=== PATIENT | female | born 1955 | race African-American/Black ===

== ENCOUNTER 2016-12-28 16:49 | Inpatient (IN) | payer OTHER ==
[~2016-12-28] VITALS: Ht 170.2 cm; Wt 113.0 kg
[2016-12-28] VITALS (10 sets, daily range): BP systolic 85–122; BP diastolic 52–85; PULSE 98–148; RESP 16–30; TEMP 97.6; O2SAT 97–100
[~2016-12-28 16:49] MED LIST: CELE200 PO; CENTTAB9 PO; VITA400C70 PO; VITA500L4 PO
[2016-12-28] MEDS ORDERED: SODIUM CHLOR 0.9% 1000 ML INJ 1,000 ML IV ONE (17:00)
[2016-12-28] MEDS ORDERED: SODIUM CHLORIDE 0.9% FLUSH 10 ML FLUSH IVF PRN (17:00)
--- NOTE | 2016-12-28 17:19 | PD ---
HPI Chief Complaint: Syncope/Near-Syncope Time Seen by Provider: 16:55 Travel History International Travel<30 days: No Contact w/Intl Traveler<30days: No Traveled to known affect area: No History of Present Illness HPI 61yo F with PMH of chronic back pain presents to the ED with c/o episode of syncope today. Pt was watering in her yard when she had an episode of witnessed syncope and woke up with sob and diaphoretic. As per EVAC, pt was tachycardic and diaphoretic. Pt denies any chest pain, n/v, abdominal pain, back pain, focal weakness or numbness or history of DVT or PE. Denies any blood in stool or black stool. PFSH Past Medical History Cancer: Yes (CERVICAL DYSPLASIA) Diabetes: No Glaucoma: No Hepatitis: No Hiatal Hernia: No Hypertension: No Thyroid Disease: No ?: Not Past Surgical History Gynecologic Surgery: Yes (HYSTERECTOMY) Hysterectomy: Yes (PARTIAL) Pacemaker: No Social History Alcohol Use: No Tobacco Use: No Allergies-Medications (Allergen,Severity, Reaction): Coded Allergies: No Known Allergies (Unverified , 12/28/16) Reported Meds & Prescriptions Reported Meds & Active Scripts Active Reported Multivitamin Adults (Multiple Vitamins W/ Minerals) 1 Tab 1 Tab PO DAILY Review of Systems Except as stated in HPI: all other systems reviewed are Neg Physical Exam Narrative GENERAL: 61yo F in moderate distress. SKIN: Focused skin assessment warm/dry. HEAD: Atraumatic. Normocephalic. EYES: Pupils equal and round. No scleral icterus. No injection or drainage. ENT: No nasal bleeding or discharge. Mucous membranes pink and moist. NECK: Trachea midline. No JVD. CARDIOVASCULAR: Regular rate and rhythm. No murmur appreciated. RESPIRATORY: No accessory muscle use. Clear to auscultation. Breath sounds equal bilaterally. GASTROINTESTINAL: Abdomen soft, non-tender, nondistended. No rebound tenderness or guarding. MUSCULOSKELETAL: No obvious deformities. No clubbing. No cyanosis. No edema. NEUROLOGICAL: Awake and alert. No obvious cranial nerve deficits. Motor grossly within normal limits. Normal speech. PSYCHIATRIC: Appropriate mood and affect; insight and judgment normal. Data Data Last Documented VS Vital Signs Date Time Temp Pulse Resp B/P Pulse Ox O2 Delivery O2 Flow Rate FiO2 12/28/16 18:36 103 16 106/64 100 Nasal Cannula 2 5/8/17 16:50 97.6 Orders Complete Blood Count With Diff (12/28/16 16:55) Basic Metabolic Panel (Bmp) (12/28/16 16:55) B-Type Natriuretic Peptide (12/28/16 16:55) Act Partial Throm Time (Ptt) (12/28/16 16:55) Prothrombin Time / Inr (Pt) (12/28/16 16:55) Magnesium (Mg) (12/28/16 16:55) Ckmb (Isoenzyme) Profile (12/28/16 16:55) Troponin I (12/28/16 16:55) Arterial Blood Gas (Abg) (12/28/16 16:55) Blood Culture (12/28/16 16:55) Iv Access Insert/Monitor (12/28/16 16:55) Electrocardiogram (12/28/16 16:55) Ecg Monitoring (12/28/16 16:55) Oximetry (12/28/16 16:55) Oxygen Administration (12/28/16 16:55) Chest, Single Ap (12/28/16 16:55) Ct Pulmonary Angiogram (12/28/16 16:55) Sodium Chloride 0.9% Flush (Ns Flush) (12/28/16 17:00) Sodium Chlor 0.9% 1000 Ml Inj (Ns 1000 M (12/28/16 17:00) I-Stat Creatinine (12/28/16 16:57) I-Stat Profile (12/28/16 16:57) CKMB (12/28/16 17:15) CKMB% (12/28/16 17:15) Iohexol 350 Inj (Omnipaque 350 Inj) (12/28/16 19:24) Heparin Infusion ADEN.Q1H (12/28/16 19:35) Heparin Inj (Heparin Inj) (12/29/16 01:45) Heparin Inj (Heparin Inj) (12/29/16 01:45) Heparin-D5w Inj (Heparin-D5w Inj) (12/28/16 19:45) Multivitamins-Minerals Therap (Theragran (12/29/16 09:00) Admit Order (Ed Use Only) (12/28/16 19:37) Labs Laboratory Tests Test 12/28/16 12/28/1617 17:08 17:15 17:40 Bedside Hemoglobin 12.9 G/DL Bedside Hematocrit 38.0 % Bedside Sodium 138 MMOL/L Bedside Potassium 4.5 MMOL/L Bedside Chloride 106 MMOL/L Bedside Blood Urea Nitrogen 19 MG/DL Bedside Creatinine 1.3 MG/DL Bedside Glucose 286 MG/DL White Blood Count 6.4 TH/MM3 Red Blood Count 4.42 MIL/MM3 Hemoglobin 11.5 GM/DL Hematocrit 37.1 % Mean Corpuscular Volume 83.9 FL Mean Corpuscular Hemoglobin 26.0 PG Mean Corpuscular Hemoglobin 31.0 % Concent Red Cell Distribution Width 14.5 % Platelet Count 183 TH/MM3 Mean Platelet Volume 8.1 FL Neutrophils (%) (Auto) 42.5 % Lymphocytes (%) (Auto) 46.0 % Monocytes (%) (Auto) 8.9 % Eosinophils (%) (Auto) 2.1 % Basophils (%) (Auto) 0.5 % Neutrophils # (Auto) 2.7 TH/MM3 Lymphocytes # (Auto) 3.0 TH/MM3 Monocytes # (Auto) 0.6 TH/MM3 Eosinophils # (Auto) 0.1 TH/MM3 Basophils # (Auto) 0.0 TH/MM3 CBC Comment DIFF FINAL Differential Comment Prothrombin Time 10.7 SEC Prothromb Time International 1.0 RATIO Ratio Activated Partial 22.9 SEC Thromboplast Time Sodium Level 138 MEQ/L Potassium Level 4.5 MEQ/L Chloride Level 104 MEQ/L Carbon Dioxide Level 17.0 MEQ/L Anion Gap 17 MEQ/L Blood Urea Nitrogen 14 MG/DL Creatinine 1.52 MG/DL Estimat Glomerular Filtration 42 ML/MIN Rate Random Glucose 285 MG/DL Calcium Level 9.3 MG/DL Magnesium Level 2.6 MG/DL Total Creatine Kinase 220 U/L Creatine Kinase MB 0.7 NG/ML Creatine Kinase MB % 0.3 % Troponin I 0.04 NG/ML B-Type Natriuretic Peptide 52 PG/ML Blood Gas Puncture Site LT RADIAL Blood Gas Patient Temperature 98.6 Blood Gas HCO3 19 mmol/L Blood Gas Base Excess -5.4 mmol/L Blood Gas Oxygen Saturation 95 % Arterial Blood pH 7.37 Arterial Blood Partial 34 mmHg Pressure CO2 Arterial Blood Partial 88 mmHG Pressure O2 Arterial Blood Oxygen Content 13.2 Vol % Arterial Blood 0.8 % Carboxyhemoglobin Arterial Blood Methemoglobin 0.6 % Blood Gas Hemoglobin 9.8 G/DL Oxygen Delivery Device NASAL CANNULA Blood Gas Liter Flow 3 L/M MDM Medical Decision Making Medical Screen Exam Complete: Yes Emergency Medical Condition: Yes Interpretation(s) EKG: Sinus tachycardia at 141bpm. Normal axis. RBBB. Differential Diagnosis Massive PE vs. Pneumonia vs. dehydration vs. heat exhaustion vs. ACS Narrative Course 61yo F with PMH of only chronic arthritis here s/p episode of syncope. Pt woke up with sob and was diaphoretic. Pt was tachycardic, hypoxic with O2 sat 87% on RA. Pt given nasal cannula 3 L and is saturating at 100%. Pt given NS IVF and feels better. BP has improved to 105/68 and HR came down to 101bpm. Labs reviewed, no leukocytosis. H/H 11.5/37.1. Troponin 0.04. BNP 52. I obtained an I-stat for stat CT angio to r/o PE. POC creatinine 1.3. Glucose elevated at 285. CXR negative. CTA showed extensive bilateral PE. Pt reevaluated at bedside and feels much better. Pt is now hemodynamically stable with BP at 106/ 64 and HR at 103bpm. I started pt on heparin drip. Discussed with ICU attending Dr. Huitron and accepted to ICU. He was in the ED and evaluated the patient. Critical Care Narrative Aggregate critical care time was 75 minutes. Time to perform other separately billable procedures was not included in the critical care time. My time did not include minutes spent treating any other patients simultaneously or on activities that did not directly contribute to the patient's treatment. The services I provided to this patient were to treat and/or prevent clinically significant deterioration that could result in: cardiovascular collapse or . I provided critical care services requiring my management, as noted below: Chart data review, documentation time, medication orders and management, vital sign assessments/reviewing monitor data, ordering and reviewing lab tests, ordering and interpreting/reviewing x-rays and diagnostic studies, care of the patient and discussion of the patient with the admitting physicians. HemaPrompt Point of Care Internal Pos. & Neg. Controls: Passed Fecal Specimen Occult Blood: Negative Diagnosis Primary Impression: Pulmonary embolism Qualified Code: I26.09 - Other acute pulmonary embolism with acute cor pulmonale Admitting Information Admitting Physician Requests: Admit Jennyfer Bender DO December 28, 2016 17:19
[2016-12-28] MEDS ORDERED: MULT1TAB84 PO (17:21)
[2016-12-28 17:28] LABS: I-STAT POTASSIUM 4.5 MMOL/L (3.5-4.9)
[2016-12-28 17:28] LABS: AUTOMATED NEUTROPHIL # 2.7 TH/MM3 (1.8-7.7); BASOPHIL % 0.5 % (0.0-2.0); EOSINOPHIL # 0.1 TH/MM3 (0-0.4); EOSINOPHIL % 2.1 % (0.0-4.0); HEMATOCRIT 37.1 % (35.0-46.0); HEMO FLAGS DIFF FINAL; MEAN CELL VOLUME 83.9 FL (80.0-100.0); MONO % 8.9 % (0.0-8.0); NEUT % 42.5 % (16.0-70.0); PLATELET COUNT 183 TH/MM3 (150-450); RED BLOOD COUNT 4.42 MIL/MM3 (4.00-5.30); RED CELL DISTRIBUTION WIDTH 14.5 % (11.6-17.2); WHITE BLOOD COUNT 6.4 TH/MM3 (4.0-11.0)
--- NOTE | 2016-12-28 17:30 | RADRPT ---
EXAM DATE/TIME: 12/28/2016 17:14 [facility] COMPARISON: No previous studies available for comparison. INDICATIONS : Short of breath, syncope. MEDICAL HISTORY : None. SURGICAL HISTORY : None. ENCOUNTER: Initial ACUITY: 1 day PAIN SCORE: 0/10 LOCATION: Bilateral chest FINDINGS: A single view of the chest demonstrates the lungs to be symmetrically aerated without evidence of mas s, infiltrate or effusion. The cardiomediastinal contours are unremarkable. Osseous structures are intact. CONCLUSION: No acute disease. Te Mccracken MD on December 28, 2016 at 17:28 Board Certified Radiologist. This report was verified electronically.
[2016-12-28 17:38] LABS: APTT (PATIENT) 22.9 SEC (24.3-30.1); PROTHROMBIN TIME - PATIENT 10.7 SEC (9.8-11.6)
[2016-12-28 17:51] LABS: BLOOD GAS BASE EXCESS -5.4 mmol/L (-2-2); BLOOD GAS CARBOXYHEMOGLOBIN 0.8 % (0-4); BLOOD GAS HCO3 19 mmol/L (22-26); BLOOD GAS METHEMOGLOBIN 0.6 % (0-2); BLOOD GAS O2 HGB SATURATION 95 % (90-100); BLOOD GAS OXYGEN CONTENT 13.2 Vol % (12.0-20.0); BLOOD GAS PCO2 34 mmHg (38-42); BLOOD GAS PO2 88 mmHG (61-120); BLOOD GAS TOTAL HGB 9.8 G/DL (12.0-16.0); CRITICAL VALUE NO; DRAW SITE LT RADIAL; LITER FLOW 3 L/M; NUMBER OF ARTERIAL PUNCTURES 2; OXYGEN DEVICE NASAL CANNULA; STAT YES; TEMP CORR TO 98.6; ULNAR PULSE PRESENT
[2016-12-28 17:55] LABS: MAGNESIUM 2.6 MG/DL (1.5-2.5); POTASSIUM 4.5 MEQ/L (3.5-5.1)
[2016-12-28 18:07] LABS: CKMB 0.7 NG/ML (0.5-3.6)
[2016-12-28] MEDS ORDERED: IOHEXOL 350 MG/ML 10 ML VIAL (for RAD DIAG) IV ONE (19:24)
--- NOTE | 2016-12-28 19:29 | RADRPT ---
EXAM DATE/TIME: 12/28/2016 18:42 [facility] COMPARISON: No previous studies available for comparison. INDICATIONS : While doing yard work patient became dyspenic and diaphritic,low blood pressure,history of PE and DVT . IV CONTRAST: 120 cc Omnipaque 350 (iohexol) IV RADIATION DOSE: 23.15 CTDIvol (mGy) MEDICAL HISTORY : Deep venous thrombosis. Cervical dysplasia Pulmonary embolis SURGICAL HISTORY : Hysterectomy. ENCOUNTER: Initial ACUITY: 1 day PAIN SCALE: 0/10 LOCATION: chest TECHNIQUE: Volumetric scanning of the chest was performed using a pulmonary embolism protocol MIP images were re constructed. Using automated exposure control and adjustment of the mA and/or kV according to patien t size, radiation dose was kept as low as reasonably achievable to obtain optimal diagnostic quality images. FINDINGS: PULMONARY ARTERIES: Extensive bilateral pulmonary embolism. A thin strand of clot crosses the bifurcation in sagittal fas hion. Greater volume of thrombus present in right lung segmental and subsegmental vessels than on the left. LUNGS: There is no consolidation or pneumothorax . No concerning pulmonary nodule is visualized. PLEURAE: There is no pleural thickening or pleural effusion. MEDIASTINUM: There is good visualization of the great vessels of the middle mediastinum. No evidence of mediastin al or hilar adenopathy/mass. MUSCULOSKELETAL: Within normal limits for patient age. MISCELLANEOUS: The visualized upper abdominal organs demonstrate no acute abnormality. CONCLUSION: Extensive bilateral pulmonary embolism. Santhosh Alejandro MD on December 28, 2016 at 19:25 Board Certified Radiologist. This report was verified electronically.
[2016-12-28] MEDS ORDERED: ONDANSETRON HCL 4 MG/2 ML VIAL IV PRN (19:45)
[2016-12-28] MEDS ORDERED: RESP: ALBUTEROL 2.5 MG/IPRATROPIUM 0.5 MG NEB (PRN) INH (19:45)
[2016-12-28] MEDS ORDERED: METOCLOPRAMIDE HCL 10 MG/2 ML VIAL IV PRN (19:45)
[2016-12-28] MEDS ORDERED: SODIUM CHLORIDE 0.9% FLUSH 10 ML FLUSH PRN (19:45)
[2016-12-28] MEDS ORDERED: MISCELLANEOUS NURSING INFORMATION XX SCH (19:45)
[2016-12-28] MEDS ORDERED: MORPHINE SULFATE 4 MG/ML INJ IV PRN (19:45)
[2016-12-28] MEDS ORDERED: ACETAMINOPHEN 325 MG TAB PO PRN (19:45)
[2016-12-28] MEDS ORDERED: ZOLPIDEM TARTRATE 5 MG TAB PO PRN (19:45)
[2016-12-28] MEDS ORDERED: CHLORHEXIDINE GLUCONATE 2 % 1 PACK (2 CLOTHS) TOP PRN (19:45)
[2016-12-28] MEDS: HEPARIN-D5W INJ 250 ML IV SCH (19:57)
[2016-12-28] MEDS: DOCUSATE SODIUM 100 MG CAP PO SCH (21:00)
[2016-12-28] MEDS: SODIUM CHLORIDE 0.9% FLUSH 10 ML FLUSH SCH (21:00)
[2016-12-28] MEDS: FAMOTIDINE 20 MG/2 ML VIAL IV PUSH SCH (22:08)
[2016-12-29] VITALS (15 sets, daily range): BP systolic 98–148; BP diastolic 72–87; PULSE 81–100; RESP 14–22; TEMP 98–98.6; O2SAT 96–100
--- NOTE | 2016-12-29 00:17 | HHI.HP ---
[facility] Service This note is for service provided on December 28, 2016 Critical Care Medicine Primary Care Physician Non-Staff Admission Diagnosis Pulmonary embolism Diagnosis: Travel History International Travel<30 Days: No Contact w/Intl Traveler <30 Da: No Traveled to Known Affected Are: No History of Present Illness 61 year old very pleasant female with only past medical history of chronic back pain presents complaints of episode of syncope today. She was watering in her yard when she had an episode of witnessed syncope and woke up with shortness of breath and fairly diaphoretic. As per EVAC, she was tachycardic and diaphoretic. Patient denies any chest pain, nausea vomiting, abdominal pain, back pain, focal weakness or numbness or history of DVT or PE in the past. Denies any blood in stool or black stool. However her daughter who is present at the bedside during my interview is currently on Xarelto for multiple DVTs and PE. Review of Systems Constitutional: COMPLAINS OF: Diaphoretic episodes, DENIES: Fatigue, Fever, Weight gain, Weight loss, Chills, Dizziness, Change in appetite, Night Sweats Endocrine: DENIES: Abnorml menstrual pattern, Heat/cold intolerance, Polydipsia , Polyuria, Polyphagia Eyes: DENIES: Blurred vision, Diplopia, Eye inflammation, Eye pain, Vision loss , Photosensitivity, Double Vision Ears, nose, mouth, throat: DENIES: Tinnitus, Hearing loss, Vertigo, Nasal discharge, Oral lesions, Throat pain, Hoarseness, Ear Pain, Running Nose, Epistaxis, Sinus Pain, Toothache, Odynophagia Respiratory: COMPLAINS OF: Shortness of breath, DENIES: Apneas, Cough, Snoring , Wheezing, Hemoptysis, Sputum production Cardiovascular: COMPLAINS OF: Syncope, DENIES: Chest pain, Palpitations, Dyspnea on Exertion, PND, Lower Extremity Edema, Orthopnea, Claudication Gastrointestinal: DENIES: Abdominal pain, Black stools, Bloody stools, Constipation, Diarrhea, Nausea, Vomiting, Difficulty Swallowing, Anorexia Genitourinary: DENIES: Abnormal vaginal bleeding, Dysmenorrhea, Dyspareunia, Sexual dysfunction, Urinary frequency, Urinary incontinence, Urgency, Hematuria , Dysuria, Nocturia, Vaginal discharge Musculoskeletal: DENIES: Joint pain, Muscle aches, Stiffness, Joint Swelling, Back pain, Neck pain Integumentary: DENIES: Abnormal pigmentation, Pruritus, Rash, Nail changes, Breast masses, Breast skin changes, Nipple discharge Hematologic/lymphatic: DENIES: Bruising, Lymphadenopathy Immunologic/allergic: DENIES: Eczema, Urticaria Neurologic: DENIES: Abnormal gait, Headache, Localized weakness, Paresthesias, Seizures, Speech Problems, Tremor, Poor Balance Psychiatric: DENIES: Anxiety, Confusion, Mood changes, Depression, Hallucinations, Agitation, Suicidal Ideation, Homicidal Ideation, Delusions Past Family Social History Allergies: Coded Allergies: No Known Allergies (Unverified , 12/28/16) Past Medical History Chronic back pain Past Surgical History Partial hysterectomy Reported Medications Reported Meds & Active Scripts Active Reported Multivitamin Adults (Multiple Vitamins W/ Minerals) 1 Tab 1 Tab PO DAILY Active Ordered Medications Current Medications Medications (Trade) Dose Ordered Sig/Demetrius Route PRN Reason Start Time Stop Time Status Last Admin Dose Admin Sodium Chloride (NS Flush) 2 ml UNSCH PRN IVF FLUSH AFTER USING IV ACCESS 12/28/16 17:00 Heparin Sodium (Porcine) (Heparin Inj) 5,000 units UNSCH PRN IV APTT LESS THAN 25 12/29/16 01:45 Heparin Sodium (Porcine) 2500 units 2,500 units UNSCH PRN IV APTT 25 TO 39 12/29/16 01:45 Heparin Sodium/ Dextrose (Heparin-D5W Inj) 250 ml @ 0 mls/hr TITRATE IV 12/28/16 19:45 12/28/16 19:57 Multivitamins/ Minerals Therapeutic (Theragran M Tab) 1 tab DAILY PO 12/29/16 09:00 Sodium Chloride (NS Flush) 2 ml UNSCH PRN .XX FLUSH AFTER USING IV ACCESS 12/28/16 19:45 Sodium Chloride (NS Flush) 2 ml BID .XX 12/28/16 21:00 Acetaminophen (Tylenol) 650 mg Q6H PRN PO PAIN 1-10 AND/OR FEVER >101F 12/28/16 19:45 Morphine Sulfate (Morphine Inj) 2 mg Q2H PRN IV PAIN SCALE 6 TO 10 12/28/16 19:45 Famotidine (Pepcid Inj) 20 mg Q12HR IV PUSH 12/28/16 21:00 12/28/16 22:08 Ondansetron HCl (Zofran Inj) 4 mg Q6H PRN IV NAUSEA OR VOMITING 12/28/16 19:45 Metoclopramide HCl (Reglan Inj) 10 mg Q6H PRN IV NAUSEA OR VOMITING 12/28/16 19:45 Docusate Sodium (Colace) 100 mg BID PO 12/28/16 21:00 Zolpidem Tartrate (Ambien) 5 mg HS PRN PO INSOMNIA 12/28/16 19:45 Miscellaneous Information 1 Q361D XX 12/28/16 19:45 Chlorhexidine Gluconate (Chlorhexidine 2% Cloth) 3 pack Taper DAILY@04 TOP 12/29/16 04:00 12/25/17 03:59 Chlorhexidine Gluconate (Chlorhexidine 2% Cloth) 3 pack UNSCH PRN TOP HYGIENIC CARE 12/28/16 19:45 Family History Daughter has a history of DVTs and PE Social History Negative 3 Physical Exam Vital Signs Vital Signs Date Time Temp Pulse Resp B/P Pulse Ox O2 Delivery O2 Flow Rate FiO2 12/29/16 00:00 92 16 119/73 98 Nasal Cannula 2 12/28/16 23:00 98 16 111/81 100 Nasal Cannula 2 12/28/16 22:00 101 16 100/71 99 Nasal Cannula 2 12/28/16 21:00 98 16 104/69 98 Nasal Cannula 2 12/28/16 20:00 98 18 99/72 99 Nasal Cannula 2 12/28/16 19:00 102 16 105/66 100 Nasal Cannula 2 12/28/16 18:36 103 16 106/64 100 Nasal Cannula 2 12/28/16 17:51 102 16 105/68 100 Nasal Cannula 2 12/28/16 17:22 103 16 96/67 97 Nasal Cannula 2 12/28/16 17:10 105 16 85/52 100 Nasal Cannula 3 12/28/16 16:58 97 Nasal Cannula 2 12/28/16 16:50 97.6 148 30 122/85 97 Physical Exam GENERAL: Obese female in no acute distress SKIN: Warm and dry. HEAD: Normocephalic. EYES: No scleral icterus. No injection or drainage. NECK: Supple, trachea midline. No JVD or lymphadenopathy. CARDIOVASCULAR: Regular rate and rhythm without murmurs, gallops, or rubs. RESPIRATORY: Breath sounds equal bilaterally. No accessory muscle use. GASTROINTESTINAL: Abdomen soft, non-tender, nondistended. MUSCULOSKELETAL: No cyanosis, or edema. BACK: Nontender without obvious deformity. No CVA tenderness. EXTREMITIES: No clubbing or cyanosis Laboratory Laboratory Tests Test 12/28/16 12/28/16 12/28/16 17:08 17:15 17:40 Bedside Hemoglobin 12.9 Bedside Hematocrit 38.0 Bedside Sodium 138 Bedside Potassium 4.5 Bedside Chloride 106 Bedside Blood Urea Nitrogen 19 Bedside Creatinine 1.3 Bedside Glucose 286 White Blood Count 6.4 Red Blood Count 4.42 Hemoglobin 11.5 Hematocrit 37.1 Mean Corpuscular Volume 83.9 Mean Corpuscular Hemoglobin 26.0 Mean Corpuscular Hemoglobin 31.0 Concent Red Cell Distribution Width 14.5 Platelet Count 183 Mean Platelet Volume 8.1 Neutrophils (%) (Auto) 42.5 Lymphocytes (%) (Auto) 46.0 Monocytes (%) (Auto) 8.9 Eosinophils (%) (Auto) 2.1 Basophils (%) (Auto) 0.5 Neutrophils # (Auto) 2.7 Lymphocytes # (Auto) 3.0 Monocytes # (Auto) 0.6 Eosinophils # (Auto) 0.1 Basophils # (Auto) 0.0 CBC Comment DIFF FINAL Differential Comment Prothrombin Time 10.7 Prothromb Time International 1.0 Ratio Activated Partial 22.9 Thromboplast Time Sodium Level 138 Potassium Level 4.5 Chloride Level 104 Carbon Dioxide Level 17.0 Anion Gap 17 Blood Urea Nitrogen 14 Creatinine 1.52 Estimat Glomerular Filtration 42 Rate Random Glucose 285 Calcium Level 9.3 Magnesium Level 2.6 Total Creatine Kinase 220 Creatine Kinase MB 0.7 Creatine Kinase MB % 0.3 Troponin I 0.04 B-Type Natriuretic Peptide 52 Blood Gas Puncture Site LT RADIAL Blood Gas Patient Temperature 98.6 Blood Gas HCO3 19 Blood Gas Base Excess -5.4 Blood Gas Oxygen Saturation 95 Arterial Blood pH 7.37 Arterial Blood Partial 34 Pressure CO2 Arterial Blood Partial 88 Pressure O2 Arterial Blood Oxygen Content 13.2 Arterial Blood 0.8 Carboxyhemoglobin Arterial Blood Methemoglobin 0.6 Blood Gas Hemoglobin 9.8 Oxygen Delivery Device NASAL CANNULA Blood Gas Liter Flow 3 Date/Time Procedure Status Source Growth 12/28/16 17:15 Aerobic Blood Culture Received Blood Peripheral Pending 12/28/16 17:15 Anaerobic Blood Culture Received Blood Peripheral Pending Result Diagram: 12/28/16 1715 12/28/16 1715 Imaging Last 24 hours Impressions Chest X-Ray 12/28/16 1655 Signed Impressions: Service Date/Time: Wednesday, December 28, 2016 17:14 - CONCLUSION: No acute disease. Te Mccracken MD CT Angiography 12/28/16 1655 Signed Impressions: Service Date/Time: Wednesday, December 28, 2016 18:42 - CONCLUSION: Extensive bilateral pulmonary embolism. Santhosh Alejandro MD Assessment and Plan Assessment and Plan Respiratory failure - Due to Submassive PE - Treatment of underlying condition - O2 nasal cannula Pulmonary embolism - Heparin drip - Stat 2-D echo to assess for right ventricular function and TPA treatment - Serial troponins - O2 nasal cannula - Hypercoagulable workup - Hematology consult Critical Care: The total critical care time was 35 minutes. Time to perform other separately billable procedures was not included in the critical care time. Mohinder Huitron MD December 29, 2016 00:17
[2016-12-29] MEDS ORDERED: HEPARIN SODIUM - IV 10,000 UNITS/10 ML VIAL IV PRN ×2 (01:45)
[2016-12-29] MEDS: CHLORHEXIDINE GLUCONATE 2 % 1 PACK (2 CLOTHS) TOP SCH (04:00)
[2016-12-29 04:16] LABS: AUTOMATED NEUTROPHIL # 3.8 TH/MM3 (1.8-7.7); BASOPHIL % 0.5 % (0.0-2.0); EOSINOPHIL # 0.1 TH/MM3 (0-0.4); EOSINOPHIL % 1.1 % (0.0-4.0); HEMATOCRIT 32.4 % (35.0-46.0); HEMO FLAGS DIFF FINAL; LYMPH % 33.2 % (9.0-44.0); LYMPHOCYTE # 2.3 TH/MM3 (1.0-4.8); MEAN CORPUSCULAR HEMOGLOBIN 26.3 PG (27.0-34.0); MEAN CORPUSCULAR HGB CONC 31.7 % (32.0-36.0); MONO % 10.1 % (0.0-8.0); NEUT % 55.1 % (16.0-70.0); PLATELET COUNT 165 TH/MM3 (150-450); RED BLOOD COUNT 3.91 MIL/MM3 (4.00-5.30); RED CELL DISTRIBUTION WIDTH 14.4 % (11.6-17.2); WHITE BLOOD COUNT 6.9 TH/MM3 (4.0-11.0)
[2016-12-29 04:37] LABS: APTT (PATIENT) 74.9 SEC (24.3-30.1)
[2016-12-29 04:47] LABS: ALKALINE PHOSPHATASE 103 U/L (45-117); ALT (GPT) 182 U/L (10-53); ANION GAP 9 MEQ/L (5-15); AST (GOT) 138 U/L (15-37); BICARBONATE 25.1 MEQ/L (21.0-32.0); BLOOD UREA NITROGEN 10 MG/DL (7-18); CHLORIDE 107 MEQ/L (98-107); GLOMERULAR FILTRATION RATE 62 ML/MIN (>89); MAGNESIUM 2.4 MG/DL (1.5-2.5); SODIUM (NA) 141 MEQ/L (136-145); TOTAL BILIRUBIN ADULT 0.2 MG/DL (0.2-1.0)
[2016-12-29] MEDS: HEPARIN-D5W INJ 250 ML IV SCH (06:39)
--- NOTE | 2016-12-29 08:18 | HHI.CCPN ---
Subjective Remarks/Hospital Course 61 year old very pleasant female with only past medical history of chronic back pain presents complaints of episode of syncope today. She was watering in her yard when she had an episode of witnessed syncope and woke up with shortness of breath and fairly diaphoretic. As per EVAC, she was tachycardic and diaphoretic. Patient denies any chest pain, nausea vomiting, abdominal pain, back pain, focal weakness or numbness or history of DVT or PE in the past. Denies any blood in stool or black stool. However her daughter who is present at the bedside during my interview is currently on Xarelto for multiple DVTs and PE. SUBJ 12/29: Echo on my review show RV, dilation with strain and large clot in RA. As the patient had syncope, will get CT of the head to rule out acute bleed/ trauma. If negative patient has consented for TPA Objective Vital Signs Date Time Temp Pulse Resp B/P Pulse Ox O2 Delivery O2 Flow Rate FiO2 12/29/16 07:00 98 Room Air 12/29/16 06:00 92 12/29/16 04:00 98.4 15 98/72 12/29/16 00:00 2 Result Diagram: 12/29/16 0329 12/29/16 0326 Other Results Laboratory Tests Test 12/28/16 17:40 Blood Gas Puncture Site LT RADIAL Blood Gas Patient Temperature 98.6 Blood Gas HCO3 19 mmol/L (22-26) Blood Gas Base Excess -5.4 mmol/L (-2-2) Blood Gas Oxygen Saturation 95 % (90-100) Arterial Blood pH 7.37 (7.380-7.420) Arterial Blood Partial 34 mmHg (38-42) Pressure CO2 Arterial Blood Partial 88 mmHG Pressure O2 (61-120) Arterial Blood Oxygen Content 13.2 Vol % (12.0-20.0) Arterial Blood 0.8 % (0-4) Carboxyhemoglobin Arterial Blood Methemoglobin 0.6 % (0-2) Blood Gas Hemoglobin 9.8 G/DL (12.0-16.0) Oxygen Delivery Device NASAL CANNULA Blood Gas Liter Flow 3 L/M Imaging Last 24 hours Impressions Chest X-Ray 12/28/16 0341 Signed Impressions: Service Date/Time: Wednesday, December 28, 2016 17:14 - CONCLUSION: No acute disease. Te Mccracken MD CT Angiography 12/28/16 1655 Signed Impressions: Service Date/Time: Wednesday, December 28, 2016 18:42 - CONCLUSION: Extensive bilateral pulmonary embolism. Santhosh Alejandro MD Objective Remarks GENERAL: Obese female in no acute distress SKIN: Warm and dry. HEAD: Normocephalic. EYES: No scleral icterus. No injection or drainage. NECK: Supple, trachea midline. No JVD or lymphadenopathy. CARDIOVASCULAR: Regular rate and rhythm without murmurs, gallops, or rubs. RESPIRATORY: Breath sounds equal bilaterally. No accessory muscle use. GASTROINTESTINAL: Abdomen soft, non-tender, nondistended. MUSCULOSKELETAL: No cyanosis, or edema. BACK: Nontender without obvious deformity. No CVA tenderness. EXTREMITIES: No clubbing or cyanosis A/P Assessment and Plan NEURO: -CT of the head rule out bleed stat RESP: Pulmonary embolism Respiratory failure - Due to Submassive PE - O2 nasal cannula - Heparin drip - Stat 2-D echo to assess for right ventricular function and TPA treatment- shows RV dilation and strain, and large RA thrombus - If CT head negative, start TPA 10 mg IV bolus and 40 mg gtt over 2 hours, continue Heparin 1000 units per hour during TPA infusion and 4 hour post, followed by heparin PE protocol - Serial troponins, - O2 nasal cannula - Hypercoagulable workup - Hematology consult - cardiology consult for troponin elevation from RV strain CV: Elevated troponin secondary to RV strain -Normal saline IV fluids, await 2d echo formal report, cardiology consult, -getting TPA and IV heparin for PE GI: -NPO during TPA infusion -IV Protonix : -Monitor renal function closely. Day catheter. ID: -No indications for antibiotics at this time HEME: -TPA infusion, see above ENDO: -Electrolyte replacement per protocol PROPH: -Bilateral lower extremity SCDs. IV Protonix, IV heparin LINES: -Utilize peripheral IVs, central line if needed CC time 36 min. Time to perform other separately billable procedures was not included in the critical care time. Yuniel Trevizo MD December 29, 2016 08:18
[2016-12-29] MEDS ORDERED: MISCELLANEOUS NURSING INFORMATION OTHER PRN (08:45)
[2016-12-29] MEDS ORDERED: ALTEPLASE INJ 50 MG in WATER STERILE FOR INJ 100 ML IV ONE (08:45)
[2016-12-29] MEDS ORDERED: ALTEPLASE INJ 50 MG in WATER STERILE FOR INJ 50 ML IV ONE (09:00)
--- NOTE | 2016-12-29 09:09 | EC ---
Study Study Date:12/29/2016 STUDY CONCLUSIONS SUMMARY - Left ventricle: The cavity size was normal. Wall thickness was normal. Systolic function was normal. The estimated ejection fraction was in the range of 50% to 55%. Wall motion was normal; there were no regional wall motion abnormalities. - Right ventricle: The cavity size was mildly to moderately dilated. Wall thickness was normal. - Right atrium: The atrium was mildly dilated. - Tricuspid valve: Mild regurgitation. - Pulmonary arteries: Systolic pressure was moderately increased. PA peak pressure: 38mm Hg (S). If LV function is below 40, please consider prescribing an ACEI or ARB or document rationale for non-use. PROCEDURE DATA STUDY STATUS: Elective. Procedure: Transthoracic echocardiography. Image quality was good. Scanning was performed from the parasternal, apical, and subcostal acoustic windows. Study completion: The patient tolerated the procedure well. Transthoracic echocardiography. M-mode, complete 2D, complete spectral Doppler, and color Doppler. Patient status: Inpatient. CARDIAC ANATOMY LEFT VENTRICLE: The cavity size was normal. Wall thickness was normal. Systolic function was normal. The estimated ejection fraction was in the range of 50% to 55%. Wall motion was normal; there were no regional wall motion abnormalities. AORTIC VALVE: Trileaflet; mildly thickened leaflets. Doppler: Transvalvular velocity was within the normal range. There was no stenosis. No regurgitation. AORTA: Aortic root: The aortic root was normal in size. MITRAL VALVE: Structurally normal valve. Doppler: Transvalvular velocity was within the normal range. There was no evidence for stenosis. No regurgitation. LEFT ATRIUM: The atrium was normal in size. RIGHT VENTRICLE: The cavity size was mildly to moderately dilated. Wall thickness was normal. PULMONIC VALVE: Doppler: Transvalvular velocity was within the normal range. There was no evidence for stenosis. No regurgitation. TRICUSPID VALVE: Structurally normal valve. Doppler: Transvalvular velocity was within the normal range. Mild regurgitation. PULMONARY ARTERY: The main pulmonary artery was normal-sized. Systolic pressure was moderately increased. RIGHT ATRIUM: Large thrombus noted in RA (Called to Dr Beverly) The atrium was mildly dilated. PERICARDIUM: There was no pericardial effusion. SYSTEMIC VEINS: Inferior vena cava: The vessel was normal in size. BASIC MEASUREMENTS ADULT Normal Left ventricle LV internal dimension, ED, chordal level, *41 mm 43-52 PLAX LV internal dimension, ES, chordal level, 31.4 mm 23-38 PLAX Fractional shortening, chordal level, PLAX *23 % >29 LV posterior wall thickness, ED 7.48 mm IVS/LVPW ratio, ED *1.51 <1.3 Ventricular septum Septal thickness, ED 11.3 mm Aortic valve Leaflet separation 19 mm 15-26 Left atrium Anterior-posterior dimension 36 mm Right ventricle RV internal dimension, ED, PLAX 28.5 mm 19-38 BASIC MEASUREMENTS ADULT Normal Aortic valve Leaflet separation 19 mm 15-26 Aorta Root diameter, ED 27 mm 20-37 DOPPLER MEASUREMENTS ADULT Normal Main pulmonary artery Pressure, S *38 mm Hg =30 Aortic valve Peak velocity, S 129 cm/s Mitral valve Peak E-wave velocity 47.4 cm/s Peak A-wave velocity 67.6 cm/s Peak E/A ratio 0.7 Tricuspid valve Regurgitant peak velocity 255 cm/s Peak RV-RA gradient, S 26 mm Hg Maximal regurgitant velocity 255 cm/s Systemic veins Estimated CVP 10 mm Hg Right ventricle RV pressure, S *38 mm Hg <30 LEGEND: Mean values are shown as u=mean value. Asterisk (*) mcknight values outside specified normal range. Amended Mariela Zamudio [id number]
[2016-12-29] MEDS: DOCUSATE SODIUM 100 MG CAP PO SCH ×2 (10:04→20:30)
[2016-12-29] MEDS: MULTIVITAMINS/MINERALS THERAPEUTIC TAB PO SCH (10:04)
[2016-12-29] MEDS: FAMOTIDINE 20 MG/2 ML VIAL IV PUSH SCH ×2 (10:04→20:30)
[2016-12-29] MEDS: SODIUM CHLORIDE 0.9% FLUSH 10 ML FLUSH SCH ×2 (10:05→20:30)
--- NOTE | 2016-12-29 10:05 | RADRPT ---
EXAM DATE/TIME: 12/29/2016 09:38 [facility] COMPARISON: CT PULMONARY ANGIOGRAM, December 28, 2016, 18:42. INDICATIONS : Syncope, cephalgia. Being treated for multiple pulmonary emboli. RADIATION DOSE: 56.37 CTDIvol (mGy) MEDICAL HISTORY : None SURGICAL HISTORY : None. ENCOUNTER: Initial ACUITY: 1 day PAIN SCALE: 4/10 LOCATION: Bilateral cranial TECHNIQUE: Multiple contiguous axial images were obtained of the head. Using automated exposure control and adj ustment of the mA and/or kV according to patient size, radiation dose was kept as low as reasonably a chievable to obtain optimal diagnostic quality images. FINDINGS: CEREBRUM: The ventricles are normal for age. No evidence of midline shift, mass lesion, hemorrhage or acute in farction. No extra-axial fluid collections are seen. POSTERIOR FOSSA: The cerebellum and brainstem are intact. The 4th ventricle is midline. The cerebellopontine angle i s unremarkable. EXTRACRANIAL: Mild mucosal thickening sphenoid sinus. SKULL: The calvaria is intact. No evidence of skull fracture. CONCLUSION: Mild sphenoid sinus disease. No acute intracranial findings. Saman Combs MD on December 29, 2016 at 9:58 Board Certified Radiologist. This report was verified electronically.
[2016-12-29 10:35] LABS: APTT (PATIENT) 83.3 SEC (24.3-30.1)
--- NOTE | 2016-12-29 11:24 | MB ---
cc: ASHLEY VARGAS DATE OF CONSULTATION 12/29/2016 INDICATION Elevated troponin HISTORY OF PRESENT ILLNESS This is a 61-year-old female with a history of chronic back pain, but no prior known heart disease. She presented yesterday with an episode of syncope. She was out in her yard watering when she had a witnessed syncopal arrest. She woke up with diaphoresis and shortness of breath. She was quite tachycardia. She came into the emergency department and was found to be slightly hypoxic. She had a CT angio done STAT which showed extensive bilateral pulmonary embolism. She did remain hemodynamically stable and was initiated on a heparin drip. She has elevation in her troponin from 0.04 to as high as 9.79. She had an echocardiogram performed yesterday evening which showed a right ventricular and right atrial dilation with significant thrombotic burden throughout the entire right atrium and appeared to be highly mobile. She has no particular personal history of hypercoagulability, although her daughter has a hypocoagulability disorder on Xarelto. We were consulted now for further recommendations regarding the elevated troponin. She denies any ashlyn chest pain or recent exertional angina. PAST MEDICAL HISTORY Chronic back pain and hysterectomy ALLERGIES None HOME MEDICATIONS Multivitamin REVIEW OF SYSTEMS A 12-point review of systems was performed and is negative unless otherwise as noted in the history of present illness. SOCIAL HISTORY Denies any alcohol, tobacco or drug use. FAMILY HISTORY Does report that her daughter has a history of deep vein thrombosis and pulmonary embolism on anticoagulation therapy. Her hypercoagulable disorder is not known. PHYSICAL EXAMINATION VITAL SIGNS: Temperature 98, pulse 97, blood pressure 122/73 mmHg. GENERAL: Alert and oriented x3 in no acute distress. HEENT: Exam shows pupils reactive to light and accommodation. Extraocular movements are intact. NECK: No elevation in venous distension. No thyromegaly or lymphadenopathy. No carotid bruits. LUNGS: Clear to auscultation bilaterally. CARDIOVASCULAR: Regular rate and rhythm without murmurs, rubs or gallops. ABDOMEN: Soft, nontender, and nondistended. Good bowel sounds. No hepatosplenomegaly. EXTREMITIES: Show no clubbing, cyanosis or edema. Good peripheral pulses. NEUROLOGIC: Cranial nerves intact. Motor and sensory grossly intact. LABORATORY DATA Sodium 141, potassium 4.0, BUN is 10, creatinine is 1.08, INR is 1. WBCs 6.9, hemoglobin 7.3, platelet count 165. Electrocardiogram sinus tachycardia, right bundle-branch block, left posterior fascicular block, some nonspecific ST depression associated with the tachycardia. Heart rate is 140 beats a minute. ASSESSMENT 1. Bilateral pulmonary embolism. 2. Right atrial thrombus PLAN Elevated troponin PLAN The case discussed in detail with Dr. Trevizo. There is clearly an indication for consideration of thrombolysis. The concern would be that she could have further pulmonary embolism with thrombolysis of the right atrial clot, given her right atrial and right ventricular enlargement and bilateral pulmonary embolism, I think it is still worth considering. We are going to run the tPA in addition to heparin. The origin of the right atrial thrombus is still unknown. She herself does not have a hypercoagulability disorder diagnosed, although it does run in her family with her daughter having prior DVT's and pulmonary embolism. Also concerned would be an intravascular tumor that extends possibly up to the renal vein into the IVC. Most familiar would be the renal cell carcinoma, although retroperitoneal gliosarcoma or adrenocortical carcinoma is also a consideration. She had CT of the chest, but would consider CT of the abdomen once she is clinically able to do so. From a troponin elevation standpoint, I think this is likely related to a right ventricular strain. She has no significant cardiovascular risk factors and no recent anginal symptoms. Once she makes a full recovery, depending on how the troponin trends, we will likely consider inpatient versus outpatient stress test. MD SANTO Matson/EUNICE /10:25 AM /11:09 AM
--- NOTE | 2016-12-29 11:37 | PD.PROCEDR ---
Central Line Procedure REASON FOR PROCEDURE Central venous access PROCEDURE PERFORMED Central line placement: LIJ central line CONSENT Informed consent for procedure was obtained and time out performed. The risks and benefits of the procedure were discussed to include but limited to bleeding , clot formation, infection, and even . ANESTHESIA Local injection of 1% Lidocaine DESCRIPTION OF THE PROCEDURE The patient was placed in supine, mild Trendelenburg position. The area was exposed and cleansed with ChloraPrep, times two. Large sterile drape was used to cover the patient, with the site exposed, under sterile conditions including cap, face mask, sterile gown, and sterile gloves. On single attempt, the introducer needle was inserted with negative pressure in syringe and venous flash was obtained. The guide wire was then advanced without any restriction and the needle was removed. The dilator was used without any complications. Using Seldinger technique the 20 cm triple lumen catheter was advanced over the guide wire to a depth of 17 centimeters. The guide wire was removed. All ports were aspirated with dark venous blood return and flushed easily with sterile saline. All ports were capped. Antibiotic disc was placed around central line at puncture site. The central line was secured to the skin with two interrupted 2.0 silk sutures. The area was bandaged with sterile see- through central line bandage. RADIOLOGICAL DATA Ultrasound guidance was used to locate LIJ. Doppler/color flow was used to confirm venous flow. COMPLICATIONS: No apparent complications ESTIMATED BLOOD LOSS: Less than 1 cc. Yuniel Trevizo MD December 29, 2016 11:37
--- NOTE | 2016-12-29 12:05 | RADRPT ---
EXAM DATE/TIME: 12/29/2016 11:31 [facility] COMPARISON: CHEST SINGLE AP, December 28, 2016, 17:14. INDICATIONS : Post central line placement. MEDICAL HISTORY : Arthritis. A-fib. Bilateral Pulmonary Emboli.Cervical dysplasia. SURGICAL HISTORY : Hysterectomy. Total knee replacement, right. ENCOUNTER: Subsequent ACUITY: 2 days PAIN SCORE: 0/10 LOCATION: Left chest FINDINGS: A single view of the chest demonstrates the lungs to be symmetrically aerated without evidence of mas s, infiltrate or effusion. The cardiomediastinal contours are unremarkable. Osseous structures are intact. CONCLUSION: No acute disease. Left jugular central line with tip in the SVC and no pneumothorax. Delgado Gregory MD on December 29, 2016 at 12:02 Board Certified Radiologist. This report was verified electronically.
[2016-12-29 16:04] LABS: APTT (PATIENT) 52.4 SEC (24.3-30.1)
--- NOTE | 2016-12-29 17:18 | EKG ---
Date Performed: 12/28/2016 Time Performed: 16:56:33 PTAGE: 61 years EKG: ATRIAL FLUTTER/TACHYCARDIA WITH RAPID VENTRICULAR RESPONSE RIGHT BUNDLE BRANCH BLOCK LEFT P OSTERIOR FASCICULAR BLOCK ST DEPRESSION, CONSIDER SUBENDOCARDIAL INJURY ABNORMAL ECG INTERPRETATION B ASED ON A DEFAULT AGE OF 40 YEARS Compared to PREVIOUS TRACING , there is a new right bundle branch blog with atrial flutter with 2:1 h eart block vs. sinus tachycardia. Clinical correlation is recommended. PREVIOUS TRACIN12/16/2009 0 9.40 DOCTOR: Sim Carlos Interpretating Date/Time 12/29/2016 17:16:55
[2016-12-29 21:57] LABS: APTT (PATIENT) 42.7 SEC (24.3-30.1)
--- NOTE | 2016-12-29 23:10 | MB ---
cc: KERRI HUITRON MD, ABDUL J. M.D. DATE OF CONSULTATION: 12/29/2016 REQUESTING PHYSICIAN: Dr. Huitron REASON FOR CONSULTATION: Evaluation of extensive pulmonary embolism. HISTORY OF PRESENT ILLNESS: This is a 61 year-old -Congolese female. She is without any significant past medical history. She had a syncopal episode at home and then she was brought to the emergency room. The patient was found to be tachycardiac and hypoxic in the emergency room. CT angiogram showed extensive bilateral pulmonary embolism. She was started on heparin. I have been asked to see the patient for further evaluation. The patient denies any previous history of thromboembolic disease. She stated that her daughter has DVT with pulmonary embolism and currently she is on Xarelto. No other family members have pulmonary embolic disease. She had an echocardiogram which showed right heart strain with dilated right atrium and right ventricle. Also she is found to have right atrial thrombosis. Dr. Trevizo, dye stand loader, had ordered the CT of the brain. If that comes back negative then he will start her on TPA protocol. The patient states that her breathing has improved since she has been in the hospital. She has no further syncopal episode. She denies any pleuritic chest pain. She denies any nausea, vomiting, diarrhea. She denies any weight loss. The rest of the review of systems is negative. PAST MEDICAL HISTORY Chronic back pain. PAST SURGICAL HISTORY Hysterectomy. ALLERGIES None. MEDICATIONS: Prior to coming to the hospital. Multivitamin. FAMILY HISTORY: Daughter has DVT with pulmonary embolism. Currently she is on Xarelto. SOCIAL HISTORY: The patient does not smoke cigarettes, does not drink alcohol. PHYSICAL EXAMINATION: The patient is a well-developed, well-nourished -Congolese female in no apparent distress. VITAL SIGNS: Temperature 98, heart rate 97, blood pressure 122/73. HEENT: PERRLA, EOMI. Anicteric. No oral lesions noted. Neck is supple. There is no cervical, supraclavicular or axillary lymphadenopathy noted. Lungs are clear. No wheezing, rhonchi or rales. Heart is regular rate and rhythm. Abdomen is soft, nontender. No hepatosplenomegaly. Extremities: No pedal edema. Neurology: Awake, alert, oriented times three. Skin: No significant lesions are noted. ASSESSMENT Extensive bilateral pulmonary embolism with right heart strain and right atrium thrombosis. PLAN I have reviewed her available records and I had an extensive discussion with the patient regarding the pulmonary embolism. This was an unprovoked episode. She had a syncopal episode at home. She has a significant clot burden. The patient is scheduled to have a CT scan of the head. If the CT scan came back negative for intracranial bleeding, then the patient will start on TPA therapy per dye stand loader. I have discussed the case with dye stand loader, Dr. Trevizo, who will start TPA protocol with the heparin, once the intracranial bleed is ruled out. Hypercoagulable panel has been ordered.. There is no evidence of malignancy noted as the etiology of the pulmonary embolism. Further recommendations based on her hospital stay. Thank you for asking my opinion. Richard Rodriguez MD /FATEMEH /10:30 PM /10:55 PM [facility]
[2016-12-30] VITALS (14 sets, daily range): BP systolic 131–159; BP diastolic 73–94; PULSE 84–99; RESP 16–26; TEMP 98.2–98.8; O2SAT 96–100
[2016-12-30] MEDS: CHLORHEXIDINE GLUCONATE 2 % 1 PACK (2 CLOTHS) TOP SCH (02:29)
[2016-12-30] MEDS: SODIUM CHLORIDE 0.9% FLUSH 10 ML FLUSH SCH ×2 (09:00→21:47)
[2016-12-30] MEDS: MULTIVITAMINS/MINERALS THERAPEUTIC TAB PO SCH (09:08)
[2016-12-30] MEDS: DOCUSATE SODIUM 100 MG CAP PO SCH ×2 (09:08→21:46)
[2016-12-30] MEDS: FAMOTIDINE 20 MG/2 ML VIAL IV PUSH SCH ×2 (09:09→21:46)
--- NOTE | 2016-12-30 11:15 | HHI.CCPN ---
Subjective Remarks/Hospital Course 61 year old very pleasant female with only past medical history of chronic back pain presents complaints of episode of syncope today. She was watering in her yard when she had an episode of witnessed syncope and woke up with shortness of breath and fairly diaphoretic. As per EVAC, she was tachycardic and diaphoretic. Patient denies any chest pain, nausea vomiting, abdominal pain, back pain, focal weakness or numbness or history of DVT or PE in the past. Denies any blood in stool or black stool. However her daughter who is present at the bedside during my interview is currently on Xarelto for multiple DVTs and PE. SUBJ 12/29: Echo on my review show RV, dilation with strain and large clot in RA. As the patient had syncope, will get CT of the head to rule out acute bleed/ trauma. If negative patient has consented for TPA. 12/30: Resting in bed, not in any acute distress. Denies SOB. Had some left sided chest pain last night transiently. Objective Vital Signs Date Time Temp Pulse Resp B/P Pulse Ox O2 Delivery O2 Flow Rate FiO2 12/30/16 10:00 95 12/30/16 08:00 98.7 16 151/77 96 12/30/16 07:56 21 12/30/16 07:00 Room Air 12/29/16 00:00 2 Intake and Output 12/29/16 12/29/16 12/30/16 08:00 16:00 00:00 Intake Total 414 ml 456 ml 785 ml Balance 414 ml 456 ml 785 ml Result Diagram: 12/29/16 0329 12/29/16 0326 Imaging Last 24 hours Impressions Chest X-Ray 12/28/161654 Signed Impressions: Service Date/Time: Wednesday, December 28, 2016 17:14 - CONCLUSION: No acute disease. Te Mccracken MD CT Angiography 12/28/161654 Signed Impressions: Service Date/Time: Wednesday, December 28, 2016 18:42 - CONCLUSION: Extensive bilateral pulmonary embolism. Santhosh Alejandro MD Objective Remarks GENERAL: Obese female in no acute distress SKIN: Warm and dry. HEAD: Normocephalic. EYES: No scleral icterus. No injection or drainage. NECK: Supple, trachea midline. No JVD or lymphadenopathy. CARDIOVASCULAR: Regular rate and rhythm without murmurs, gallops, or rubs. RESPIRATORY: Breath sounds equal bilaterally. No accessory muscle use. GASTROINTESTINAL: Abdomen soft, non-tender, nondistended. MUSCULOSKELETAL: No cyanosis, or edema. BACK: Nontender without obvious deformity. No CVA tenderness. EXTREMITIES: No clubbing or cyanosis A/P Assessment and Plan NEURO: -CT of the head rule out bleed stat RESP: Pulmonary embolism Respiratory failure - Due to Submassive PE - O2 nasal cannula - Heparin drip - Stat 2-D echo to assess for right ventricular function and TPA treatment- shows RV dilation and strain, and large RA thrombus - CT head negative, given TPA 10 mg IV bolus and 40 mg gtt over 2 hours on 12/29, continued Heparin 1000 units per hour during TPA infusion and 4 hour post, followed by heparin PE protocol - Elevated troponins noted - O2 nasal cannula - Hypercoagulable workup - Hematology consult noted - cardiology consult for troponin elevation from RV strain noted. CV: Elevated troponin secondary to RV strain -Normal saline IV fluids, await 2d echo formal report, cardiology consult, -getting TPA and IV heparin for PE GI: -NPO during TPA infusion -IV Protonix : -Monitor renal function closely. Day catheter. ID: -No indications for antibiotics at this time HEME: -TPA infusion, see above ENDO: -Electrolyte replacement per protocol PROPH: -Bilateral lower extremity SCDs. IV Protonix, IV heparin LINES: -Utilize peripheral IVs, central line if needed Consult and transfer to hospitalist service for further medical management. Critical care will be signing off, please reconsult if needed Shelton Alvarado MD December 30, 2016 11:15
[2016-12-30 11:25] LABS: APTT (PATIENT) 37.9 SEC (24.3-30.1)
[2016-12-30] MEDS: HEPARIN-D5W INJ 250 ML IV SCH (11:48)
--- NOTE | 2016-12-30 12:46 | PD.ONC.PN ---
Subjective Subjective Remarks Afebrile overnight. Pt resting in bed in no distress. She tells me that she is breathing easier and she is having less chest pain. She had some bleeding from her R nostril when she blew her nose but this stopped on its own. Objective Data Date Time Temp Pulse Resp B/P Pulse Ox O2 Delivery O2 Flow Rate FiO2 12/30/16 10:00 95 12/30/16 08:00 98.7 84 16 151/77 96 12/30/16 08:00 84 12/30/16 07:56 97 21 12/30/16 07:00 99 Room Air 12/30/16 06:00 89 12/30/16 04:00 98 12/30/16 04:00 98.3 98 18 135/73 99 12/30/16 03:00 88 12/30/16 02:00 87 12/30/16 00:00 95 12/30/16 00:00 98.6 95 21 135/76 97 12/29/16 22:00 100 12/29/16 20:09 96 12/29/16 20:00 98.3 87 22 148/87 98 12/29/16 20:00 85 12/29/16 19:00 98 Room Air 12/29/16 18:00 92 12/29/16 16:00 98.4 94 22 139/81 99 12/29/16 16:00 84 12/29/16 14:00 84 12/30/16 12/30/16 12/30/16 06:59 14:59 22:59 Intake Total 316 ml Balance 316 ml Result Diagram: 12/29/16 0329 12/29/16 0326 Laboratory Results Laboratory Tests Test 12/29/16 12/29/16 12/30/16 12/30/16 15:09 21:28 03:45 10:50 Activated Partial 52.4 SEC 42.7 SEC 38.0 SEC 37.9 SEC Thromboplast Time Culture Results Microbiology Date/Time Procedure Status Source Growth 12/28/16 17:00 Aerobic Blood Culture - Preliminary Resulted Blood Peripheral NO GROWTH IN 2 DAYS 12/28/16 17:00 Anaerobic Blood Culture - Preliminary Resulted Blood Peripheral NO GROWTH IN 2 DAYS 12/28/16 17:15 Aerobic Blood Culture - Preliminary Resulted Blood Peripheral NO GROWTH IN 2 DAYS 12/28/16 17:15 Anaerobic Blood Culture - Preliminary Resulted Blood Peripheral NO GROWTH IN 2 DAYS Administered Medications Medications (Trade) Dose Ordered Sig/Demetrius Route PRN Reason Start Time Stop Time Status Last Admin Dose Admin Heparin Sodium/ Dextrose (Heparin-D5W Inj) 250 ml @ 0 mls/hr TITRATE IV 12/28/16 19:45 12/30/16 11:48 Multivitamins/ Minerals Therapeutic (Theragran M Tab) 1 tab DAILY PO 12/29/16 09:00 12/30/16 09:08 Sodium Chloride (NS Flush) 2 ml BID .XX 12/28/16 21:00 12/30/16 09:00 Acetaminophen (Tylenol) 650 mg Q6H PRN PO PAIN 1-10 AND/OR FEVER >101F 12/28/16 19:45 12/29/16 12:32 Famotidine (Pepcid Inj) 20 mg Q12HR IV PUSH 12/28/16 21:00 12/30/16 09:09 Docusate Sodium (Colace) 100 mg BID PO 12/28/16 21:00 12/30/16 09:08 Chlorhexidine Gluconate (Chlorhexidine 2% Cloth) 3 pack Taper DAILY@04 TOP 12/29/16 04:00 12/25/17 03:59 12/29/16 04:00 Objective Remarks GENERAL: Older female, pleasant, sitting up in bed in no distress. SKIN: Warm and dry. No oozing from lines. HEAD: Normocephalic. EYES: No injection or drainage. NECK: Supple, trachea midline. CARDIOVASCULAR: Regular rate and rhythm without murmurs. RESPIRATORY: Breath sounds equal bilaterally. No accessory muscle use. GASTROINTESTINAL: Abdomen soft, non-tender, nondistended. EXTREMITIES: Mild generalized edema to BLE. NEUROLOGICAL: No obvious focal deficit. Awake, alert, and oriented x3. Assessment/Plan Problem List: (1) Pulmonary embolism Status: Acute Plan: 12/30/16: Continue heparin gt. Monitor for bleeding. Await hypercoagulable workup. Assessment 61 y/o female admitted for syncope, SOB and chest pain found to have a PE. Attending Statement SOB and CP have improved. S/P TPA, now on heparin will transition to eliquis or pradaxa The exam, history, and the medical decision-making described in the above note were completed with the assistance of the mid-level provider. I reviewed and agree with the findings presented. I attest that I had a [id number] encounter with the patient on the same day, and personally performed and documented my assessment and findings in the medical record. Problem Qualifiers (1) Pulmonary embolism: Qualified Code: I26.09 - Other acute pulmonary embolism with acute cor pulmonale Celestina Mckeon December 30, 2016 12:46 Russell Rodriguez MD December 30, 2016 22:21
[2016-12-30 18:27] LABS: APTT (PATIENT) 37.2 SEC (24.3-30.1)
--- NOTE | 2016-12-30 19:41 | EKG ---
Date Performed: 12/30/2016 Time Performed: 02:41:20 PTAGE: 61 years EKG: Sinus rhythm Right bundle branch block Lateral T wave changes are nonspecific Compared to the PREVIOUS TRACING tachycardia no longer present DOCTOR: Jumana Dickey Interpretating Date/Time 12/30/2016 19:39:54
[2016-12-31] VITALS (12 sets, daily range): BP systolic 112–140; BP diastolic 71–92; PULSE 81–101; RESP 14–29; TEMP 98.2–98.7; O2SAT 96–99
[2016-12-31 02:37] LABS: APTT (PATIENT) 39.8 SEC (24.3-30.1)
[2016-12-31] MEDS: CHLORHEXIDINE GLUCONATE 2 % 1 PACK (2 CLOTHS) TOP SCH (04:00)
[2016-12-31] MEDS: HEPARIN-D5W INJ 250 ML IV SCH (08:45)
[2016-12-31] MEDS: DOCUSATE SODIUM 100 MG CAP PO SCH ×2 (08:47→21:34)
[2016-12-31] MEDS: FAMOTIDINE 20 MG/2 ML VIAL IV PUSH SCH ×2 (08:47→21:35)
[2016-12-31] MEDS: MULTIVITAMINS/MINERALS THERAPEUTIC TAB PO SCH (08:47)
[2016-12-31] MEDS: SODIUM CHLORIDE 0.9% FLUSH 10 ML FLUSH SCH ×2 (08:47→21:35)
[2016-12-31 09:45] LABS: APTT (PATIENT) 40.9 SEC (24.3-30.1)
[2016-12-31 09:50] LABS: THROMBIN TIME FOR LA ND sec (13-19)
--- NOTE | 2016-12-31 14:54 | HHI.PR ---
Subjective Remarks Pt is a 61 y/o F admitted d/t to b/l PE. Echocardiogram showed large RA thrombus. Pt received tPA & IV Heparin No arrhythmia noted. Pt has been seen by Hematology. Hypercoag w/u has been initiated and pt will f/u with Dr. Jennifer camara. Hematology wrote to stop heparin and transition the pt to PO Eliqis. Pt is comfortable on RA Objective Vitals Vital Signs Date Time Temp Pulse Resp B/P Pulse Ox O2 Delivery O2 Flow Rate FiO2 12/31/16 12:00 85 12/31/16 12:00 98.4 86 29 127/79 99 12/31/16 10:00 97 12/31/16 08:00 98.5 101 27 123/92 97 12/31/16 08:00 101 12/31/16 07:00 Room Air 12/31/16 06:00 84 12/31/16 04:00 88 12/31/16 04:00 98.3 88 14 140/86 97 12/31/16 02:00 90 12/31/16 00:00 98.3 96 16 129/91 96 12/31/16 00:00 96 12/30/16 22:00 94 12/30/16 20:00 98.8 99 21 140/78 99 12/30/16 20:00 99 12/30/16 19:00 99 Room Air 12/30/16 18:00 96 12/30/16 16:00 90 12/30/16 16:00 98.2 92 22 131/77 99 12/30/16 12/30/16 12/31/16 15:00 23:00 07:00 Intake Total 344 ml 329 ml 103 ml Output Total 900 ml 950 ml 900 ml Balance -556 ml -621 ml -797 ml Intake Oral 240 ml 240 ml IV Total 104 ml 89 ml 103 ml Output Urine Total 900 ml 950 ml 900 ml # Bowel Movements 0 Result Diagram: 12/29/16 0329 12/29/16 0326 Imaging Last Impressions Chest X-Ray 12/29/16 1118 Signed Impressions: Service Date/Time: Thursday, December 29, 2016 11:31 - CONCLUSION: No acute disease. Left jugular central line with tip in the SVC and no pneumothorax. Delgado Gregory MD Head CT 12/29/16 0879 Signed Impressions: Service Date/Time: Thursday, December 29, 2016 09:38 - CONCLUSION: Mild sphenoid sinus disease. No acute intracranial findings. Saman Combs MD CT Angiography 12/28/16 1655 Signed Impressions: Service Date/Time: Wednesday, December 28, 2016 18:42 - CONCLUSION: Extensive bilateral pulmonary embolism. Santhosh Alejandro MD Objective Remarks GENERAL: This is a well-nourished, well-developed patient, in no apparent distress. CARDIOVASCULAR: Regular rate and rhythm without murmurs, gallops, or rubs. RESPIRATORY: Clear to auscultation. Breath sounds equal bilaterally. No wheezes , rales, or rhonchi. GASTROINTESTINAL: Abdomen soft, non-tender, nondistended. Normal active bowel sounds MUSCULOSKELETAL: Extremities without clubbing, cyanosis, or edema. NEURO: Alert & Oriented x4 to person, place, time, situation. Moves all ext x4 A/P Problem List: (1) Pulmonary embolism Status: Acute Plan: - unprovoked - CTA (12/28/16) --> extensive b/l PE - Echocardiogram showed large RA thrombus. - Pt received tPA & IV Heparin - No arrhythmia noted. - comgmt with Hematology. - Hypercoag w/u has been initiated and pt will f/u with Dr. Jennifer camara. - Hematology wrote to stop heparin and transition the pt to PO Eliqis. - Pt is comfortable on RA - will obtain CT abd/pelvis, r/o RCC, retroperitoneal gliosarcoma, adrenocortical carcinoma - repeat echocardiogram to reevaluate atrial thrombus - case d/w Dr. Felix (12/31/16) - depending on results of repeat Echocardiogram, will decide if lexiscan inpt or outpt - anticipate d/c to home 01/01, if pt remains stable Problem Qualifiers (1) Pulmonary embolism: Qualified Code: I26.09 - Other acute pulmonary embolism with acute cor pulmonale Aris Valentine DO December 31, 2016 14:54
[2016-12-31] MEDS ORDERED: DIATRIZOATE MEGLUM/DIATRIZOATE SOD 9 ML CUP PO ONE (16:15)
--- NOTE | 2016-12-31 17:04 | PD.ONC.PN ---
Subjective Subjective Remarks Pt was seen today late morning and this note reflects that encounter. Afebrile overnight Chest pain improved Denies SOB Objective Data Date Time Temp Pulse Resp B/P Pulse Ox O2 Delivery O2 Flow Rate FiO2 12/31/16 16:00 98.7 81 24 134/77 99 12/31/16 14:00 90 12/31/16 12:00 85 12/31/16 12:00 98.4 86 29 127/79 99 12/31/16 10:00 97 12/31/16 08:00 98.5 101 27 123/92 97 12/31/16 08:00 101 12/31/16 07:00 Room Air 12/31/16 06:00 84 12/31/16 04:00 88 12/31/16 04:00 98.3 88 14 140/86 97 12/31/16 02:00 90 12/31/16 00:00 98.3 96 16 129/91 96 12/31/16 00:00 96 12/30/16 22:00 94 12/30/16 20:00 98.8 99 21 140/78 99 12/30/16 20:00 99 12/30/16 19:00 99 Room Air 12/30/16 18:00 96 12/31/16 12/31/16 12/31/16 07:00 15:00 23:00 Intake Total 103 ml 615 ml Output Total 900 ml 950 ml Balance -797 ml -335 ml Result Diagram: 12/29/16 0329 12/29/16 0326 Laboratory Results Laboratory Tests Test 12/30/16 12/31/16 12/31/16 12/31/16 17:00 02:00 08:50 09:20 Activated Partial 37.2 SEC 39.8 SEC 40.9 SEC Thromboplast Time Nasal Screen MRSA (PCR) MRSA NOT DETECTED Culture Results Microbiology Date/Time Procedure Status Source Growth 12/28/16 17:00 Aerobic Blood Culture - Preliminary Resulted Blood Peripheral NO GROWTH IN 3 DAYS 12/28/16 17:00 Anaerobic Blood Culture - Preliminary Resulted Blood Peripheral NO GROWTH IN 3 DAYS 12/28/16 17:15 Aerobic Blood Culture - Preliminary Resulted Blood Peripheral NO GROWTH IN 3 DAYS 12/28/16 17:15 Anaerobic Blood Culture - Preliminary Resulted Blood Peripheral NO GROWTH IN 3 DAYS Administered Medications Medications (Trade) Dose Ordered Sig/Demetrius Route PRN Reason Start Time Stop Time Status Last Admin Dose Admin Multivitamins/ Minerals Therapeutic (Theragran M Tab) 1 tab DAILY PO 12/29/16 09:00 12/31/16 08:47 Sodium Chloride (NS Flush) 2 ml BID .XX 12/28/16 21:00 12/31/16 08:47 Acetaminophen (Tylenol) 650 mg Q6H PRN PO PAIN 1-10 AND/OR FEVER >101F 12/28/16 19:45 12/29/16 12:32 Famotidine (Pepcid Inj) 20 mg Q12HR IV PUSH 12/28/16 21:00 12/31/16 08:47 Docusate Sodium (Colace) 100 mg BID PO 12/28/16 21:00 12/31/16 08:47 Chlorhexidine Gluconate (Chlorhexidine 2% Cloth) 3 pack Taper DAILY@04 TOP 12/29/16 04:00 12/25/17 03:59 12/29/16 04:00 Objective Remarks GENERAL: Older female, pleasant, sitting up in bed in no distress. SKIN: Warm and dry. No oozing from lines. HEAD: Normocephalic. EYES: No injection or drainage. NECK: Supple, trachea midline. CARDIOVASCULAR: Regular rate and rhythm without murmurs. RESPIRATORY: Breath sounds equal bilaterally. No accessory muscle use. GASTROINTESTINAL: Abdomen soft, non-tender, nondistended. EXTREMITIES: Mild generalized edema to BLE. NEUROLOGICAL: No obvious focal deficit. Awake, alert, and oriented x3. Assessment/Plan Problem List: (1) Pulmonary embolism Status: Acute Plan: 12/31/16: Transition from heparin to Eliquis tonight. Pt should take 10mg po BID for 7 days followed by 5mg po BID. Discussed with Dr Alvarado. 12/30/16: Continue heparin gt. Monitor for bleeding. Await hypercoagulable workup. Assessment 61 y/o female admitted for syncope, SOB and chest pain found to have a PE. Attending Statement fells better Start Eliquis today and stop heparin The exam, history, and the medical decision-making described in the above note were completed with the assistance of the mid-level provider. I reviewed and agree with the findings presented. I attest that I had a [id number] encounter with the patient on the same day, and personally performed and documented my assessment and findings in the medical record. Problem Qualifiers (1) Pulmonary embolism: Qualified Code: I26.09 - Other acute pulmonary embolism with acute cor pulmonale Celestina Mckeon December 31, 2016 17:04 Russell Rodriguez MD December 31, 2016 22:35
[2016-12-31] MEDS: APIXABAN 5 MG TABLET PO SCH (17:12)
--- NOTE | 2016-12-31 22:58 | RADRPT ---
EXAM DATE/TIME: 12/31/2016 21:59 [facility] COMPARISON: No previous studies available for comparison. INDICATIONS : Rule out metastisis ORAL CONTRAST: Prescribed oral contrast ingested. RADIATION DOSE: 15.38 CTDIvol (mGy) MEDICAL HISTORY : Retroperitoneal gliosarcoma or adrenocortical carcinoma SURGICAL HISTORY : Hysterectomy. ENCOUNTER: Initial ACUITY: 1 day PAIN SCALE: 1/10 LOCATION: Abdomen TECHNIQUE: Volumetric scanning of the abdomen and pelvis was performed. Using automated exposure control and ad justment of the mA and/or kV according to patient size, radiation dose was kept as low as reasonably achievable to obtain optimal diagnostic quality images. FINDINGS: LOWER LUNGS: The visualized lower lungs are clear. LIVER: Cyst in the left lobe of the liver. No suspicious mass. No biliary ductal dilatation. SPLEEN: Normal size without lesion. PANCREAS: Within normal limits. KIDNEYS: Normal in size and shape. There is no mass, stone, or hydronephrosis. ADRENAL GLANDS: Within normal limits. VASCULAR: There is no aortic aneurysm. BOWEL/MESENTERY: The stomach, small bowel, and colon demonstrate no acute abnormality. There is no free intraperitone al air or fluid. ABDOMINAL WALL: Within normal limits. RETROPERITONEUM: There is no lymphadenopathy. BLADDER: No wall thickening or mass. REPRODUCTIVE: Uterus is surgically absent. No evidence of pelvic mass or free fluid INGUINAL: There is no lymphadenopathy or hernia. MUSCULOSKELETAL: Within normal limits for patient age. CONCLUSION: Liver cyst. Otherwise unremarkable noncontrast CT appearance of the abdomen and pelvis. Santhosh Alejandro MD on December 31, 2016 at 22:52 Board Certified Radiologist. This report was verified electronically.
[2017-01-01] VITALS: BP 123/70; PULSE 106; RESP 18; TEMP 98.3; O2SAT 98
[2017-01-01 04:00] VITALS: BP 109/57; PULSE 85; RESP 16; TEMP 98.3; O2SAT 98
[2017-01-01] MEDS: CHLORHEXIDINE GLUCONATE 2 % 1 PACK (2 CLOTHS) TOP SCH (04:00)
[2017-01-01] MEDS: APIXABAN 5 MG TABLET PO SCH ×2 (04:49→16:21)
[2017-01-01 07:16] LABS: HEMATOCRIT 31.8 % (35.0-46.0); HEMO FLAGS DIFF FINAL; MEAN CELL VOLUME 83.5 FL (80.0-100.0); MEAN CORPUSCULAR HEMOGLOBIN 27.6 PG (27.0-34.0); MEAN CORPUSCULAR HGB CONC 33.1 % (32.0-36.0); PLATELET COUNT 173 TH/MM3 (150-450); RED BLOOD COUNT 3.81 MIL/MM3 (4.00-5.30); WHITE BLOOD COUNT 5.8 TH/MM3 (4.0-11.0)
[2017-01-01 07:17] LABS: AUTOMATED NEUTROPHIL # 3.3 TH/MM3 (1.8-7.7); BASOPHIL % 0.6 % (0.0-2.0); EOSINOPHIL # 0.2 TH/MM3 (0-0.4); EOSINOPHIL % 3.3 % (0.0-4.0); LYMPH % 25.5 % (9.0-44.0); LYMPHOCYTE # 1.5 TH/MM3 (1.0-4.8); NEUT % 57.6 % (16.0-70.0)
[2017-01-01 07:37] LABS: ALT (GPT) 94 U/L (10-53); ANION GAP 10 MEQ/L (5-15); AST (GOT) 49 U/L (15-37); BICARBONATE 23.5 MEQ/L (21.0-32.0); BLOOD UREA NITROGEN 9 MG/DL (7-18); CHLORIDE 106 MEQ/L (98-107); GLOMERULAR FILTRATION RATE 59 ML/MIN (>89); MAGNESIUM 2.4 MG/DL (1.5-2.5); POTASSIUM 4.4 MEQ/L (3.5-5.1); SODIUM (NA) 139 MEQ/L (136-145)
[2017-01-01 07:39] LABS: ALKALINE PHOSPHATASE 93 U/L (45-117); TOTAL BILIRUBIN ADULT 0.3 MG/DL (0.2-1.0)
[2017-01-01 08:00] VITALS: BP 99/51; PULSE 86; RESP 16; TEMP 98.1; O2SAT 97
[2017-01-01] MEDS: DOCUSATE SODIUM 100 MG CAP PO SCH ×2 (08:37→21:08)
[2017-01-01] MEDS: FAMOTIDINE 20 MG/2 ML VIAL IV PUSH SCH ×2 (08:37→21:08)
[2017-01-01] MEDS: MULTIVITAMINS/MINERALS THERAPEUTIC TAB PO SCH (08:37)
[2017-01-01] MEDS: SODIUM CHLORIDE 0.9% FLUSH 10 ML FLUSH SCH ×2 (08:37→21:08)
--- NOTE | 2017-01-01 11:31 | PD.ONC.PN ---
Subjective Subjective Remarks Afebrile overnight. Patient states earlier today when she got up to go to the bathroom she felt her heart racing, was lightheaded and short of breath. She feels better now. Denies obvious bleeding. Objective Data Date Time Temp Pulse Resp B/P Pulse Ox O2 Delivery O2 Flow Rate FiO2 01/01/17 09:25 Room Air 21 01/01/17 08:00 98.1 86 16 99/51 97 01/01/17 04:00 98.3 85 16 109/57 98 01/01/17 00:00 98.3 106 18 123/70 98 12/31/16 21:02 97 12/31/16 20:15 Room Air 12/31/16 20:00 98.2 101 18 112/71 97 12/31/16 18:00 83 12/31/16 16:00 98.7 81 24 134/77 99 12/31/16 14:00 90 12/31/16 12:00 85 12/31/16 12:00 98.4 86 29 127/79 99 Result Diagram: 01/01/17 0611 01/01/17 0611 Laboratory Results Laboratory Tests Test 01/01/17 06:11 White Blood Count 5.8 TH/MM3 Red Blood Count 3.81 MIL/MM3 Hemoglobin 10.5 GM/DL Hematocrit 31.8 % Mean Corpuscular Volume 83.5 FL Mean Corpuscular Hemoglobin 27.6 PG Mean Corpuscular Hemoglobin 33.1 % Concent Red Cell Distribution Width 14.0 % Platelet Count 173 TH/MM3 Mean Platelet Volume 8.1 FL Neutrophils (%) (Auto) 57.6 % Lymphocytes (%) (Auto) 25.5 % Monocytes (%) (Auto) 13.0 % Eosinophils (%) (Auto) 3.3 % Basophils (%) (Auto) 0.6 % Neutrophils # (Auto) 3.3 TH/MM3 Lymphocytes # (Auto) 1.5 TH/MM3 Monocytes # (Auto) 0.8 TH/MM3 Eosinophils # (Auto) 0.2 TH/MM3 Basophils # (Auto) 0.0 TH/MM3 CBC Comment DIFF FINAL Differential Comment Hematology Comments Sodium Level 139 MEQ/L Potassium Level 4.4 MEQ/L Chloride Level 106 MEQ/L Carbon Dioxide Level 23.5 MEQ/L Anion Gap 10 MEQ/L Blood Urea Nitrogen 9 MG/DL Creatinine 1.13 MG/DL Estimat Glomerular Filtration 59 ML/MIN Rate Random Glucose 103 MG/DL Calcium Level 9.3 MG/DL Magnesium Level 2.4 MG/DL Total Bilirubin 0.3 MG/DL Aspartate Amino Transf 49 U/L (AST/SGOT) Alanine Aminotransferase 94 U/L (ALT/SGPT) Alkaline Phosphatase 93 U/L Total Protein 7.4 GM/DL Albumin 3.0 GM/DL Administered Medications Medications (Trade) Dose Ordered Sig/Demetrius Route PRN Reason Start Time Stop Time Status Last Admin Dose Admin Multivitamins/ Minerals Therapeutic (Theragran M Tab) 1 tab DAILY PO 12/29/16 09:00 01/01/17 08:37 Sodium Chloride (NS Flush) 2 ml BID .XX 12/28/16 21:00 01/01/17 08:37 Acetaminophen (Tylenol) 650 mg Q6H PRN PO PAIN 1-10 AND/OR FEVER >101F 12/28/16 19:45 12/29/16 12:32 Famotidine (Pepcid Inj) 20 mg Q12HR IV PUSH 12/28/16 21:00 01/01/17 08:37 Docusate Sodium (Colace) 100 mg BID PO 12/28/16 21:00 01/01/17 08:37 Chlorhexidine Gluconate (Chlorhexidine 2% Cloth) 3 pack Taper DAILY@04 TOP 12/29/16 04:00 12/25/17 03:59 12/29/16 04:00 Apixaban (Eliquis) 10 mg Q12H PO 12/31/16 17:00 01/07/17 05:01 01/01/17 04:49 Objective Remarks GENERAL: Middle aged female, sitting up in bed in [facility]. SKIN: Warm and dry. HEAD: Normocephalic. EYES: No injection or drainage. NECK: Supple, trachea midline. CARDIOVASCULAR: Regular rate and rhythm RESPIRATORY: Breath sounds equal bilaterally. No accessory muscle use. GASTROINTESTINAL: Abdomen soft, non-tender, nondistended. EXTREMITIES: No cyanosis NEUROLOGICAL: No obvious focal deficit. Awake, alert, and oriented x3. Assessment/Plan Problem List: (1) Pulmonary embolism Status: Acute Plan: 01/01: continue Eliquis 10mg PO BID for total days then begin 5mg PO BID-- this was d/w the patient. fs faxed to npr for follow up. 12/31/16: Transition from heparin to Eliquis tonight. Pt should take 10mg po BID for 7 days followed by 5mg po BID. Discussed with Dr Alvarado. 12/30/16: Continue heparin gt. Monitor for bleeding. Await hypercoagulable workup. Assessment 61 y/o female admitted for syncope, SOB and chest pain found to have a PE. 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 CT A./P = Neg continue eliquis will follow. The exam, history, and the medical decision-making described in the above note were completed with the assistance of the mid-level provider. I reviewed and agree with the findings presented. I attest that I had a [id number] encounter with the patient on the same day, and personally performed and documented my assessment and findings in the medical record. Problem Qualifiers (1) Pulmonary embolism: Qualified Code: I26.09 - Other acute pulmonary embolism with acute cor pulmonale Zahra Lyman January 01, 2017 11:31 Russell Rodriguez MD January 01, 2017 23:33
[2017-01-01 12:00] VITALS: BP 103/61; PULSE 92; RESP 16; TEMP 97.7; O2SAT 96
--- NOTE | 2017-01-01 15:07 | HHI.PR ---
Subjective Remarks Pt had some dizziness this morning when ambulating. Her BP was noted to be low this morning. Pt tolerating Eliquis Objective Vitals Vital Signs Date Time Temp Pulse Resp B/P Pulse Ox O2 Delivery O2 Flow Rate FiO2 01/01/17 12:00 97.7 92 16 103/61 96 01/01/17 09:25 Room Air 21 01/01/17 08:00 98.1 86 16 99/51 97 01/01/17 04:00 98.3 85 16 109/57 98 01/01/17 00:00 98.3 106 18 123/70 98 12/31/16 21:02 97 12/31/16 20:15 Room Air 12/31/16 20:00 98.2 101 18 112/71 97 12/31/16 18:00 83 12/31/16 16:00 98.7 81 24 134/77 99 12/31/16 12/31/16 01/01/17 15:00 23:00 07:00 Intake Total 615 ml 240 ml Output Total 950 ml Balance -335 ml 240 ml Intake Oral 580 ml 240 ml IV Total 35 ml Output Urine Total 950 ml Stool Total 0 ml # Voids 1 # Bowel Movements 0 Result Diagram: 01/01/17 0611 01/01/17 0611 Other Results Laboratory Tests Test 12/30/16 12/31/16 12/31/16 12/31/16 17:00 02:00 08:50 09:20 Activated Partial 37.2 SEC 39.8 SEC 40.9 SEC Thromboplast Time Nasal Screen MRSA (PCR) MRSA NOT DETECTED Test 01/01/17 06:11 White Blood Count 5.8 TH/MM3 Red Blood Count 3.81 MIL/MM3 Hemoglobin 10.5 GM/DL Hematocrit 31.8 % Mean Corpuscular Volume 83.5 FL Mean Corpuscular Hemoglobin 27.6 PG Mean Corpuscular Hemoglobin 33.1 % Concent Red Cell Distribution Width 14.0 % Platelet Count 173 TH/MM3 Mean Platelet Volume 8.1 FL Neutrophils (%) (Auto) 57.6 % Lymphocytes (%) (Auto) 25.5 % Monocytes (%) (Auto) 13.0 % Eosinophils (%) (Auto) 3.3 % Basophils (%) (Auto) 0.6 % Neutrophils # (Auto) 3.3 TH/MM3 Lymphocytes # (Auto) 1.5 TH/MM3 Monocytes # (Auto) 0.8 TH/MM3 Eosinophils # (Auto) 0.2 TH/MM3 Basophils # (Auto) 0.0 TH/MM3 CBC Comment DIFF FINAL Differential Comment Hematology Comments Sodium Level 139 MEQ/L Potassium Level 4.4 MEQ/L Chloride Level 106 MEQ/L Carbon Dioxide Level 23.5 MEQ/L Anion Gap 10 MEQ/L Blood Urea Nitrogen 9 MG/DL Creatinine 1.13 MG/DL Estimat Glomerular Filtration 59 ML/MIN Rate Random Glucose 103 MG/DL Calcium Level 9.3 MG/DL Magnesium Level 2.4 MG/DL Total Bilirubin 0.3 MG/DL Aspartate Amino Transf 49 U/L (AST/SGOT) Alanine Aminotransferase 94 U/L (ALT/SGPT) Alkaline Phosphatase 93 U/L Total Protein 7.4 GM/DL Albumin 3.0 GM/DL Imaging Last Impressions Abdomen/Pelvis CT 12/31/16 0000 Signed Impressions: Service Date/Time: December 21:59 - CONCLUSION: Liver cyst. Otherwise unremarkable noncontrast CT appearance of the abdomen and pelvis. Santhosh Alejandro MD Chest X-Ray 12/29/16 1118 Signed Impressions: Service Date/Time: Thursday, December 29, 2016 11:31 - CONCLUSION: No acute disease. Left jugular central line with tip in the SVC and no pneumothorax. Delgado Gregory MD Head CT 12/29/16 0855 Signed Impressions: Service Date/Time: Thursday, December 29, 2016 09:38 - CONCLUSION: Mild sphenoid sinus disease. No acute intracranial findings. Saman Combs MD CT Angiography 12/28/16 1655 Signed Impressions: Service Date/Time: Wednesday, December 28, 2016 18:42 - CONCLUSION: Extensive bilateral pulmonary embolism. Santhosh Alejandro MD Objective Remarks General: NAD, AAOx3 Chest: CTA Cardiac: Regular Abd: +BS, soft ND/NT Ext: No edema A/P Problem List: (1) Pulmonary embolism Status: Acute Plan: - unprovoked - CTA (12/28/16) --> extensive b/l PE - Echocardiogram showed large RA thrombus. - Pt received tPA & IV Heparin - No arrhythmia noted. - comgmt with Hematology. - Hypercoag w/u has been initiated and pt will f/u with Dr. Rodriguez outpt. - Pt has been transitioned to PO Eliqis 10mg po BID until 01/07, then decrease to 5mg po BID - Pt is comfortable on RA - CT abd/pelvis (12/31) --> Liver cyst. Otherwise unremarkable noncontrast CT appearance of the abdomen and pelvis. - Repeat echocardiogram to reevaluate atrial thrombus pending. - case d/w Dr. Felix (12/31/16) - depending on results of repeat Echocardiogram, will decide if Lexiscan inpt or outpt - Anticipate d/c to home once cleared by Cardiology Assessment and Plan Patient examined. Assessment and plan formulated with Agatha Taylor PA-C. I agree with the above. Problem Qualifiers (1) Pulmonary embolism: Qualified Code: I26.09 - Other acute pulmonary embolism with acute cor pulmonale Agatha Taylor January 01, 2017 15:07 Aris Valentine DO January 02, 2017 09:35
[2017-01-01 16:00] VITALS: BP 112/55; PULSE 89; RESP 16; TEMP 98.4; O2SAT 98
[2017-01-01 20:00] VITALS: BP 109/55; PULSE 84; RESP 18; TEMP 98.5; O2SAT 99
[2017-01-02 00:29] VITALS: BP 104/64; PULSE 89; RESP 18; TEMP 98.3; O2SAT 97
[2017-01-02 04:00] VITALS: BP 109/61; PULSE 79; RESP 18; TEMP 98.3; O2SAT 99
[2017-01-02] MEDS: CHLORHEXIDINE GLUCONATE 2 % 1 PACK (2 CLOTHS) TOP SCH (04:00)
[2017-01-02] MEDS: APIXABAN 5 MG TABLET PO SCH ×2 (05:25→16:47)
[2017-01-02 08:00] VITALS: BP 125/76; PULSE 80; RESP 16; TEMP 97.8; O2SAT 98
[2017-01-02] MEDS: FAMOTIDINE 20 MG/2 ML VIAL IV PUSH SCH ×2 (08:14→20:33)
[2017-01-02] MEDS: DOCUSATE SODIUM 100 MG CAP PO SCH ×2 (08:14→20:33)
[2017-01-02] MEDS: MULTIVITAMINS/MINERALS THERAPEUTIC TAB PO SCH (08:14)
[2017-01-02] MEDS: SODIUM CHLORIDE 0.9% FLUSH 10 ML FLUSH SCH ×2 (08:14→20:33)
--- NOTE | 2017-01-02 09:31 | PD.ONC.PN ---
Subjective Subjective Remarks Afebrile overnight. Patient says she feels much better today. She does not feel short of breath or light headed. She just got up to go to the bathroom and did not feel faint, did not have tachycardia and did not feel winded. No bleeding. Tolerating Eliquis. Objective Data Date Time Temp Pulse Resp B/P Pulse Ox O2 Delivery O2 Flow Rate FiO2 01/02/17 08:00 97.8 80 16 125/76 98 01/02/17 04:00 98.3 79 18 109/61 99 01/02/17 00:29 98.3 89 18 104/64 97 01/01/17 21:00 Room Air 01/01/17 20:00 98.5 84 18 109/55 99 01/01/17 20:00 84 01/01/17 16:00 98.4 89 16 112/55 98 01/01/17 12:00 97.7 92 16 103/61 96 01/01/17 09:25 Room Air 21 01/02/17 01/02/17 01/02/17 06:59 14:59 22:59 Intake Total 400 ml Balance 400 ml Result Diagram: 01/01/1761001/01/17 0611 Administered Medications Medications (Trade) Dose Ordered Sig/Demetrius Route PRN Reason Start Time Stop Time Status Last Admin Dose Admin Multivitamins/ Minerals Therapeutic (Theragran M Tab) 1 tab DAILY PO 12/29/16 09:00 01/02/17 08:14 Sodium Chloride (NS Flush) 2 ml BID .XX 12/28/16 21:00 01/02/17 08:14 Acetaminophen (Tylenol) 650 mg Q6H PRN PO PAIN 1-10 AND/OR FEVER >101F 12/28/16 19:45 12/29/16 12:32 Famotidine (Pepcid Inj) 20 mg Q12HR IV PUSH 12/28/16 21:00 01/02/17 08:14 Docusate Sodium (Colace) 100 mg BID PO 12/28/16 21:00 01/02/17 08:14 Chlorhexidine Gluconate (Chlorhexidine 2% Cloth) 3 pack Taper DAILY@04 TOP 12/29/16 04:00 12/25/17 03:59 12/29/16 04:00 Apixaban (Eliquis) 10 mg Q12H PO 12/31/16 17:00 01/07/17 05:01 01/02/17 05:25 Objective Remarks GENERAL: Middle aged female sitting up in bed in [place]. SKIN: Warm and dry. HEAD: Normocephalic. EYES: No injection or drainage. NECK: Supple, trachea midline. CARDIOVASCULAR: Regular rate and rhythm RESPIRATORY: Breath sounds equal bilaterally. No accessory muscle use. GASTROINTESTINAL: Abdomen soft, non-tender, nondistended. EXTREMITIES: No cyanosis NEUROLOGICAL: awake and alert. normal speech. moving all extremities. Assessment/Plan Assessment 61 y/o female admitted for syncope, SOB and chest pain found to have a PE. Plan 1. continue Eliquis 2. clear for discharge 3. Follow up in clinic--fs faxed to npr Attending Statement The exam, history, and the medical decision-making described in the above note were completed with the assistance of the mid-level provider. I reviewed and agree with the findings presented. I attest that I had a [id number] encounter with the patient on the same day, and personally performed and documented my assessment and findings in the medical record. doing well without bleed or sob. Hopefully home soon on eliquis 10 bid for total 1 week then 5 po bid . Zahra Lyman January 02, 2017 09:31 Forrest Porter MD January 02, 2017 15:49
[2017-01-02 10:31] LABS: AUTOMATED NEUTROPHIL # 3.8 TH/MM3 (1.8-7.7); BASOPHIL % 0.8 % (0.0-2.0); EOSINOPHIL # 0.2 TH/MM3 (0-0.4); HEMATOCRIT 35.2 % (35.0-46.0); HEMO FLAGS DIFF FINAL; LYMPH % 24.6 % (9.0-44.0); LYMPHOCYTE # 1.5 TH/MM3 (1.0-4.8); MEAN CELL VOLUME 82.8 FL (80.0-100.0); MEAN CORPUSCULAR HEMOGLOBIN 26.9 PG (27.0-34.0); MEAN CORPUSCULAR HGB CONC 32.5 % (32.0-36.0); MONO % 9.7 % (0.0-8.0); NEUT % 61.9 % (16.0-70.0); PLATELET COUNT 205 TH/MM3 (150-450); RED BLOOD COUNT 4.25 MIL/MM3 (4.00-5.30); RED CELL DISTRIBUTION WIDTH 14.3 % (11.6-17.2); WHITE BLOOD COUNT 6.2 TH/MM3 (4.0-11.0)
[2017-01-02 10:56] LABS: BICARBONATE 26.9 MEQ/L (21.0-32.0); POTASSIUM 4.1 MEQ/L (3.5-5.1)
[2017-01-02 12:00] VITALS: BP 109/55; PULSE 97; RESP 16; TEMP 97.7; O2SAT 100
[2017-01-02 16:00] VITALS: BP 115/57; PULSE 90; RESP 16; TEMP 98.4; O2SAT 98
--- NOTE | 2017-01-02 16:52 | HHI.PR ---
Subjective Remarks No new complaints. Objective Vitals Vital Signs Date Time Temp Pulse Resp B/P Pulse Ox O2 Delivery O2 Flow Rate FiO2 01/02/17 12:00 97.7 97 16 109/55 100 01/02/17 10:59 Room Air 21 01/02/17 08:00 97.8 80 16 125/76 98 01/02/17 04:00 98.3 79 18 109/61 99 01/02/17 00:29 98.3 89 18 104/64 97 01/01/17 21:00 Room Air 01/01/17 20:00 98.5 84 18 109/55 99 01/01/17 20:00 84 01/01/17 01/01/17 01/02/17 15:00 23:00 07:00 Intake Total 720 ml 600 ml 400 ml Output Total 800 ml Balance 720 ml -200 ml 400 ml Intake Oral 720 ml 600 ml 400 ml Output Urine Total 800 ml # Voids 2 3 # Bowel Movements 1 1 0 Result Diagram: 01/02/17 1005 01/02/17 1005 Imaging Last Impressions Abdomen/Pelvis CT 12/31/16 0000 Signed Impressions: Service Date/Time: December 21:59 - CONCLUSION: Liver cyst. Otherwise unremarkable noncontrast CT appearance of the abdomen and pelvis. Santhosh Alejandro MD Chest X-Ray 12/29/16 1118 Signed Impressions: Service Date/Time: Thursday, December 29, 2016 11:31 - CONCLUSION: No acute disease. Left jugular central line with tip in the SVC and no pneumothorax. Delgado Gregory MD Head CT 12/29/16 0855 Signed Impressions: Service Date/Time: Thursday, December 29, 2016 09:38 - CONCLUSION: Mild sphenoid sinus disease. No acute intracranial findings. Saman Combs MD CT Angiography 12/28/16 1655 Signed Impressions: Service Date/Time: Wednesday, December 28, 2016 18:42 - CONCLUSION: Extensive bilateral pulmonary embolism. Santhosh Alejandro MD Objective Remarks General: NAD, AAOx3 Chest: CTA Cardiac: Regular Abd: +BS, soft ND/NT Ext: No edema A/P Problem List: (1) Pulmonary embolism Status: Acute Plan: - unprovoked - CTA (12/28/16) --> extensive b/l PE - Echocardiogram showed large RA thrombus. - Pt received tPA & IV Heparin - No arrhythmia noted. - comgmt with Hematology. - Hypercoag w/u has been initiated and pt will f/u with Dr. Rodriguez outpt. - Pt has been transitioned to PO Eliqis 10mg po BID until 01/07, then decrease to 5mg po BID - Pt is comfortable on RA - CT abd/pelvis (12/31) --> Liver cyst. Otherwise unremarkable noncontrast CT appearance of the abdomen and pelvis. - Repeat echocardiogram to reevaluate atrial thrombus pending. - case d/w Dr. Felix (12/31/16) - depending on results of repeat Echocardiogram, will decide if Lexiscan inpt or outpt - Anticipate d/c to home once cleared by Cardiology 01/02/17 - awaiting results of repeat echocardiogram - possible lexiscan prior to discharge - anticipate d/c to home in 2-3 days. - per pt, she was told that [facility] would NOT cover Eliquis will need to review this with [facility] 01/04 - repeat echocardiogram (12/31/16) - reviewed with Dr. 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 Contreras - consider THADDEUS - D/w Dr. Felix 01/04 Assessment and Plan Patient examined. Assessment and plan formulated with Agatha Taylor PA-C. I agree with the above. Problem Qualifiers (1) Pulmonary embolism: Qualified Code: I26.09 - Other acute pulmonary embolism with acute cor pulmonale Aris Valentine DO January 02, 2017 16:52
[2017-01-02 20:00] VITALS: BP 116/65; PULSE 92; PULSE 96; RESP 18; TEMP 98.4; O2SAT 100
[2017-01-03] VITALS (7 sets, daily range): BP systolic 97–120; BP diastolic 57–71; PULSE 77–96; RESP 18–20; TEMP 97.9–99.1; O2SAT 95–98
[2017-01-03] MEDS: CHLORHEXIDINE GLUCONATE 2 % 1 PACK (2 CLOTHS) TOP SCH (04:00)
[2017-01-03] MEDS: APIXABAN 5 MG TABLET PO SCH ×2 (05:07→16:53)
[2017-01-03] MEDS: MULTIVITAMINS/MINERALS THERAPEUTIC TAB PO SCH (09:00)
[2017-01-03] MEDS: SODIUM CHLORIDE 0.9% FLUSH 10 ML FLUSH SCH ×2 (09:00→20:40)
[2017-01-03] MEDS: FAMOTIDINE 20 MG/2 ML VIAL IV PUSH SCH ×2 (09:23→20:36)
[2017-01-03] MEDS: DOCUSATE SODIUM 100 MG CAP PO SCH ×2 (09:23→20:36)
--- NOTE | 2017-01-03 15:22 | HHI.PR ---
Subjective Remarks pt c/o tachycardia when she gets up to the bathroom. Did not see this on the saved telemetry. Objective Vitals Vital Signs Date Time Temp Pulse Resp B/P Pulse Ox O2 Delivery O2 Flow Rate FiO2 01/03/17 12:00 98.3 82 20 116/64 98 01/03/17 09:30 Room Air 01/03/17 08:51 92 01/03/17 08:00 98.5 94 20 97/57 98 01/03/17 05:47 97.9 86 18 97/64 98 01/03/17 04:00 Room Air 01/03/17 00:00 Room Air 01/03/17 00:00 99.1 93 18 106/57 95 01/02/17 21:00 Room Air 01/02/17 20:00 98.4 96 18 116/65 100 01/02/17 20:00 92 01/02/17 16:00 98.4 90 16 115/57 98 01/02/17 01/02/17 01/03/17 15:00 23:00 07:00 Intake Total 600 ml Output Total 250 ml Balance 600 ml -250 ml Intake Oral 600 ml Output Urine Total 250 ml # Voids 3 # Bowel Movements 1 0 0 Result Diagram: 01/02/17 1005 01/02/17 1005 Imaging Last Impressions Abdomen/Pelvis CT 12/31/16 0000 Signed Impressions: Service Date/Time: December 21:59 - CONCLUSION: Liver cyst. Otherwise unremarkable noncontrast CT appearance of the abdomen and pelvis. Santhosh Alejandro MD Chest X-Ray 12/29/16 1118 Signed Impressions: Service Date/Time: Thursday, December 29, 2016 11:31 - CONCLUSION: No acute disease. Left jugular central line with tip in the SVC and no pneumothorax. Delgado Gregory MD Head CT 12/29/16 0855 Signed Impressions: Service Date/Time: Thursday, December 29, 2016 09:38 - CONCLUSION: Mild sphenoid sinus disease. No acute intracranial findings. Saman Combs MD CT Angiography 12/28/16 1655 Signed Impressions: Service Date/Time: Wednesday, December 28, 2016 18:42 - CONCLUSION: Extensive bilateral pulmonary embolism. Santhosh Alejandro MD Objective Remarks General: NAD, AAOx3 Chest: CTA Cardiac: Regular Abd: +BS, soft ND/NT Ext: No edema A/P Problem List: (1) Pulmonary embolism Status: Acute Plan: - unprovoked - CTA (12/28/16) --> extensive b/l PE - Echocardiogram showed large RA thrombus. - Pt received tPA & IV Heparin - No arrhythmia noted. - comgmt with Hematology. - Hypercoag w/u has been initiated and pt will f/u with Dr. Rodriguez outpt. - Pt has been transitioned to PO Eliqis 10mg po BID until 01/07, then decrease to 5mg po BID - Pt is comfortable on RA - CT abd/pelvis (12/31) --> Liver cyst. Otherwise unremarkable noncontrast CT appearance of the abdomen and pelvis. - Repeat echocardiogram to reevaluate atrial thrombus pending. - case d/w Dr. Felix (12/31/16) - depending on results of repeat Echocardiogram, will decide if Lexiscan inpt or outpt - repeat echocardiogram (12/31/16) - reviewed with Dr. 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 Contreras - consider THADDEUS - D/w Dr. Felix 01/04 - possible lexiscan prior to discharge - per pt, she was told that [facility] would NOT cover Eliquis will need to review this with [facility] 01/04 - anticipate d/c to home in 1-2 days Problem Qualifiers (1) Pulmonary embolism: Qualified Code: I26.09 - Other acute pulmonary embolism with acute cor pulmonale Aris Valentine DO January 03, 2017 15:22
[2017-01-04] VITALS (7 sets, daily range): BP systolic 106–127; BP diastolic 56–69; PULSE 86–97; RESP 20; TEMP 97.9–98.4; O2SAT 96–100
[2017-01-04] MEDS: CHLORHEXIDINE GLUCONATE 2 % 1 PACK (2 CLOTHS) TOP SCH (04:00)
[2017-01-04] MEDS: APIXABAN 5 MG TABLET PO SCH ×2 (05:39→17:05)
--- NOTE | 2017-01-04 08:30 | PD.CARD.PN ---
Subjective Subjective Remarks no complaints this am sitting in chair Objective Medications Active Medications Apixaban (Eliquis) 5 mg BID PO; Start 01/07/17 at 21:00 Vital Signs / I&O Vital Signs Date Time Temp Pulse Resp B/P Pulse Ox O2 Delivery O2 Flow Rate FiO2 01/04/17 04:00 Room Air 01/04/17 04:00 97.9 90 20 112/57 100 01/04/17 00:00 98.4 97 20 113/58 96 01/04/17 00:00 Room Air 01/03/17 20:00 Room Air 01/03/17 20:00 77 01/03/17 20:00 97.9 91 20 118/71 98 01/03/17 16:00 98.2 96 20 120/58 97 01/03/17 12:00 98.3 82 20 116/64 98 01/03/17 09:30 Room Air 01/03/17 08:51 92 I/O 01/03/17 01/03/17 01/03/17 01/04/17 01/04/17 01/04/17 07:00 15:00 23:00 07:00 15:00 23:00 Intake Total 720 ml 400 ml Balance 720 ml 400 ml Intake Oral 720 ml 400 ml # Voids 3 3 2 2 # Bowel Movements 0 0 0 Physical Exam GENERAL: SKIN: Warm and dry. HEAD: Normocephalic. EYES: No scleral icterus. No injection or drainage. NECK: Supple, trachea midline. No JVD or lymphadenopathy. CARDIOVASCULAR: Regular rate and rhythm without murmurs, gallops, or rubs. RESPIRATORY: Breath sounds equal bilaterally. No accessory muscle use. GASTROINTESTINAL: Abdomen soft, non-tender, nondistended. MUSCULOSKELETAL: No cyanosis, or edema. BACK: Nontender without obvious deformity. No CVA tenderness. Imaging Last Impressions Abdomen/Pelvis CT 12/31/16 0000 Signed Impressions: Service Date/Time: December 21:59 - CONCLUSION: Liver cyst. Otherwise unremarkable noncontrast CT appearance of the abdomen and pelvis. Santhosh Alejandro MD Chest X-Ray 12/29/16 1118 Signed Impressions: Service Date/Time: Thursday, December 29, 2016 11:31 - CONCLUSION: No acute disease. Left jugular central line with tip in the SVC and no pneumothorax. Delgado F. Tocci, MD Head CT 12/29/16 0858 Signed Impressions: Service Date/Time: Thursday, December 29, 2016 09:38 - CONCLUSION: Mild sphenoid sinus disease. No acute intracranial findings. Saman Combs MD CT Angiography 12/28/16 6747 Signed Impressions: Service Date/Time: Wednesday, December 28, 2016 18:42 - CONCLUSION: Extensive bilateral pulmonary embolism. Santhosh Alejandro MD Assessment and Plan Assessment and Plan pulmonary embolism - symptomatically improved. right atrial mass - initial echocardiogram appeared more consistent with thrombus. CT abd shows no involvement of IVC. thrombolysis given and repeat limited echocardiogram showed no significant change in appearance. Therefore, pedunculated intracardiac mass must also be considered, ie myxoma. Will proceed with THADDEUS tomorrow am. NPO p midnight. NSTEMI - hold off on SPECT. if + intracardiac mass, may need surgical consultation & LHC. if not mass, then anticoagulation and SPECT. Surjit Felix MD January 04, 2017 08:30
[2017-01-04] MEDS: DOCUSATE SODIUM 100 MG CAP PO SCH ×2 (09:27→21:34)
[2017-01-04] MEDS: MULTIVITAMINS/MINERALS THERAPEUTIC TAB PO SCH (09:27)
[2017-01-04] MEDS: FAMOTIDINE 20 MG/2 ML VIAL IV PUSH SCH ×2 (09:27→21:34)
[2017-01-04] MEDS: SODIUM CHLORIDE 0.9% FLUSH 10 ML FLUSH SCH ×2 (09:31→21:34)
--- NOTE | 2017-01-04 10:54 | PD.ONC.PN ---
Subjective Subjective Remarks Afebrile overnight. Patient resting comfortably without complaint. She is to go for THADDEUS tomorrow for possible myxoma. Denies bleeding, light-headedness or chest pain. Objective Data Date Time Temp Pulse Resp B/P Pulse Ox O2 Delivery O2 Flow Rate FiO2 01/04/17 08:00 98.2 89 20 112/65 100 01/04/17 04:00 Room Air 01/04/17 04:00 97.9 90 20 112/57 100 01/04/17 00:00 98.4 97 20 113/58 96 01/04/17 00:00 Room Air 01/03/17 20:00 Room Air 01/03/17 20:00 77 01/03/17 20:00 97.9 91 20 118/71 98 01/03/17 16:00 98.2 96 20 120/58 97 01/03/17 12:00 98.3 82 20 116/64 98 Result Diagram: 01/02/17 1005 01/02/17 1005 Administered Medications Medications (Trade) Dose Ordered Sig/Demetrius Route PRN Reason Start Time Stop Time Status Last Admin Dose Admin Multivitamins/ Minerals Therapeutic (Theragran M Tab) 1 tab DAILY PO 12/29/16 09:00 01/04/17 09:27 Sodium Chloride (NS Flush) 2 ml BID .XX 12/28/16 21:00 01/04/17 09:31 Acetaminophen (Tylenol) 650 mg Q6H PRN PO PAIN 1-10 AND/OR FEVER >101F 12/28/16 19:45 12/29/16 12:32 Famotidine (Pepcid Inj) 20 mg Q12HR IV PUSH 12/28/16 21:00 01/04/17 09:27 Docusate Sodium (Colace) 100 mg BID PO 12/28/16 21:00 01/04/17 09:27 Chlorhexidine Gluconate (Chlorhexidine 2% Cloth) Taper DAILY@04 TOP 12/29/16 04:00 12/25/17 03:59 12/29/16 04:00 Apixaban (Eliquis) 10 mg Q12H PO 12/31/16 17:00 01/07/17 05:01 01/04/17 05:39 Objective Remarks GENERAL: Pleasant elderly female, sitting up in chair next to bed in nad. SKIN: Warm and dry. HEAD: Normocephalic. EYES: No injection or drainage. NECK: Supple, trachea midline. CARDIOVASCULAR: Regular rate and rhythm RESPIRATORY: Breath sounds equal bilaterally. No accessory muscle use. GASTROINTESTINAL: Abdomen soft, non-tender, nondistended. EXTREMITIES: No cyanosis NEUROLOGICAL: No obvious focal deficit. Awake, alert, and oriented x3. Assessment/Plan Problem List: (1) Pulmonary embolism Status: Acute Plan: 01/02: continue Eliquis. THADDEUS tomorrow 12/31/16: Transition from heparin to Eliquis tonight. Pt should take 10mg po BID for 7 days followed by 5mg po BID. Discussed with Dr Alvarado. 12/30/16: Continue heparin gt. Monitor for bleeding. Await hypercoagulable workup. (2) Cardiac mass Status: Acute Plan: --?right atrial mass, myxoma vs thrombus, s/p tpa w/out resolution of mass --THADDEUS scheduled for 01/05. --if + cardiac mass, will likely need CTS consult --cardiology following. Assessment 61 y/o female admitted for syncope, SOB and chest pain found to have a PE. Attending Statement Denies any CP or SOB. Schedule for THADDEUS tomorrow mass vs thrombus. continue eliquis. The exam, history, and the medical decision-making described in the above note were completed with the assistance of the mid-level provider. I reviewed and agree with the findings presented. I attest that I had a [id number] encounter with the patient on the same day, and personally performed and documented my assessment and findings in the medical record. Problem Qualifiers (1) Pulmonary embolism: Qualified Code: I26.09 - Other acute pulmonary embolism with acute cor pulmonale Zahra Lyman January 04, 2017 10:54 Russell Rodriguez MD January 04, 2017 23:16
--- NOTE | 2017-01-04 12:53 | HHI.PR ---
Subjective Remarks doing ok. no new problems Objective Vitals heart reg lung cta abd s/nt ext no edema Vital Signs Date Time Temp Pulse Resp B/P Pulse Ox O2 Delivery O2 Flow Rate FiO2 01/04/17 12:00 98.3 86 20 108/56 98 01/04/17 09:35 Room Air 01/04/17 08:00 98.2 89 20 112/65 100 01/04/17 04:00 Room Air 01/04/17 04:00 97.9 90 20 112/57 100 01/04/17 00:00 98.4 97 20 113/58 96 01/04/17 00:00 Room Air 01/03/17 20:00 Room Air 01/03/17 20:00 77 01/03/17 20:00 97.9 91 20 118/71 98 01/03/17 16:00 98.2 96 20 120/58 97 01/03/17 01/03/17 01/04/17 15:00 23:00 07:00 Intake Total 720 ml 400 ml Balance 720 ml 400 ml Intake Oral 720 ml 400 ml # Voids 3 2 2 # Bowel Movements 0 0 Result Diagram: 01/02/17 1005 01/02/17 1005 Imaging Last Impressions Abdomen/Pelvis CT 12/31/16 0000 Signed Impressions: Service Date/Time: December 21:59 - CONCLUSION: Liver cyst. Otherwise unremarkable noncontrast CT appearance of the abdomen and pelvis. Santhosh Alejandro MD Chest X-Ray 12/29/16 1118 Signed Impressions: Service Date/Time: Thursday, December 29, 2016 11:31 - CONCLUSION: No acute disease. Left jugular central line with tip in the SVC and no pneumothorax. Delgado Gregory MD Head CT 12/29/16 0855 Signed Impressions: Service Date/Time: Thursday, December 29, 2016 09:38 - CONCLUSION: Mild sphenoid sinus disease. No acute intracranial findings. Smaan Combs MD CT Angiography 12/28/16 1655 Signed Impressions: Service Date/Time: Wednesday, December 28, 2016 18:42 - CONCLUSION: Extensive bilateral pulmonary embolism. Santhosh Alejandro MD A/P Problem List: (1) Pulmonary embolism Status: Acute Plan: - unprovoked - CTA (12/28/16) --> extensive b/l PE - Echocardiogram showed large RA thrombus. - Pt received tPA & IV Heparin - No arrhythmia noted. - comgmt with Hematology. - Hypercoag w/u has been initiated and pt will f/u with Dr. Jennifer camara. - Pt has been transitioned to PO Eliqis 10mg po BID until 01/07, then decrease to 5mg po BID - Pt is comfortable on RA - CT abd/pelvis (12/31) --> Liver cyst. Otherwise unremarkable noncontrast CT appearance of the abdomen and pelvis. - Repeat echocardiogram to reevaluate atrial thrombus - now concern for right atrial myxoma discussed with dr Felix...THADDEUS tomorrow. if negative for myxoma then lexiscan. if positive [facility]hc/cts likely Problem Qualifiers (1) Pulmonary embolism: Qualified Code: I26.09 - Other acute pulmonary embolism with acute cor pulmonale Forrest Peterson MD January 04, 2017 12:53
[2017-01-05] VITALS (9 sets, daily range): BP systolic 101–138; BP diastolic 50–90; PULSE 75–97; RESP 16–20; TEMP 97.8–98.3; O2SAT 93–99
[2017-01-05] MEDS: CHLORHEXIDINE GLUCONATE 2 % 1 PACK (2 CLOTHS) TOP SCH (04:00)
[2017-01-05] MEDS: APIXABAN 5 MG TABLET PO SCH ×2 (06:26→16:39)
--- NOTE | 2017-01-05 07:34 | PD.CARD.PN ---
Subjective Subjective Remarks feeling well. Denies chest pain, SOB or palpitations (Mayra [place]) Objective Medications Current Medications Medications (Trade) Dose Ordered Sig/Demetrius Route Start Time Stop Time Status Last Admin (NS Flush) 2 ml UNSCH PRN IVF 12/28/16 17:00 (Theragran M Tab) 1 tab DAILY PO 12/29/16 09:00 01/04/17 09:27 (NS Flush) 2 ml UNSCH PRN .XX 12/28/16 19:45 (NS Flush) 2 ml BID .XX 12/28/16 21:00 01/04/17 21:34 (Tylenol) 650 mg Q6H PRN PO 12/28/16 19:45 12/29/16 12:32 (Morphine Inj) 2 mg Q2H PRN IV 12/28/16 19:45 (Pepcid Inj) 20 mg Q12HR IV PUSH 12/28/16 21:00 01/04/17 21:34 (Zofran Inj) 4 mg Q6H PRN IV 12/28/16 19:45 (Reglan Inj) 10 mg Q6H PRN IV 12/28/16 19:45 (Colace) 100 mg BID PO 12/28/16 21:00 01/04/17 21:34 (Ambien) 5 mg HS PRN PO 12/28/16 19:45 Miscellaneous Information 1 Q361D XX 12/28/16 19:45 (Chlorhexidine 2% Cloth) Taper DAILY@04 TOP 12/29/16 04:00 12/25/17 03:59 12/29/16 04:00 (Chlorhexidine 2% Cloth) 3 pack UNSCH PRN TOP 12/28/16 19:45 (Eliquis) 10 mg Q12H PO 12/31/16 17:00 01/07/17 05:01 01/05/17 06:26 (Eliquis) 5 mg BID PO 01/07/17 21:00 Vital Signs / I&O Vital Signs Date Time Temp Pulse Resp B/P Pulse Ox O2 Delivery O2 Flow Rate FiO2 01/05/17 04:00 98.1 86 20 112/62 99 01/05/17 00:00 98.3 89 18 101/50 95 01/04/17 20:00 98.2 86 20 106/59 98 01/04/17 16:00 98.1 88 20 127/69 99 01/04/17 12:00 98.3 86 20 108/56 98 01/04/17 09:35 Room Air 01/04/17 08:00 98.2 89 20 112/65 100 I/O 01/04/17 01/04/17 01/04/17 01/05/17 01/05/17 01/05/17 07:00 15:00 23:00 07:00 15:00 23:00 Intake Total 720 ml 240 ml 0 ml Balance 720 ml 240 ml 0 ml Intake Oral 720 ml 240 ml 0 ml # Voids 2 4 2 # Bowel Movements 0 1 0 Physical Exam EYES: Pupils equal and round. No scleral icterus. ENT: No nasal bleeding or discharge. Mucous membranes pink and moist. NECK: Trachea midline. No JVD. CARDIOVASCULAR: Regular rate and rhythm. No murmur RESPIRATORY: No accessory muscle use. Clear to auscultation. Breath sounds equal bilaterally. GASTROINTESTINAL: Abdomen soft, non-tender, nondistended. MUSCULOSKELETAL: Extremities without clubbing, cyanosis, or edema. No obvious deformities. NEUROLOGICAL: Awake and alert. No obvious cranial nerve deficits. Motor grossly within normal limits. Normal speech. PSYCHIATRIC: Appropriate mood and affect; insight and judgment normal. Laboratory Laboratory Tests Test 12/29/16 01/01/17 01/02/17 03:26 06:11 10:05 Thrombin Time sec Lupus Anticoagulant Lupus Anticoagulant PTT Screen 92 seconds Dil Steven Viper Venom Time 40 seconds Screen Dil Steven Viper Venom Time Mix Hexagonal Phase Confirmation NEGATIVE Protein C Activity 139 % Protein S Activity 110 % Anti-Thrombin III Activity 103 Hematology Comments Magnesium Level 2.4 MG/DL Total Bilirubin 0.3 MG/DL Aspartate Amino Transf 49 U/L (AST/SGOT) Alanine Aminotransferase 94 U/L (ALT/SGPT) Alkaline Phosphatase 93 U/L Total Protein 7.4 GM/DL Albumin 3.0 GM/DL White Blood Count 6.2 TH/MM3 Red Blood Count 4.25 MIL/MM3 Hemoglobin 11.4 GM/DL Hematocrit 35.2 % Mean Corpuscular Volume 82.8 FL Mean Corpuscular Hemoglobin 26.9 PG Mean Corpuscular Hemoglobin 32.5 % Concent Red Cell Distribution Width 14.3 % Platelet Count 205 TH/MM3 Mean Platelet Volume 8.0 FL Neutrophils (%) (Auto) 61.9 % Lymphocytes (%) (Auto) 24.6 % Monocytes (%) (Auto) 9.7 % Eosinophils (%) (Auto) 3.0 % Basophils (%) (Auto) 0.8 % Neutrophils # (Auto) 3.8 TH/MM3 Lymphocytes # (Auto) 1.5 TH/MM3 Monocytes # (Auto) 0.6 TH/MM3 Eosinophils # (Auto) 0.2 TH/MM3 Basophils # (Auto) 0.0 TH/MM3 CBC Comment DIFF FINAL Differential Comment Sodium Level 140 MEQ/L Potassium Level 4.1 MEQ/L Chloride Level 106 MEQ/L Carbon Dioxide Level 26.9 MEQ/L Anion Gap 7 MEQ/L Blood Urea Nitrogen 13 MG/DL Creatinine 1.13 MG/DL Estimat Glomerular Filtration 59 ML/MIN Rate Random Glucose 107 MG/DL Calcium Level 9.5 MG/DL Imaging Last Impressions Abdomen/Pelvis CT 12/31/16 0000 Signed Impressions: Service Date/Time: December 21:59 - CONCLUSION: Liver cyst. Otherwise unremarkable noncontrast CT appearance of the abdomen and pelvis. Santhosh Alejandro MD Chest X-Ray 12/29/16 1118 Signed Impressions: Service Date/Time: Thursday, December 29, 2016 11:31 - CONCLUSION: No acute disease. Left jugular central line with tip in the SVC and no pneumothorax. Delgado Gregory MD Head CT 12/29/16 0855 Signed Impressions: Service Date/Time: Thursday, December 29, 2016 09:38 - CONCLUSION: Mild sphenoid sinus disease. No acute intracranial findings. Saman Combs MD CT Angiography 12/28/16 1655 Signed Impressions: Service Date/Time: Wednesday, December 28, 2016 18:42 - CONCLUSION: Extensive bilateral pulmonary embolism. Santhosh Alejandro MD (Mayra [place]) Assessment and Plan Problem List: (1) Pulmonary embolism (2) Cardiac mass Assessment and Plan pulmonary embolism- symptomatically doing well, s/p tPA without resolution; continues on Eliquis R atrial mass- rule out myxoma; THADDEUS planned for this a.m. NSTEMI- if +intracardiac mass may need surgical consult and LHC if no mass then cont anticoagulation and SPECT (Mayra [place] ) Assessment and Plan + pedunculated mass in right atrium will need CT surgery. will need [facility]. (Surjit Felix MD) Problem Qualifiers (1) Pulmonary embolism: Qualified Code: I26.09 - Other acute pulmonary embolism with acute cor pulmonale Mayra [place] January 05, 2017 07:34 Surjit Felix MD January 05, 2017 11:32
[2017-01-05] MEDS: DOCUSATE SODIUM 100 MG CAP PO SCH ×2 (08:54→21:50)
[2017-01-05] MEDS: FAMOTIDINE 20 MG/2 ML VIAL IV PUSH SCH ×2 (08:54→21:50)
[2017-01-05] MEDS: MULTIVITAMINS/MINERALS THERAPEUTIC TAB PO SCH (08:54)
[2017-01-05] MEDS: SODIUM CHLORIDE 0.9% FLUSH 10 ML FLUSH SCH ×2 (09:05→21:51)
[2017-01-05] MEDS ORDERED: PROPOFOL 200 MG/20 ML AMP IV ONE (10:38)
[2017-01-05] MEDS ORDERED: SODIUM CHLORID 0.9% 500 ML IV PRN (11:15)
[2017-01-05] MEDS ORDERED: INSULIN HUMAN REGULAR 1,000 UNITS/10 ML VIAL SQ PRN (11:15)
[2017-01-05] MEDS ORDERED: LACTATED RINGER'S 1000 ML IV PRN (11:15)
[2017-01-05] MEDS ORDERED: CHLORHEXIDINE GLUCONATE 2 % 1 PACK (2 CLOTHS) TOPICAL PRN (11:15)
[2017-01-05] MEDS ORDERED: POVIDONE IODINE 5% (ANTISEPSIS KIT) 4 APPLICATIONS EACH NARE PRN (11:15)
[2017-01-05] MEDS ORDERED: METOPROLOL TARTRATE 25 MG TAB PO PRN (11:15)
--- NOTE | 2017-01-05 11:49 | HHI.PR ---
Subjective Remarks no new complaints Objective Vitals heart reg lung cta abd s/nt ext no edema Vital Signs Date Time Temp Pulse Resp B/P Pulse Ox O2 Delivery O2 Flow Rate FiO2 01/05/17 04:00 Room Air 01/05/17 04:00 98.1 86 20 112/62 99 01/05/17 00:00 98.3 89 18 101/50 95 01/05/17 00:00 Room Air 01/04/17 20:29 97 01/04/17 20:00 98.2 86 20 106/59 98 01/04/17 20:00 Room Air 01/04/17 16:00 98.1 88 20 127/69 99 01/04/17 12:00 98.3 86 20 108/56 98 01/04/17 01/04/17 01/05/17 15:00 23:00 07:00 Intake Total 720 ml 240 ml 0 ml Balance 720 ml 240 ml 0 ml Intake Oral 720 ml 240 ml 0 ml # Voids 4 2 # Bowel Movements 1 0 Result Diagram: 01/02/17 1005 01/02/17 1005 Imaging Last Impressions Abdomen/Pelvis CT 12/31/16 0000 Signed Impressions: Service Date/Time: December 21:59 - CONCLUSION: Liver cyst. Otherwise unremarkable noncontrast CT appearance of the abdomen and pelvis. Santhosh Alejandro MD Chest X-Ray 12/29/16 1118 Signed Impressions: Service Date/Time: Thursday, December 29, 2016 11:31 - CONCLUSION: No acute disease. Left jugular central line with tip in the SVC and no pneumothorax. Delgado Gregory MD Head CT 12/29/16 0855 Signed Impressions: Service Date/Time: Thursday, December 29, 2016 09:38 - CONCLUSION: Mild sphenoid sinus disease. No acute intracranial findings. Saman Combs MD CT Angiography 12/28/16 1655 Signed Impressions: Service Date/Time: Wednesday, December 28, 2016 18:42 - CONCLUSION: Extensive bilateral pulmonary embolism. Santhosh Alejandro MD A/P Problem List: (1) Pulmonary embolism Status: Acute Plan: - CTA (12/28/16) --> extensive b/l PE - initial Echocardiogram showed large RA thrombus. - Pt received tPA & IV Heparin - No arrhythmia noted. - Hypercoag w/u has been initiated and pt will f/u with Dr. Jennifer berrypt. - Pt has been transitioned to PO Eliqis 10mg po BID until 01/07, then decrease to 5mg po BID - Pt is comfortable on RA - CT abd/pelvis (12/31) --> Liver cyst. Otherwise unremarkable noncontrast CT appearance of the abdomen and pelvis. 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 (2) Cardiac mass Status: Acute Plan: see above Problem Qualifiers (1) Pulmonary embolism: Qualified Code: I26.09 - Other acute pulmonary embolism with acute cor pulmonale Forrest Peterson MD January 05, 2017 11:49
--- NOTE | 2017-01-05 16:55 | PD.ONC.PN ---
Subjective Subjective Remarks Afebrile overnight. She is sitting up in chair talking on the phone. No complaints. No bleeding. Objective Data Date Time Temp Pulse Resp B/P Pulse Ox O2 Delivery O2 Flow Rate FiO2 01/05/17 16:00 98.0 91 20 125/75 98 01/05/17 12:00 98.3 83 20 138/90 93 01/05/17 09:10 Room Air 01/05/17 09:10 77 01/05/17 08:00 97.8 75 18 116/66 99 01/05/17 04:00 Room Air 01/05/17 04:00 98.1 86 20 112/62 99 01/05/17 00:00 98.3 89 18 101/50 95 01/05/17 00:00 Room Air 01/04/17 20:29 97 01/04/17 20:00 98.2 86 20 106/59 98 01/04/17 20:00 Room Air 01/05/17 01/05/17 01/05/17 07:00 15:00 23:00 Intake Total 0 ml Balance 0 ml Result Diagram: 01/02/17 1005 01/02/17 1005 Administered Medications Medications (Trade) Dose Ordered Sig/Demetrius Route PRN Reason Start Time Stop Time Status Last Admin Dose Admin Multivitamins/ Minerals Therapeutic (Theragran M Tab) 1 tab DAILY PO 12/29/16 09:00 01/05/17 08:54 Sodium Chloride (NS Flush) 2 ml BID .XX 12/28/16 21:00 01/05/17 09:05 Acetaminophen (Tylenol) 650 mg Q6H PRN PO PAIN 1-10 AND/OR FEVER >101F 12/28/16 19:45 12/29/16 12:32 Famotidine (Pepcid Inj) 20 mg Q12HR IV PUSH 12/28/16 21:00 01/05/17 08:54 Docusate Sodium (Colace) 100 mg BID PO 12/28/16 21:00 01/05/17 08:54 Chlorhexidine Gluconate (Chlorhexidine 2% Cloth) Taper DAILY@04 TOP 12/29/16 04:00 12/25/17 03:59 12/29/16 04:00 Apixaban (Eliquis) 10 mg Q12H PO 12/31/16 17:00 01/07/17 05:01 01/05/17 16:39 Objective Remarks GENERAL: Pleasant elderly female, sitting up in chair. SKIN: Warm and dry. HEAD: Normocephalic. EYES: No injection or drainage. NECK: Supple, trachea midline. CARDIOVASCULAR: Regular rate and rhythm RESPIRATORY: Breath sounds equal bilaterally. No accessory muscle use. GASTROINTESTINAL: Abdomen soft, non-tender, nondistended. EXTREMITIES: No cyanosis NEUROLOGICAL: No obvious focal deficit. Awake, alert, and oriented x3. Assessment/Plan Problem List: (1) Pulmonary embolism Status: Acute Plan: 01/05: THADDEUS today showed mass in R atrium. CT consulted. Tolerating Eliquis well. 01/02: continue Eliquis. THADDEUS tomorrow 12/31/16: Transition from heparin to Eliquis tonight. Pt should take 10mg po BID for 7 days followed by 5mg po BID. Discussed with Dr Alvarado. 12/30/16: Continue heparin gt. Monitor for bleeding. Await hypercoagulable workup. (2) Cardiac mass Status: Acute Plan: --?right atrial mass, myxoma vs thrombus, s/p tpa w/out resolution of mass -- CTS consulted --cardiology following. Assessment 61 y/o female admitted for syncope, SOB and chest pain found to have a PE. Attending Statement offer no new c/o THADDEUS = Right atrial mass. Await CT surg input. Continue eliquis. willl follow. The exam, history, and the medical decision-making described in the above note were completed with the assistance of the mid-level provider. I reviewed and agree with the findings presented. I attest that I had a [id number] encounter with the patient on the same day, and personally performed and documented my assessment and findings in the medical record. Problem Qualifiers (1) Pulmonary embolism: Qualified Code: I26.09 - Other acute pulmonary embolism with acute cor pulmonale Celestina Mckeon January 05, 2017 16:54 Russell Rodriguez MD January 05, 2017 23:09
[2017-01-06] MEDS: CHLORHEXIDINE GLUCONATE 2 % 1 PACK (2 CLOTHS) TOP SCH (03:47)
[2017-01-06 04:55] VITALS: BP 96/52; PULSE 87; RESP 16; TEMP 98.3; O2SAT 99
[2017-01-06] MEDS: APIXABAN 5 MG TABLET PO SCH (05:38)
--- NOTE | 2017-01-06 07:30 | PD.CARD.PN ---
Subjective Subjective Remarks feeling well. Denies chest pain, SOB or palpitations (Mayra Vail) Objective Medications Current Medications Medications (Trade) Dose Ordered Sig/Demetrius Route Start Time Stop Time Status Last Admin (NS Flush) 2 ml UNSCH PRN IVF 12/28/16 17:00 (Theragran M Tab) 1 tab DAILY PO 12/29/16 09:00 01/05/17 08:54 (NS Flush) 2 ml UNSCH PRN .XX 12/28/16 19:45 (NS Flush) 2 ml BID .XX 12/28/16 21:00 01/05/17 21:51 (Tylenol) 650 mg Q6H PRN PO 12/28/16 19:45 12/29/16 12:32 (Morphine Inj) 2 mg Q2H PRN IV 12/28/16 19:45 (Pepcid Inj) 20 mg Q12HR IV PUSH 12/28/16 21:00 01/05/17 21:50 (Zofran Inj) 4 mg Q6H PRN IV 12/28/16 19:45 (Reglan Inj) 10 mg Q6H PRN IV 12/28/16 19:45 (Colace) 100 mg BID PO 12/28/16 21:00 01/05/17 21:50 (Ambien) 5 mg HS PRN PO 12/28/16 19:45 Miscellaneous Information 1 [id number] XX 12/28/16 19:45 (Chlorhexidine 2% Cloth) Taper DAILY@04 TOP 12/29/16 04:00 12/25/17 03:59 12/29/16 04:00 (Chlorhexidine 2% Cloth) 3 pack UNSCH PRN TOP 12/28/16 19:45 (Eliquis) 10 mg Q12H PO 12/31/16 17:00 01/07/17 05:01 01/06/17 05:38 Apixaban 5 mg 5 mg BID PO 01/07/17 21:00 Lactated Ringer's 1,000 ml @ 30 mls/hr Q24H PRN IV 01/05/17 11:15 01/08/17 11:14 (NS 500 ml Inj) 500 ml @ 30 mls/hr [id number] PRN IV 01/05/17 11:15 01/08/17 11:14 Vital Signs / I&O Vital Signs Date Time Temp Pulse Resp B/P Pulse Ox O2 Delivery O2 Flow Rate FiO2 01/06/17 04:55 98.3 87 16 96/52 99 01/05/17 23:22 98.2 90 16 105/63 99 01/05/17 20:34 97.9 97 16 109/56 96 01/05/17 20:00 95 01/05/17 20:00 Room Air 01/05/17 16:00 98.0 91 20 125/75 98 01/05/17 12:00 98.3 83 20 138/90 93 01/05/17 09:10 Room Air 01/05/17 09:10 77 01/05/17 08:00 97.8 75 18 116/66 99 I/O 01/05/17 01/05/17 01/05/17 01/06/17 01/06/17 01/06/17 07:00 15:00 23:00 07:00 15:00 23:00 Intake Total 0 ml 360 ml 720 ml 0 ml Balance 0 ml 360 ml 720 ml 0 ml Intake Oral 0 ml 360 ml 720 ml 0 ml # Voids 2 2 3 3 # Bowel Movements 0 0 1 0 Physical Exam EYES: Pupils equal and round. No scleral icterus. ENT: No nasal bleeding or discharge. Mucous membranes pink and moist. NECK: Trachea midline. No JVD. CARDIOVASCULAR: Regular rate and rhythm. No murmur RESPIRATORY: No accessory muscle use. Clear to auscultation. Breath sounds equal bilaterally. GASTROINTESTINAL: Abdomen soft, non-tender, nondistended. MUSCULOSKELETAL: Extremities without clubbing, cyanosis, or edema. No obvious deformities. NEUROLOGICAL: Awake and alert. No obvious cranial nerve deficits. Motor grossly within normal limits. Normal speech. PSYCHIATRIC: Appropriate mood and affect; insight and judgment normal. (Mayra Vail) Assessment and Plan Problem List: (1) Pulmonary embolism (2) Cardiac mass Assessment and Plan pulmonary embolism- symptomatically doing well, s/p tPA without resolution; continues on Eliquis R atrial mass, pedunculated - seen on THADDEUS. CV consulted. NSTEMI- tele reviewed, no arrythmia. will need [facility] SBP running low (Mayra Vail) Assessment and Plan DC eliquis [facility] tomorrow am NPO p MN (Surjit Felix MD) Problem Qualifiers (1) Pulmonary embolism: Qualified Code: I26.09 - Other acute pulmonary embolism with acute cor pulmonale Mayra Vail January 06, 2017 07:30 Surjit Felix MD January 06, 2017 12:53
[2017-01-06 08:00] VITALS: BP 106/73; PULSE 96; RESP 18; TEMP 98.2; O2SAT 98
[2017-01-06] MEDS: DOCUSATE SODIUM 100 MG CAP PO SCH ×2 (09:07→21:30)
[2017-01-06] MEDS: MULTIVITAMINS/MINERALS THERAPEUTIC TAB PO SCH (09:07)
[2017-01-06] MEDS: FAMOTIDINE 20 MG/2 ML VIAL IV PUSH SCH ×2 (09:08→21:30)
[2017-01-06] MEDS: SODIUM CHLORIDE 0.9% FLUSH 10 ML FLUSH SCH (09:08)
--- NOTE | 2017-01-06 10:33 | PD.PN.STU ---
Subjective Remarks Patient is a 61 year old female who presented to ED 12/28 with extensive bilateral PE. Found to have right atrial mass. Scheduled for THADDEUS today. Doing well today. Some swelling in bilateral lower limbs which she says is improving. Reports becoming tachycardic with minimal exertion and increase in work of breathing. Denies SOB, CP, N/V, lightheadedness, or syncope. Objective Vitals GENERAL: pleasant woman who appears stated age, is alert/awake/oriented x3, does not appear to be in distress. SKIN: Focused skin assessment warm/dry. HEAD: Atraumatic. Normocephalic. EYES: Pupils equal and round. No scleral icterus. No injection or drainage. ENT: No nasal bleeding or discharge. Mucous membranes pink and moist. NECK: Trachea midline. No JVD. CARDIOVASCULAR: Regular rate and rhythm. No murmur appreciated. RESPIRATORY: No accessory muscle use. Clear to auscultation. Breath sounds equal bilaterally. GASTROINTESTINAL: Abdomen soft, non-tender, nondistended. No rebound tenderness or guarding. MUSCULOSKELETAL: Minimal bilateral lower extremity edema. NEUROLOGICAL: Awake and alert. No obvious cranial nerve deficits. Motor grossly within normal limits. Normal speech. PSYCHIATRIC: Appropriate mood and affect; insight and judgment normal. Vital Signs Date Time Temp Pulse Resp B/P Pulse Ox O2 Delivery O2 Flow Rate FiO2 01/06/17 08:00 98.2 96 18 106/73 98 01/06/17 04:55 98.3 87 16 96/52 99 01/05/17 23:22 98.2 90 16 105/63 99 01/05/17 20:34 97.9 97 16 109/56 96 01/05/17 20:00 95 01/05/17 20:00 Room Air 01/05/17 16:00 98.0 91 20 125/75 98 01/05/17 12:00 98.3 83 20 138/90 93 I/O 01/05/17 01/05/17 01/05/17 01/06/17 01/06/17 01/06/17 07:00 15:00 23:00 07:00 15:00 23:00 Intake Total 0 ml 360 ml 720 ml 0 ml Balance 0 ml 360 ml 720 ml 0 ml Intake Oral 0 ml 360 ml 720 ml 0 ml # Voids 2 2 3 3 # Bowel Movements 0 0 1 0 Result Diagram: 01/02/17 1005 01/02/17 1005 A/P Assessment and Plan (1) Pulmonary embolism Plan: Tolerating Eliquis. Denies SOB. Minimal bilateral leg edema which pt. reports is improving. (2) Cardiac mass Plan: Mass in right atrium. Potentially myxoma/source of PE. Scheduled for THADDEUS today. Cardiology following. Vadim Kingston M3 January 06, 2017 10:33
[2017-01-06] MEDS ORDERED: CHLORHEXIDINE GLUCONATE 4% SOLN 120 ML BTL TOPICAL SCH (11:45)
[2017-01-06] MEDS ORDERED: METOPROLOL TARTRATE 25 MG TAB PO SCH (11:45)
[2017-01-06] MEDS ORDERED: ceFAZolin 2 GM PREMIX 50 ML IV SCH (11:45)
[2017-01-06] MEDS ORDERED: CEFAZOLIN INJ 500 MG in SODIUM CHLORIDE 0.9% IRR BTL 500 ML IRRIGATION SCH (11:45)
[2017-01-06] MEDS ORDERED: INSULIN REGULAR (IV INFUSION) 100 UNITS in SODIUM CHLORIDE 0.9% INJ 100 ML IV SCH (11:45)
[2017-01-06] MEDS ORDERED: SODIUM CHLORIDE 0.9% FLUSH 10 ML FLUSH IV FLUSH PRN (11:45)
[2017-01-06 12:00] VITALS: BP 117/61; PULSE 86; RESP 18; TEMP 98.2; O2SAT 98
[2017-01-06] MEDS ORDERED: PILL SPLITTER OTHER PRN (12:00)
--- NOTE | 2017-01-06 12:28 | MB ---
cc: TRELL GUAMAN DATE OF CONSULTATION 01/06/2017 DATE OF 1955. HISTORY OF PRESENT ILLNESS A very pleasant 59-year-old female, only history of chronic back pain, no history of heart disease, who presented to the emergency department on 12/28/2016 with an episode of syncope. She was out in her yard watering, had a witnessed syncopal arrest. She woke up diaphoretic, short of breath. She was found to be tachycardiac. She was brought in by [facility], was found to also be slightly hypoxic. STAT CTA was done which showed extensive bilateral pulmonary embolism. Hemodynamically she was stable. She was initiated on heparin drip. Her troponin went from 0.04 to 9.79. Her echocardiogram showed some right ventricular and right atrial dilation with significant thrombotic burden throughout the entire right atrium, appeared to be highly mobile. She had no history of prior DVT or PE. No history of hypercoagulability. However, her daughter has hypercoagulability disorder and is on Xarelto. Her EKG also showed sinus tachycardia with right bundle-branch block, left posterior fascicular block and nonspecific ST depression associated with tachycardia which has since resolved. PAST MEDICAL HISTORY Chronic back pain. Hysterectomy. ALLERGIES She has no known allergies. MEDICATIONS She takes a multivitamin. REVIEW OF SYSTEMS Performed and negative unless otherwise noted in the initial HPI. 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 No tobacco or alcohol. FAMILY HISTORY Her daughter has a hypercoagulability state, is on Xarelto. PHYSICAL EXAMINATION VITAL SIGNS: Blood pressure 106/70, heart rate 96, temperature 98.2. GENERAL: The patient is awake, alert, in no acute distress. HEENT: Head is normocephalic, atraumatic. Pupils equal and reactive. Oral mucosa pink, moist. NECK: Supple. No JVD. HEART SOUNDS: S1, S2. Regular rate and rhythm. No rubs, murmurs, gallops. LUNGS: Clear to auscultation. No wheezes, rales or rhonchi. ABDOMEN: Soft, nontender. No masses or organomegaly. EXTREMITIES: +1-2 edema which is chronic for the patient. LABORATORY FINDINGS Hemoglobin 11, hematocrit of 35, white cell count of 6.2, platelet count of 205. Sodium 140, potassium 4.1, BUN of 13, creatinine 1.13. Troponin elevated to 9.79. IMPRESSION This is a very pleasant 61-year-old female with extensive bilateral pulmonary emboli who was given t-PA without resolution, started on Eliquis. Her last dose was early this morning. 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 Felix. Request for excision of the myxoma. PLAN Plan will be to hold the Eliquis at this time. Plan is for surgery on Wednesday morning for median sternotomy, right atrial mass excision, possible coronary artery bypass grafting depending upon her results of her cardiac cath in the a.m. The procedures, alternatives and risks have been discussed with the patient. She is agreeable to proceed. Full workup is still pending. Dictated by: SIRISHA Felton MD BRIDGETTE Palmer/FLACA /11:35 AM /12:24 PM
[2017-01-06 16:00] VITALS: BP 107/68; PULSE 89; RESP 18; TEMP 98.2; O2SAT 97
--- NOTE | 2017-01-06 17:15 | HHI.PR ---
Subjective Remarks doing well. Objective Vitals heent neg heart reg lung cta abd /snt ext no edema Vital Signs Date Time Temp Pulse Resp B/P Pulse Ox O2 Delivery O2 Flow Rate FiO2 01/06/17 12:00 98.2 86 18 117/61 98 01/06/17 08:45 Room Air 01/06/17 08:00 98.2 96 18 106/73 98 01/06/17 04:55 98.3 87 16 96/52 99 01/05/17 23:22 98.2 90 16 105/63 99 01/05/17 20:34 97.9 97 16 109/56 96 01/05/17 20:00 95 01/05/17 20:00 Room Air 01/05/17 01/05/17 01/06/17 15:00 23:00 07:00 Intake Total 360 ml 720 ml 0 ml Balance 360 ml 720 ml 0 ml Intake Oral 360 ml 720 ml 0 ml # Voids 2 3 3 # Bowel Movements 0 1 0 Result Diagram: 01/02/17 1005 01/02/17 1005 Imaging Last Impressions Abdomen/Pelvis CT 12/31/16 0000 Signed Impressions: Service Date/Time: December 21:59 - CONCLUSION: Liver cyst. Otherwise unremarkable noncontrast CT appearance of the abdomen and pelvis. Santhosh Alejandro MD Chest X-Ray 12/29/16 1118 Signed Impressions: Service Date/Time: Thursday, December 29, 2016 11:31 - CONCLUSION: No acute disease. Left jugular central line with tip in the SVC and no pneumothorax. Delgado Gregory MD Head CT 12/29/16 0855 Signed Impressions: Service Date/Time: Thursday, December 29, 2016 09:38 - CONCLUSION: Mild sphenoid sinus disease. No acute intracranial findings. Saman Combs MD CT Angiography 12/28/16 1655 Signed Impressions: Service Date/Time: Wednesday, December 28, 2016 18:42 - CONCLUSION: Extensive bilateral pulmonary embolism. Santhosh Alejandro MD A/P Problem List: (1) Pulmonary embolism Status: Acute Plan: - CTA (12/28/16) --> extensive b/l PE - initial Echocardiogram showed large RA thrombus. - Pt received tPA & IV Heparin - No arrhythmia noted. - Hypercoag w/u has been initiated and pt will f/u with Dr. Jennifer berrypt. - Pt has been transitioned to PO Eliqis 10mg po BID until 01/07, then decrease to 5mg po BID - Pt is comfortable on RA - CT abd/pelvis (12/31) --> Liver cyst. Otherwise unremarkable noncontrast CT appearance of the abdomen and pelvis. 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 (2) Cardiac mass Status: Acute Plan: see above Problem Qualifiers (1) Pulmonary embolism: Qualified Code: I26.09 - Other acute pulmonary embolism with acute cor pulmonale Forrest Peterson MD January 06, 2017 17:14
--- NOTE | 2017-01-06 19:46 | PD.ONC.PN ---
Subjective Subjective Remarks Pt was seen earlier today and this note reflects that encounter. Pt sitting up in chair at bedside in no distress. She denies chest pain. Occasional SOB with exertion. Objective Data Date Time Temp Pulse Resp B/P Pulse Ox O2 Delivery O2 Flow Rate FiO2 01/06/17 16:00 98.2 89 18 107/68 97 01/06/17 12:00 98.2 86 18 117/61 98 01/06/17 08:45 Room Air 01/06/17 08:00 98.2 96 18 106/73 98 01/06/17 04:55 98.3 87 16 96/52 99 01/05/17 23:22 98.2 90 16 105/63 99 01/05/17 20:34 97.9 97 16 109/56 96 01/05/17 20:00 95 01/05/17 20:00 Room Air 01/06/17 01/06/17 01/06/17 07:00 15:00 23:00 Intake Total 0 ml 960 ml Balance 0 ml 960 ml Result Diagram: 01/02/17 1005 01/02/17 1005 Administered Medications Medications (Trade) Dose Ordered Sig/Demetrius Route PRN Reason Start Time Stop Time Status Last Admin Dose Admin Multivitamins/ Minerals Therapeutic (Theragran M Tab) 1 tab DAILY PO 12/29/16 09:00 01/06/17 09:07 Acetaminophen (Tylenol) 650 mg Q6H PRN PO PAIN 1-10 AND/OR FEVER >101F 12/28/16 19:45 12/29/16 12:32 Famotidine (Pepcid Inj) 20 mg Q12HR IV PUSH 12/28/16 21:00 01/06/17 09:08 Docusate Sodium (Colace) 100 mg BID PO 12/28/16 21:00 01/06/17 09:07 Chlorhexidine Gluconate (Chlorhexidine 2% Cloth) Taper DAILY@04 TOP 12/29/16 04:00 12/25/17 03:59 12/29/16 04:00 Objective Remarks GENERAL: Pleasant older female, sitting up in chair in no distress. SKIN: Warm and dry. HEAD: Normocephalic. EYES: No injection or drainage. NECK: Supple, trachea midline. CARDIOVASCULAR: Regular rate and rhythm RESPIRATORY: Breath sounds equal bilaterally. No accessory muscle use. GASTROINTESTINAL: Abdomen soft, non-tender, nondistended. EXTREMITIES: No cyanosis NEUROLOGICAL: No obvious focal deficit. Awake, alert, and oriented x3. Assessment/Plan Problem List: (1) Pulmonary embolism Status: Acute Plan: 01/06: Plan for sternotomy with mass excision on Wednesday. Eliquis on hold for procedure. 01/05: THADDEUS today showed mass in R atrium. CT consulted. Tolerating Eliquis well. 01/02: continue Eliquis. THADDEUS tomorrow 12/31/16: Transition from heparin to Eliquis tonight. Pt should take 10mg po BID for 7 days followed by 5mg po BID. Discussed with Dr Alvarado. 12/30/16: Continue heparin gt. Monitor for bleeding. Await hypercoagulable workup. (2) Cardiac mass Status: Acute Plan: --right atrial mass -- plan for sternotomy with mass excision on 01/08 per CTS. Assessment 61 y/o female admitted for syncope, SOB and chest pain found to have a PE. Attending Statement Concerned about heart surg. No SOB or CP CVS surg note reviewed. Eliquis on hold for surg Cath tomorrow Resection for atrial mass on wednesday. The exam, history, and the medical decision-making described in the above note were completed with the assistance of the mid-level provider. I reviewed and agree with the findings presented. I attest that I had a [id number] encounter with the patient on the same day, and personally performed and documented my assessment and findings in the medical record. Problem Qualifiers (1) Pulmonary embolism: Qualified Code: I26.09 - Other acute pulmonary embolism with acute cor pulmonale Cleestina Mckeon January 06, 2017 19:46 Russell Rodriguez MD January 06, 2017 21:36
[2017-01-06 20:00] VITALS: BP 121/76; PULSE 83; PULSE 88; RESP 18; TEMP 97.8; O2SAT 96
--- NOTE | 2017-01-06 20:55 | RADRPT ---
EXAM DATE/TIME: 01/06/2017 18:58 [facility] COMPARISON: No previous studies available for comparison. INDICATIONS : PreOp cardiac surgery. MEDICAL HISTORY : Syncope. Dyspnea. A-fib. Arthritis. Cervical dysplasia. Chronic back pain. Anticoagulant therapy, El iquis. SURGICAL HISTORY : Right knee surgery. Hysterectomy. Cardiac cath. ENCOUNTER: Initial ACUITY: 1 day PAIN SCORE: 0/10 LOCATION: Bilateral neck PEAK SYSTOLIC VELOCITIES (cm/sec): ICA/CCA RATIO: Right: 0.9 Left: 1.1 ICA: Right: 101 Left: 140 CCA: Right: 111 Left: 124 ECA: Right: 105 Left: 110 VERTEBRAL: Right: 60 antegrade Left: 63 antegrade Elevated flow velocities and ICA/CCA ratios have been found to correlate with increased degrees of vessel stenosis, calculated as percentage of diameter relative to a normal segment of distal ICA/CCA FINDINGS: RIGHT CAROTID: No significant stenosis is visualized. The waveforms are within normal limits. LEFT CAROTID: There is elevated velocities involving the left internal carotid artery. This may correspond to 50-70 % stenosis. CT angiography of the cervicobrachial arch and carotid arteries is recommended for furthe r evaluation if clinically indicated. VERTEBRAL ARTERIES: Antegrade flow is seen in both vertebral arteries. MISCELLANEOUS: None. CONCLUSION: 1. Elevated velocities on the left as above. CT angiography of the cervicobrachial arch and carotid a rteries is recommended for further evaluation if clinically indicated. Nic Faustin MD on January 06, 2017 at 20:52 Board Certified Radiologist. This report was verified electronically.
--- NOTE | 2017-01-06 20:56 | RADRPT ---
EXAM DATE/TIME: 01/06/2017 19:23 [facility] COMPARISON: No previous studies available for comparison. INDICATIONS : PreOp cardiac surgery. MEDICAL HISTORY : Syncope. Dyspnea. A-fib. Arthritis. Cervical dysplasia. Chronic back pain. Anticoagulant therapy, El iquis. SURGICAL HISTORY : Right knee surgery. Hysterectomy. Cardiac cath. ENCOUNTER: Initial ACUITY: 1 day PAIN SCORE: 0/10 LOCATION: Bilateral legs. TECHNIQUE: Venous ultrasound of the left and right leg was performed from the inguinal ligament to the proximal calf. Real-time, color Doppler and spectral tracing, compression and augmentation techniques were us ed. FINDINGS: RIGHT LEG: There is normal compressibility of the deep venous system from the inguinal region to the proximal ca lf. No echogenic clot is seen in the lumen of the common femoral, femoral, popliteal, and posterior tibial veins. There is a normal response of the venous system to proximal and distal augmentation an d respiration. LEFT LEG: There is thrombus involving the distal femoral, popliteal and peroneal vein. More proximally no throm bus is seen. CONCLUSION: 1. Thrombus on the left from the distal femoral vein into the calf. Nic Faustin MD on January 06, 2017 at 20:53 Board Certified Radiologist. This report was verified electronically.
--- NOTE | 2017-01-06 20:57 | RADRPT ---
EXAM DATE/TIME: 01/06/2017 19:30 [facility] COMPARISON: No previous studies available for comparison. INDICATIONS : PreOp cardiac surgery. MEDICAL HISTORY : Syncope. Dyspnea. A-fib. Arthritis. Cervical dysplasia. Chronic back pain. Anticoagulant therapy, El iquis. SURGICAL HISTORY : Right knee surgery. Hysterectomy. Cardiac cath. ENCOUNTER: Initial ACUITY: 1 day PAIN SCORE: 0/10 LOCATION: Bilateral legs. GREATER SAPHENOUS VEIN THIGH: PROXIMAL: Right 5 mm Left 5 mm MID: Right 6 mm Left 5 mm DISTAL: Right 5 mm Left 5 mm CALF: PROXIMAL: Right 3 mm Left 3 mm MID: Right 2 mm Left 2 mm DISTAL: Right 2 mm Left 2 mm FINDINGS: The venous system of the lower extremities are patent by color Doppler imaging. Measurements of the leg veins (in mm) are listed above. CONCLUSION: 1. Venous mapping as above Nic Faustin MD on January 06, 2017 at 20:55 Board Certified Radiologist. This report was verified electronically.
[2017-01-06] MEDS: SODIUM CHLORIDE 0.9% FLUSH 10 ML FLUSH IV FLUSH SCH (21:30)
[2017-01-07] VITALS (11 sets, daily range): BP systolic 109–159; BP diastolic 56–86; PULSE 72–141; RESP 16–18; TEMP 97.7–98.5; O2SAT 97–100
[2017-01-07 01:16] LABS: BLOOD, URINE TRACE (NEG); GLUCOSE,URINE NEG (NEG); KETONE, URINE NEG (NEG); NITRITE,URINE NEG (NEG); PH, URINE 5.5 (5.0-8.5); URINE COLOR LIGHT-YELLOW (YELLW/STRAW)
[2017-01-07 01:18] LABS: COMMENT (UR) CULT NOT INDICATED; CULTURE IF INDICATED CULT NOT INDICATED
[2017-01-07] MEDS: CHLORHEXIDINE GLUCONATE 2 % 1 PACK (2 CLOTHS) TOP SCH (03:20)
[2017-01-07 08:00] LABS: AUTOMATED NEUTROPHIL # 2.2 TH/MM3 (1.8-7.7); BASOPHIL % 0.8 % (0.0-2.0); EOSINOPHIL # 0.1 TH/MM3 (0-0.4); EOSINOPHIL % 3.1 % (0.0-4.0); HEMO FLAGS DIFF FINAL; LYMPH % 36.8 % (9.0-44.0); LYMPHOCYTE # 1.7 TH/MM3 (1.0-4.8); MEAN CELL VOLUME 84.3 FL (80.0-100.0); MEAN CORPUSCULAR HEMOGLOBIN 26.6 PG (27.0-34.0); MEAN CORPUSCULAR HGB CONC 31.6 % (32.0-36.0); MONO % 12.7 % (0.0-8.0); NEUT % 46.6 % (16.0-70.0); PLATELET COUNT 298 TH/MM3 (150-450); RED BLOOD COUNT 3.92 MIL/MM3 (4.00-5.30); RED CELL DISTRIBUTION WIDTH 14.6 % (11.6-17.2); WHITE BLOOD COUNT 4.7 TH/MM3 (4.0-11.0)
[2017-01-07] MEDS: DOCUSATE SODIUM 100 MG CAP PO SCH ×2 (09:00→19:46)
[2017-01-07] MEDS: FAMOTIDINE 20 MG/2 ML VIAL IV PUSH SCH ×2 (09:00→19:46)
[2017-01-07] MEDS: MULTIVITAMINS/MINERALS THERAPEUTIC TAB PO SCH (09:00)
[2017-01-07] MEDS: SODIUM CHLORIDE 0.9% FLUSH 10 ML FLUSH IV FLUSH SCH ×2 (09:00→19:46)
[2017-01-07] MEDS ORDERED: HEPARIN-NS/PF INJ 500 ML ONE (09:32)
[2017-01-07] MEDS ORDERED: MIDAZOLAM HCL 2 MG/2 ML VIAL ONE (09:33)
[2017-01-07] MEDS ORDERED: HEPARIN SODIUM - IV 10,000 UNITS/10 ML VIAL ONE (09:33)
[2017-01-07] MEDS ORDERED: NITROGLYCERIN INJ 5 ML ONE (09:33)
--- NOTE | 2017-01-07 10:21 | PD.PN.STU ---
Subjective Remarks Resting comfortably. No acute complaint today. Objective Vitals GENERAL: pleasant woman who appears stated age, is alert/awake/oriented x3, does not appear to be in distress. NECK: Trachea midline. No JVD. CARDIOVASCULAR: Regular rate and rhythm. No murmur appreciated. No JVD. RESPIRATORY: No accessory muscle use. Clear to auscultation. Breath sounds equal bilaterally. GASTROINTESTINAL: Abdomen soft, non-tender, nondistended. No rebound tenderness or guarding. MUSCULOSKELETAL: Minimal bilateral lower extremity edema. Vital Signs Date Time Temp Pulse Resp B/P Pulse Ox O2 Delivery O2 Flow Rate FiO2 01/07/17 07:49 98.2 72 18 109/65 97 01/07/17 04:00 97.7 79 18 123/61 98 01/07/17 00:00 97.8 80 18 111/56 99 01/06/17 20:00 97.8 88 18 121/76 96 01/06/17 20:00 Room Air 01/06/17 20:00 83 01/06/17 16:00 98.2 89 18 107/68 97 01/06/17 12:00 98.2 86 18 117/61 98 I/O 01/06/17 01/06/17 01/06/17 01/07/17 01/07/17 01/07/17 07:00 15:00 23:00 07:00 15:00 23:00 Intake Total 0 ml 960 ml Balance 0 ml 960 ml Intake Oral 0 ml 960 ml # Voids 3 3 # Bowel Movements 0 1 Result Diagram: 01/07/17 0730 A/P Assessment and Plan (1) Pulmonary embolism Plan: Dc'd Eliquis as she is getting heart cath today and removal of right atrial mass tomorrow. No calf tenderness. No SOB. (2) Cardiac mass Plan: Mass in right atrium. Potentially myxoma/source of PE. Heart cath today and surgery tomorrow for removal of mass. Vadim Kingston M3 January 07, 2017 10:21
--- NOTE | 2017-01-07 10:34 | PD.CARD.PN ---
Subjective Subjective Remarks no events Objective Medications Active Medications Apixaban (Eliquis) 5 mg BID PO; Start 01/07/17 at 21:00; Stop 01/07/17 at 21:00 ; Status DC Fentanyl Citrate (fentaNYL INJ) 100 mcg STK-MED ONCE .ROUTE; Start 01/07/17 at 09:33; Stop 01/07/17 at 09:34; Status DC Heparin Sodium (Porcine) 31542 units 10,000 units STK-MED ONCE .ROUTE; Start at 09:33; Stop 01/07/17 at 09:34; Status DC Heparin Sodium/ Sodium Chloride (Heparin-NS/Pf Inj) 500 ml @ As Directed STK- MED ONCE .ROUTE; Start 01/07/17 at 09:32; Stop 01/07/17 at 09:33; Status DC Midazolam HCl (Versed Inj) 2 mg STK-MED ONCE .ROUTE; Start 01/07/17 at 09:33; Stop 01/07/17 at 09:34; Status DC Miscellaneous 1 ea 1 ea UNSCH PRN OTHER; Start 01/06/17 at 12:00 Nitroglycerin (Nitroglycerin Inj) 5 ml @ As Directed STK-MED ONCE .ROUTE; Start 01/07/17 at 09:33; Stop 01/07/17 at 09:34; Status DC Sodium Chloride (NS Flush) 2 ml BID IV FLUSH Last administered on 01/06/17t 21: 30; Admin Dose 2 ML; Start 01/06/17 at 21:00 Sodium Chloride (NS Flush) 2 ml UNSCH PRN IV FLUSH; Start 01/06/17 at 11:45 Vital Signs / I&O Vital Signs Date Time Temp Pulse Resp B/P Pulse Ox O2 Delivery O2 Flow Rate FiO2 01/07/17 08:00 99 Room Air 01/07/17 07:49 98.2 72 18 109/65 97 01/07/17 04:00 97.7 79 18 123/61 98 01/07/17 00:00 97.8 80 18 111/56 99 01/06/17 20:00 97.8 88 18 121/76 96 01/06/17 20:00 Room Air 01/06/17 20:00 83 01/06/17 16:00 98.2 89 18 107/68 97 01/06/17 12:00 98.2 86 18 117/61 98 I/O 01/06/17 01/06/17 01/06/17 01/07/17 01/07/17 01/07/17 07:00 15:00 23:00 07:00 15:00 23:00 Intake Total 0 ml 960 ml Balance 0 ml 960 ml Intake Oral 0 ml 960 ml # Voids 3 3 # Bowel Movements 0 1 Physical Exam GENERAL: SKIN: Warm and dry. HEAD: Normocephalic. EYES: No scleral icterus. No injection or drainage. NECK: Supple, trachea midline. No JVD or lymphadenopathy. CARDIOVASCULAR: Regular rate and rhythm without murmurs, gallops, or rubs. RESPIRATORY: Breath sounds equal bilaterally. No accessory muscle use. GASTROINTESTINAL: Abdomen soft, non-tender, nondistended. MUSCULOSKELETAL: No cyanosis, or edema. BACK: Nontender without obvious deformity. No CVA tenderness. Laboratory Laboratory Tests Test 01/07/17 01/07/17 01/07/17 01:00 06:29 07:30 Urine Color LIGHT-YELLOW Urine Turbidity CLEAR Urine pH 5.5 Urine Specific [place] 1.006 Urine Protein NEG mg/dL Urine Glucose (UA) NEG mg/dL Urine Ketones NEG mg/dL Urine Occult Blood TRACE Urine Nitrite NEG Urine Bilirubin NEG Urine Urobilinogen LESS THAN 2.0 MG/DL Urine Leukocyte Esterase NEG Urine RBC LESS THAN 1 /hpf Urine WBC LESS THAN 1 /hpf Microscopic Urinalysis Comment CULT NOT INDICATED Blood Type AB POSITIVE Antibody Screen NEGATIVE Crossmatch Leukocyte-Reduced Red Blood Cells Blood Bank Comment White Blood Count 4.7 TH/MM3 Red Blood Count 3.92 MIL/MM3 Hemoglobin 10.4 GM/DL Hematocrit 33.0 % Mean Corpuscular Volume 84.3 FL Mean Corpuscular Hemoglobin 26.6 PG Mean Corpuscular Hemoglobin 31.6 % Concent Red Cell Distribution Width 14.6 % Platelet Count 298 TH/MM3 Mean Platelet Volume 7.5 FL Neutrophils (%) (Auto) 46.6 % Lymphocytes (%) (Auto) 36.8 % Monocytes (%) (Auto) 12.7 % Eosinophils (%) (Auto) 3.1 % Basophils (%) (Auto) 0.8 % Neutrophils # (Auto) 2.2 TH/MM3 Lymphocytes # (Auto) 1.7 TH/MM3 Monocytes # (Auto) 0.6 TH/MM3 Eosinophils # (Auto) 0.1 TH/MM3 Basophils # (Auto) 0.0 TH/MM3 CBC Comment DIFF FINAL Differential Comment Imaging Last Impressions Lower Extremity Ultrasound 01/06/17 0000 Signed Impressions: Service Date/Time: Friday, January 06, 2017 19:23 - CONCLUSION: 1. Thrombus on the left from the distal femoral vein into the calf. Nic Faustin MD Carotid Artery Ultrasound 01/06/17 0000 Signed Impressions: Service Date/Time: Friday, January 06, 2017 18:58 - CONCLUSION: 1. Elevated velocities on the left as above. CT angiography of the cervicobrachial arch and carotid arteries is recommended for further evaluation if clinically indicated. Nic Faustin MD Abdomen/Pelvis CT 12/31/16 0000 Signed Impressions: Service Date/Time: December 21:59 - CONCLUSION: Liver cyst. Otherwise unremarkable noncontrast CT appearance of the abdomen and pelvis. Santhosh Alejandro MD Chest X-Ray 12/29/16 1118 Signed Impressions: Service Date/Time: Thursday, December 29, 2016 11:31 - CONCLUSION: No acute disease. Left jugular central line with tip in the SVC and no pneumothorax. Delgado Gregory MD Head CT 12/29/16 0855 Signed Impressions: Service Date/Time: Thursday, December 29, 2016 09:38 - CONCLUSION: Mild sphenoid sinus disease. No acute intracranial findings. Saman Combs MD CT Angiography 12/28/16 1655 Signed Impressions: Service Date/Time: Wednesday, December 28, 2016 18:42 - CONCLUSION: Extensive bilateral pulmonary embolism. Santhosh Alejandro MD Assessment and Plan Problem List: (1) Pulmonary embolism (2) Cardiac mass Assessment and Plan right atrial mass pulmonary embolism LHC - normal coronary arteries Surgery with Dr. Lucio tomorrow will sign off call with further questions Problem Qualifiers (1) Pulmonary embolism: Qualified Code: I26.09 - Other acute pulmonary embolism with acute cor pulmonale Surjit Felix MD January 07, 2017 10:34
[2017-01-07] MEDS ORDERED: IOHEXOL 350 MG/ML 100 ML BTL (for Cath Lab) OTHER ONE (10:35)
--- NOTE | 2017-01-07 10:39 | CATHPROC ---
[employer] HIS Report Study Information Study Number Scheduled Start Study Start [id number] 01/07/2017 Jan 07 2017 9:46AM Referring Institution Admit Source Facility Department [address] [facility] - [employer] Physician and Clinical Staff Initial Surjit Pardo Forestry Instructor Matt Henriquez,RN Recorder Mendoza Alves,RT(R) Edouard Rahman,RT(R) Procedures Performed Procedure Location (Site) Vessel Name Coronary Angiograms LCA Left Coronary Coronary Angiograms RCA Right Coronary L Heart Cath Equipment Time Collateral Analyst Description Size Mfg Part Number Used/Scraped TRANSDUCER, TRUWAVE 09:50 BROWN [employer] [place] * [id number] Used W/STOCKCOCK [id number] *[id number] *[id number] 09:50 [employer] PACK, CCL CUSTOM * Used *[id number] 09:50 [employer] SUPPORT, ARTERIAL ADULT [id number] Used 09:50 [place] PACER PEN, SKIN DUAL W/ RULER * [id number] Used BAND, RADIAL COMPRESSION TR [id number] 10:31 Revision3 24CM Used SHORT 24 *[id number] SHEATH, FR6 RADIAL PRELUDE 09:50 Revision3 FR 6 [id number] Used EASE 11CM [id number] 09:50 Revision3 WIRE, EXCHANGE 260CM 3MMJ 260CM Used *[id number] 09:50 [employer]ED OMNIPAQUE, 350 MG, 100ML 100ML [id number] Used [id number] 09:50 [employer] BLANKET,WARM AIR CCL * Used *[id number] History: Allergies Allergy Reaction No Known Allergies History: Risk Factors Family History of Hypertension Dyslipidemia Previous [facility] Previous Heart Failure Premature CAD Yes Yes Yes No No Prior Valve Prior PCI Prior CABG Surgery No No No Cerebrovascular Peripheral Artery Chronic Lung On Dialysis Diabetes Disease Disease Disease No No No No No History: Stress Tests Stress or Imaging Studies Performed No History: Other Current Smoker No Labs Hgb (g/dl) Hct (%) WBC (l/cumm) Platelets (thousands) 12.00-18.00 37.00-55.00 4.80-10.80 140.00-450.00 10.4 33 4.7 298 Glucose (mg/dl) BUN (mg/dl) Creatinine (mg/dl) BUN:Creatinine (1:x) 60.00-110.00 8.00-20.00 0.10-9.00 10.00-20.00 107 13 1.1 11.8 Na (meq/l) K (meq/l) 138.00-146.00 3.80-5.10 140 4.1 INR (PTT:PT) 0.50-2.00 1 CPK-MB (ng/ML) 0.00-7.00 Not Drawn Medication Medication Total Dose (Bolus/Oral) Medication Total Dosage/Unit 1% XYLOCAINE 5 mL FENTANYL 100 mcg HEPARIN 3000 units NTG (IC) 400 mcg VERSED 2 mg Medications (Bolus/Oral) Medication Time Given Dosage/Unit Administered By Reason VERSED 01/07/2017 10:10:22 AM 1 mg Matt Henriquez 1 mg VERSED given in lab by Matt Henriquez RN in Left Antecubital via Peripheral IV. Ordered by Surjit Felix. FENTANYL 01/07/2017 10:11:33 AM 50 mcg Matt Henriquez 50 mcg FENTANYL given in lab by Matt Henriquez RN in Left Antecubital via Peripheral IV. Ordered by Surjit Jang. 1% XYLOCAINE 01/07/2017 10:13:05 AM 5 mL Matt Henriquez 5 mL 1% XYLOCAINE given in lab by Matt Henriquez RN in Right Radial via Subcutaneous. Ordered by Surjit Holden. NTG (IC) 01/07/2017 10:14:43 AM 200 mcg Surjit Felix 200 mcg NTG (IC) given in lab by Surjit Felix in Right Radial via Intra-arterial. Ordered by Surjit Felix. HEPARIN 01/07/2017 10:15:21 AM 3000 units Matt Henriquez 3000 units HEPARIN given in lab by Matt Henriquez RN in Left Antecubital via Peripheral IV. Ordered b Surjit Castillo. NTG (IC) 01/07/2017 10:23:30 AM 200 mcg Surjit Felix 200 mcg NTG (IC) given in lab by Surjit Felix via Intra-arterial. Ordered by Surjit Felix. VERSED 01/07/2017 10:24:25 AM 1 mg Matt Henriquez 1 mg VERSED given in lab by Matt Henriquez RN in Left Antecubital via Peripheral IV. Ordered by Surjit Felix. FENTANYL 01/07/2017 10:25:43 AM 50 mcg Matt Henriquez 50 mcg FENTANYL given in lab by Burfield, Matt, RN in Left Antecubital via Peripheral IV. Ordered by Sujrit Jang. Medication (Drip) Medication Time Given Dosage/Unit Concentration/Unit Diluent (ml) Solution IV Solutions 01/07/2017 9:53:59 AM 0 mL (IV) 500 NaCl .9 Patient arrived on IV Solutions given by Surjit Felix in Left Antecubital via Peripheral IV. Pump/D rip Flow = 20 ml/hr using NaCl .9. Ordered by Surjit Felix. Initial Case Assessment Cardiovascular HR Rhythm NIBP Chest Pain 70 sr 149/78 0 Edema Present Skin color Skin None Normal Warm Dry Circulatory - Right Pulses Dorsalis Pedis Femoral Radial 2 2 2 Scale (0,1,2,3,4,d) Scale (0,1,2,3,4,d) Neurological State Oriented to time-place- Alert Moves all extremities person Respiration - General Respiration Rate SpO2 (%) O2 (lpm) (B/min) 18 99 0 Final Case Assessment Cardiovascular HR Rhythm NIBP Chest Pain 85 sr 135/74 0 Edema Present Skin color Skin None Normal Warm Dry Circulatory - Right Pulses Dorsalis Pedis Femoral Radial 2 2 2 Scale (0,1,2,3,4,d) Scale (0,1,2,3,4,d) Neurological State Oriented to time-place- Alert Moves all extremities person Respiration - General Respiration Rate SpO2 (%) O2 (lpm) (B/min) 18 98 0 Chronological Log Time Study Chronological Log 9:46:25 Patient arrived via Bed. 9:46:26 Patient Name, D.O.B, / Armband Verified By R.N. 9:46:27 Consent signed by the physician and the patient and verified by the [employer] staff. 9:47:31 Positive Allens test. by Mendoza Alves. Dr. Felix aware of previous access issues. 9:50:11 Pre-op and post- op instructions given; patient acknowledges understanding of instructions. 9:50:16 Allens test performed on the right radial and ulnar artery. 9:50:20 Patient has been NPO for Less than 6Hrs. 9:50:21 Skin Breakdown- 9:50:22 Patient Warmer Placed on the Table. 9:50:30 A # 20 IV was noted in the Antecubital (left). Grade = 0 9:50:33 History and physical on the chart or being dictated. Assessment: Initial Case, HR=70 BPM, Rhythm=sr, QYLN=998/78 mmhg, Chest Pain=0, Edema=None, Col or=Normal, Skin = Warm, Dry 9:50:34 Right Pulses: Taiwo Ped=2, Femoral=2, Radial=2 Neurological: State=Alert, Ox3, IVAN Respiration: Resp=18 B/min, SpO2=99 %, O2=0 lpm Vitals capture started with the following parameters, Patient=Adult, Interval=5 min, Initial Pr vqviun=505 mmHg, 9:53:17 Deflation Rate=5 mmHg Patient arrived on IV Solutions given by Surjit Felix in Left Antecubital via Peripheral IV. Pump/Drip Flow = 20 9:53:59 ml/hr using NaCl .9. Ordered by Surjit Felix. 9:54:33 HR=48 bpm, FSJA=355/78 mmhg, SpO2=99.0 %, Resp=8 B/min, Johnston=2 9:58:54 Reference ECG taken 9:59:04 Right groin and right radial prepped with 2% chlorhexidine, and with a 3 min. waiting time. 9:59:05 HR=79 bpm, ITIU=862/73 mmhg, FpA8=690.0 %, Resp=18 B/min, Johnston=2 10:04:04 HR=76 bpm, XSGO=176/67 mmhg, KmW7=443.0 %, Resp=14 B/min, Johnston=2 10:05:43 Pressure channel 1 zero failed. 10:06:02 Pressure channel 1 zeroed. 10:08:59 HR=76 bpm, LIDL=655/80 mmhg, GiA2=922.0 %, Resp=23 B/min, Johnston=2 10:10:09 MD arrived. 10:10:22 1 mg VERSED given in lab by Matt Henriquez, RN in Left Antecubital via Peripheral IV. Ordere d by Surjit Fleix. 10:11:33 50 mcg FENTANYL given in lab by Matt Henriquez, RN in Left Antecubital via Peripheral IV. Or dered by Surjit Felix. Time Out. Correct patient, correct procedure,correct physician, ,power injector loaded with con trast with surgical team 10:12:13 present. Time Out Concurred by MD, individual staff and BRAN MIXER in procedure. Loaded by Matt pinzon rn, verified by Edouard Kenny. 10:12:54 Presedation re-assessment performed by R[employer] Tester RN. 10:12:56 Case Start 10:12:58 Verbal Stimulation=2 Physical Stimulation=2 Airway=2 Respiration=2 TOTAL=8. (0=absent, 1=li mited, 2=present) 10:13:05 5 mL 1% XYLOCAINE given in lab by Matt Henriquez RN in Right Radial via Subcutaneous. Order ed by Surjit Felix. 10:13:58 HR=83 bpm, ZPGX=814/83 mmhg, SpO2=99.0 %, Resp=18 B/min, Johnston=2 10:14:43 200 mcg NTG (IC) given in lab by Surjit Felix in Right Radial via Intra-arterial. Ordered by Surjit Felix. 10:15:21 3000 units HEPARIN given in lab by Matt Henriquez RN in Left Antecubital via Peripheral IV. Ordered by Surjit Felix. A JR 5.0 INFINITI CATHETER FR 6 was advanced over a wire. OMNIPAQUE, 350 MG, 100ML 100ML was us ed for 10:15:56 injections. Recorded Pressure: LV, HR=88, Condition=Condition 1 10:16:41 (Left Ventricle) LV 137/4/15 Recorded Pressure: LV, Ao, HR=83, Condition=Condition 1 10:16:45 (Left Ventricle) LV 137/3/14, (Aorta) Ao 121/40/93 10:17:11 The RCA was injected and visualized at various angles. OMNIPAQUE, 350 MG, 100ML 100ML used . After removing the current catheter a JL 3.5 GUIDE CATHETER FR 6 was advanced over a WIRE, EXC HANGE 260CM 10:17:35 3MMJ 260CM. 10:18:59 HR=84 bpm, VXVT=236/76 mmhg, SpO2=95.0 %, Resp=15 B/min, Johnston=2 Recorded Pressure: Ao, HR=84, Condition=Condition 1 10:19:20 (Aorta) Ao 123/68/94 After removing the current catheter a AL 1 INFINITI CATHETER FR 5 was advanced over a WIRE, EX CHANGE 260CM 10:23:17 3MMJ 260CM. 10:23:30 200 mcg NTG (IC) given in lab by Surjit Felix via Intra-arterial. Ordered by Khurram Felix. 10:24:02 HR=83 bpm, YBNI=234/75 mmhg, SpO2=97.0 %, Resp=15 B/min, Johnston=2 10:24:25 1 mg VERSED given in lab by Matt Henriquez, RN in Left Antecubital via Peripheral IV. Order ed by Surjit Felix. 10:25:00 The LCA was injected and visualized at various angles. OMNIPAQUE, 350 MG, 100ML 100ML use d. 10:25:43 50 mcg FENTANYL given in lab by Matt Henriquez, RN in Left Antecubital via Peripheral IV. O rdered by Surjit Felix. 10:26:23 Catheter was removed OTW. 10:27:11 Case End 10:29:01 HR=89 bpm, RTUM=563/74 mmhg, SpO2=92.0 %, Resp=21 B/min, Johnstno=2 Assessment: Final Case, HR=85 BPM, Rhythm=sr, GXFD=730/74 mmhg, Chest Pain=0, Edema=None, [place] r=Normal, Skin = Warm, Dry 10:30:15 Right Pulses: Taiwo Ped=2, Femoral=2, Radial=2 Neurological: State=Alert, Ox3, IVAN Respiration: Resp=18 B/min, SpO2=98 %, O2=0 lpm 10:30:42 Catheter(s) removed without difficulty Radial Compression Device Used. 13 mLs of air placed in BAND, RADIAL COMPRESSION TR SHORT 24 2 4CM. Affected 10:30:52 hand 99 % O2 saturation. 10:31:19 No case complications noted. 10:31:26 Cine recording checked. 10:31:29 Bedside Report will be given. 10:31:33 Contrast Scanned 10:31:50 A Left Heart Cath was performed. 10:34:07 Vitals capture stopped. End Study - Contrast Media Used In Study Contrast Total Opened (mL) Total Used (mL) Total Wasted (mL) Omnipaque 40 40 0 End Study - Maximum Contrast Load Max Contrast Load (mL) 490.9 End Study - Radiation Exposure Fluoro Time (minutes) 5.3 End Study - Patient Disposition Complications Transferred To Telemetry Bed
--- NOTE | 2017-01-07 10:52 | PD.ONC.PN ---
Subjective Subjective Remarks (seen at 9AM) Afebrile overnight. patient resting comfortably. She is NPO for procedure today. No bleeding. No overnight events. Objective Data Date Time Temp Pulse Resp B/P Pulse Ox O2 Delivery O2 Flow Rate FiO2 01/07/17 08:00 99 Room Air 01/07/17 07:49 98.2 72 18 109/65 97 01/07/17 04:00 97.7 79 18 123/61 98 01/07/17 00:00 97.8 80 18 111/56 99 01/06/17 20:00 97.8 88 18 121/76 96 01/06/17 20:00 Room Air 01/06/17 20:00 83 01/06/17 16:00 98.2 89 18 107/68 97 01/06/17 12:00 98.2 86 18 117/61 98 Result Diagram: 01/07/17 0730 Laboratory Results Laboratory Tests Test 01/07/17 01/07/17 01/07/17 01:00 06:29 07:30 Urine Color LIGHT-YELLOW Urine Turbidity CLEAR Urine pH 5.5 Urine Specific [place] 1.006 Urine Protein NEG mg/dL Urine Glucose (UA) NEG mg/dL Urine Ketones NEG mg/dL Urine Occult Blood TRACE Urine Nitrite NEG Urine Bilirubin NEG Urine Urobilinogen LESS THAN 2.0 MG/DL Urine Leukocyte Esterase NEG Urine RBC LESS THAN 1 /hpf Urine WBC LESS THAN 1 /hpf Microscopic Urinalysis Comment CULT NOT INDICATED Blood Type AB POSITIVE Antibody Screen NEGATIVE Crossmatch Leukocyte-Reduced Red Blood Cells Blood Bank Comment White Blood Count 4.7 TH/MM3 Red Blood Count 3.92 MIL/MM3 Hemoglobin 10.4 GM/DL Hematocrit 33.0 % Mean Corpuscular Volume 84.3 FL Mean Corpuscular Hemoglobin 26.6 PG Mean Corpuscular Hemoglobin 31.6 % Concent Red Cell Distribution Width 14.6 % Platelet Count 298 TH/MM3 Mean Platelet Volume 7.5 FL Neutrophils (%) (Auto) 46.6 % Lymphocytes (%) (Auto) 36.8 % Monocytes (%) (Auto) 12.7 % Eosinophils (%) (Auto) 3.1 % Basophils (%) (Auto) 0.8 % Neutrophils # (Auto) 2.2 TH/MM3 Lymphocytes # (Auto) 1.7 TH/MM3 Monocytes # (Auto) 0.6 TH/MM3 Eosinophils # (Auto) 0.1 TH/MM3 Basophils # (Auto) 0.0 TH/MM3 CBC Comment DIFF FINAL Differential Comment Administered Medications Medications (Trade) Dose Ordered Sig/Demetrius Route PRN Reason Start Time Stop Time Status Last Admin Dose Admin Multivitamins/ Minerals Therapeutic (Theragran M Tab) 1 tab DAILY PO 12/29/16 09:00 01/06/17 09:07 Acetaminophen (Tylenol) 650 mg Q6H PRN PO PAIN 1-10 AND/OR FEVER >101F 12/28/16 19:45 12/29/16 12:32 Famotidine (Pepcid Inj) 20 mg Q12HR IV PUSH 12/28/16 21:00 01/06/17 21:30 Docusate Sodium (Colace) 100 mg BID PO 12/28/16 21:00 01/06/17 21:30 Chlorhexidine Gluconate (Chlorhexidine 2% Cloth) Taper DAILY@04 TOP 12/29/16 04:00 12/25/17 03:59 12/29/16 04:00 Sodium Chloride (NS Flush) 2 ml BID IV FLUSH 01/06/17 21:00 01/06/17 21:30 Objective Remarks GENERAL: Pleasant elderly female, sitting upright in room SKIN: Warm and dry. HEAD: Normocephalic. EYES: No injection or drainage. NECK: Supple, trachea midline. CARDIOVASCULAR: Regular rate and rhythm RESPIRATORY: Breath sounds equal bilaterally. No accessory muscle use. GASTROINTESTINAL: Abdomen soft, non-tender, nondistended. EXTREMITIES: No cyanosis NEUROLOGICAL: No obvious focal deficit. Awake, alert, and oriented x3. Assessment/Plan Problem List: (1) Pulmonary embolism Status: Acute Plan: 01/07: hold Eliquis for procedure today. Sternotomy tomorrow 01/05: THADDEUS today showed mass in R atrium. CT consulted. Tolerating Eliquis well. 01/02: continue Eliquis. THADDEUS tomorrow 12/31/16: Transition from heparin to Eliquis tonight. Pt should take 10mg po BID for 7 days followed by 5mg po BID. Discussed with Dr Alvarado. 12/30/16: Continue heparin gt. Monitor for bleeding. Await hypercoagulable workup. (2) Cardiac mass Status: Acute Plan: --right atrial mass -- plan for sternotomy with mass excision on 01/08 per CTS. Assessment 61 y/o female admitted for syncope, SOB and chest pain found to have a PE. Attending Statement No New c/o S/P Cath = Normal coronaries Cardiac surg tomorrow to remove atrial mass. Resume Eliquis after surgery for PE. The exam, history, and the medical decision-making described in the above note were completed with the assistance of the mid-level provider. I reviewed and agree with the findings presented. I attest that I had a [id number] encounter with the patient on the same day, and personally performed and documented my assessment and findings in the medical record. Problem Qualifiers (1) Pulmonary embolism: Qualified Code: I26.09 - Other acute pulmonary embolism with acute cor pulmonale Zahra Lyman January 07, 2017 10:52 Russell Rodriguez MD January 07, 2017 22:25
--- NOTE | 2017-01-07 11:00 | MA ---
cc: ASHLEY VARGAS DATE 01/07/2017 INDICATION Preoperative heart cath for right atrial mass removal. PROCEDURE PERFORMED 1. Fluoroscopy with interpretation. 2. Left heart catheterization. 3. Coronary angiography. METHOD: The risks, benefits and alternatives were discussed with the patient. The patient understood and consented to the procedure. PROCEDURE The patient was taken to the Catheterization Lab and placed on the catheterization table. The right wrist was prepped and draped in sterile fashion. The right wrist was anesthetized with 2% lidocaine. The right radial artery was cannulated and a 6-Maltese, 7-cm sheath was placed without difficulty. LEFT HEART CATHETERIZATION Intraventricular hemodynamics measured at 121/3 mmHg. CORONARY ANGIOGRAPHY 1. Left main coronary is angiographically normal. 2. The left anterior descending coronary artery is large caliber size vessel, angiographically normal. 3. The left circumflex gives rise to an obtuse marginal branch, angiographically normal. 4. The right coronary is a dominant vessel that gives rise to a posterior descending branch. The right coronary is angiographically normal. CONCLUSIONS 1. Angiographically normal coronaries. 2. Normal left-sided filling pressures. PLAN The patient is planned for right atrial mass removal tomorrow with Dr. Lucio. MD SANTO Matson/FLACA /10:38 AM /10:45 AM
--- NOTE | 2017-01-07 15:56 | PD.CAR.PN ---
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 HEAD: Normocephalic. EYES: No scleral icterus. No injection or drainage. NECK: Supple, trachea midline. No JVD or lymphadenopathy. CARDIOVASCULAR: Regular rate and rhythm without murmurs, gallops, or rubs. RESPIRATORY: Breath sounds equal bilaterally. No accessory muscle use. GASTROINTESTINAL: Abdomen soft, non-tender, nondistended. MUSCULOSKELETAL: No cyanosis, or edema. BACK: Nontender without obvious deformity. No CVA tenderness. Vital Signs Date Time Temp Pulse Resp B/P Pulse Ox O2 Delivery O2 Flow Rate FiO2 01/07/17 11:39 100 01/07/17 09:00 76 01/07/17 08:00 99 Room Air 01/07/17 07:49 98.2 72 18 109/65 97 01/07/17 04:00 97.7 79 18 123/61 98 01/07/17 00:00 97.8 80 18 111/56 99 01/06/17 20:00 97.8 88 18 121/76 96 01/06/17 20:00 Room Air 01/06/17 20:00 83 01/06/17 16:00 98.2 89 18 107/68 97 Labs: Laboratory Tests Test 01/07/17 01/07/17 06:29 07:30 Blood Type AB POSITIVE Antibody Screen NEGATIVE Crossmatch Leukocyte-Reduced Red Blood Cells Blood Bank Comment White Blood Count 4.7 TH/MM3 (4.0-11.0) Red Blood Count 3.92 MIL/MM3 (4.00-5.30) Hemoglobin 10.4 GM/DL (11.6-15.3) Hematocrit 33.0 % (35.0-46.0) Mean Corpuscular Volume 84.3 FL (80.0-100.0) Mean Corpuscular Hemoglobin 26.6 PG (27.0-34.0) Mean Corpuscular Hemoglobin 31.6 % Concent (32.0-36.0) Red Cell Distribution Width 14.6 % (11.6-17.2) Platelet Count 298 TH/MM3 (150-450) Mean Platelet Volume 7.5 FL (7.0-11.0) Neutrophils (%) (Auto) 46.6 % (16.0-70.0) Lymphocytes (%) (Auto) 36.8 % (9.0-44.0) Monocytes (%) (Auto) 12.7 % (0.0-8.0) Eosinophils (%) (Auto) 3.1 % (0.0-4.0) Basophils (%) (Auto) 0.8 % (0.0-2.0) Neutrophils # (Auto) 2.2 TH/MM3 (1.8-7.7) Lymphocytes # (Auto) 1.7 TH/MM3 (1.0-4.8) Monocytes # (Auto) 0.6 TH/MM3 (0-0.9) Eosinophils # (Auto) 0.1 TH/MM3 (0-0.4) Basophils # (Auto) 0.0 TH/MM3 (0-0.2) CBC Comment DIFF FINAL Differential Comment Result Diagram: 01/07/17 0730 (1) Pulmonary embolism Plan: resume eliquis after surgery (2) Cardiac mass Plan: for excision atrial myexoma in am Problem Qualifiers (1) Pulmonary embolism: Qualified Code: I26.09 - Other acute pulmonary embolism with acute cor pulmonale Marychuy Campbell January 07, 2017 15:56
[2017-01-07] MEDS ORDERED: HEPARIN-D5W INJ 250 ML IV SCH (18:00)
[2017-01-07 18:53] LABS: MEAN CELL VOLUME 84.2 FL (80.0-100.0); MEAN CORPUSCULAR HEMOGLOBIN 26.5 PG (27.0-34.0); MEAN CORPUSCULAR HGB CONC 31.5 % (32.0-36.0); PLATELET COUNT 345 TH/MM3 (150-450); RED BLOOD COUNT 4.15 MIL/MM3 (4.00-5.30); RED CELL DISTRIBUTION WIDTH 14.6 % (11.6-17.2); REVIEW FLAG FINAL; WHITE BLOOD COUNT 5.1 TH/MM3 (4.0-11.0)
[2017-01-07 19:05] LABS: APTT (PATIENT) 23.1 SEC (24.3-30.1); INTERNATIONAL NORMALIZED RATIO 0.9 RATIO; PROTHROMBIN TIME - PATIENT 10.4 SEC (9.8-11.6)
[2017-01-07] MEDS ORDERED: APIXABAN 5 MG TABLET PO SCH (21:00)
--- NOTE | 2017-01-07 21:19 | HHI.PR ---
Subjective Remarks no new complaints Objective Vitals heart reg lung cta abd s/nt ext no edema Vital Signs Date Time Temp Pulse Resp B/P Pulse Ox O2 Delivery O2 Flow Rate FiO2 01/07/17 20:18 98.1 95 16 122/80 98 01/07/17 20:04 95 Room Air 01/07/17 18:00 89 01/07/17 18:00 98.5 89 18 159/86 100 01/07/17 11:39 100 01/07/17 09:00 76 01/07/17 08:00 99 Room Air 01/07/17 07:49 98.2 72 18 109/65 97 01/07/17 04:00 97.7 79 18 123/61 98 01/07/17 00:00 97.8 80 18 111/56 99 01/06/17 01/06/17 01/07/17 15:00 23:00 07:00 Intake Total 960 ml Balance 960 ml Intake Oral 960 ml # Voids 3 # Bowel Movements 1 Result Diagram: 01/07/17 1839 Imaging Last Impressions Abdomen/Pelvis CT 12/31/16 0000 Signed Impressions: Service Date/Time: December 21:59 - CONCLUSION: Liver cyst. Otherwise unremarkable noncontrast CT appearance of the abdomen and pelvis. Santhosh Alejandro MD Chest X-Ray 12/29/16 1118 Signed Impressions: Service Date/Time: Thursday, December 29, 2016 11:31 - CONCLUSION: No acute disease. Left jugular central line with tip in the SVC and no pneumothorax. Delgado Gregory MD Head CT 12/29/16 0855 Signed Impressions: Service Date/Time: Thursday, December 29, 2016 09:38 - CONCLUSION: Mild sphenoid sinus disease. No acute intracranial findings. Saman Combs MD CT Angiography 12/28/16 1655 Signed Impressions: Service Date/Time: Wednesday, December 28, 2016 18:42 - CONCLUSION: Extensive bilateral pulmonary embolism. Santhosh Alejandro MD A/P Problem List: (1) Pulmonary embolism Status: Acute Plan: - CTA (12/28/16) --> extensive b/l PE - initial Echocardiogram showed large RA thrombus. - Pt received tPA & IV Heparin - No arrhythmia noted. - Hypercoag w/u has been initiated and pt will f/u with Dr. Jennifer berrypt. - Pt has been transitioned to PO Eliqis 10mg po BID until 01/07, then decrease to 5mg po BID - Pt is comfortable on RA - CT abd/pelvis (12/31) --> Liver cyst. Otherwise unremarkable noncontrast CT appearance of the abdomen and pelvis. 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
[2017-01-07 22:43] LABS: HEMOGLOBIN A1a 2.1 %; HEMOGLOBIN A1b 1.8 %; HEMOGLOBIN Ao 83.6 %; HEMOGLOBIN LA1C 1.8 %; HEMOGLOBIN P3 3.8 %
[2017-01-07 23:17] LABS: APTT (PATIENT) 39.4 SEC (24.3-30.1)
[2017-01-08] VITALS (17 sets, daily range): BP systolic 88–116; BP diastolic 54–76; PULSE 57–118; RESP 12–18; TEMP 97.9–98.3; O2SAT 96–99
[2017-01-08] MEDS: CHLORHEXIDINE GLUCONATE 2 % 1 PACK (2 CLOTHS) TOP SCH (01:02)
[2017-01-08] MEDS ORDERED: MAGNESIUM SULFATE 1000 MG/2 ML VIAL (PED) IV ONE (05:00)
[2017-01-08] MEDS ORDERED: DEXMEDETOMIDINE INJ 50 ML IV ONE (05:00)
[2017-01-08] MEDS ORDERED: CALCIUM CHLORIDE 10% SOLN 1 GRAM/10 ML SYR IV ONE (05:00)
[2017-01-08] MEDS ORDERED: NITROGLYCERIN-DEXTROSE INJ 250 ML IV ONE (05:00)
[2017-01-08] MEDS ORDERED: PROTAMINE SULFATE 250 MG/25 ML VIAL IV ONE ×2 (05:00→11:50)
[2017-01-08] MEDS ORDERED: AMINOCAPROIC ACID INJ 250 MG/ML 20 ML VIAL IV ONE (05:00)
[2017-01-08] MEDS ORDERED: ACETAMINOPHEN 1000 MG/100 ML VIAL IV ONE (05:00)
[2017-01-08] MEDS ORDERED: ceFAZolin INJ 1,000 MG VIAL IV ONE (05:00)
[2017-01-08] MEDS ORDERED: HEPARIN SODIUM - SQ 10,000 UNITS/ML VIAL SQ ONE (05:00)
[2017-01-08 05:39] LABS: APTT (PATIENT) 74.6 SEC (24.3-30.1)
[2017-01-08] MEDS ORDERED: ceFAZolin 2 GM PREMIX 50 ML ONE (06:23)
[2017-01-08] MEDS ORDERED: VANCOMYCIN HCL 1000 MG VIAL ONE (06:23)
[2017-01-08] MEDS ORDERED: HEPARIN SODIUM - SQ 10,000 UNITS/ML VIAL ONE (06:24)
[2017-01-08] MEDS ORDERED: methylPREDNISolone SOD SUCC 125 MG/2 ML VIAL ONE (06:24)
[2017-01-08] MEDS ORDERED: CARDIOPLEGIC IRR 1,000 ML ONE (06:44)
[2017-01-08] MEDS ORDERED: POTASSIUM CHLORIDE 40 MEQ/20 ML VIAL ONE (06:45)
[2017-01-08] MEDS ORDERED: MANNITOL INJ 50 ML ONE (06:45)
[2017-01-08] MEDS ORDERED: ALBUMIN HUMAN 25% 12.5 GM/50 ML BAGP IV ONE (06:46)
[2017-01-08] MEDS ORDERED: HEPARIN SODIUM - IV 10,000 UNITS/10 ML VIAL ONE (06:46)
--- NOTE | 2017-01-08 07:18 | PD.ONC.PN ---
Subjective Subjective Remarks i am nervous fo rsurgery. But i think i will be Ok Daughter at bedside. Objective Data Date Time Temp Pulse Resp B/P Pulse Ox O2 Delivery O2 Flow Rate FiO2 01/08/17 06:10 98.3 85 16 116/68 99 01/08/17 06:00 68 01/08/17 05:00 88 01/08/17 04:00 80 01/08/17 03:00 87 01/08/17 02:00 83 01/08/17 01:09 97.9 83 16 88/55 99 01/08/17 01:00 82 01/08/17 00:00 118 01/07/17 23:00 83 01/07/17 22:00 90 01/07/17 21:00 92 01/07/17 20:18 98.1 95 16 122/80 98 01/07/17 20:04 95 Room Air 01/07/17 20:00 91 01/07/17 19:00 141 01/07/17 18:00 89 01/07/17 18:00 98.5 89 18 159/86 100 01/07/17 11:39 100 01/07/17 09:00 76 01/07/17 08:00 99 Room Air 01/07/17 07:49 98.2 72 18 109/65 97 01/08/17 01/08/17 01/08/17 07:00 15:00 23:00 Intake Total 750 ml Balance 750 ml Result Diagram: 01/07/17 1839 Laboratory Results Laboratory Tests Test 01/07/17 01/07/17 01/07/17 01/08/17 07:30 18:39 22:40 04:41 White Blood Count 4.7 TH/MM3 5.1 TH/MM3 Red Blood Count 3.92 MIL/MM3 4.15 MIL/MM3 Hemoglobin 10.4 GM/DL 11.0 GM/DL Hematocrit 33.0 % 35.0 % Mean Corpuscular Volume 84.3 FL 84.2 FL Mean Corpuscular Hemoglobin 26.6 PG 26.5 PG Mean Corpuscular Hemoglobin 31.6 % 31.5 % Concent Red Cell Distribution Width 14.6 % 14.6 % Platelet Count 298 TH/MM3 345 TH/MM3 Mean Platelet Volume 7.5 FL 7.0 FL Neutrophils (%) (Auto) 46.6 % Lymphocytes (%) (Auto) 36.8 % Monocytes (%) (Auto) 12.7 % Eosinophils (%) (Auto) 3.1 % Basophils (%) (Auto) 0.8 % Neutrophils # (Auto) 2.2 TH/MM3 Lymphocytes # (Auto) 1.7 TH/MM3 Monocytes # (Auto) 0.6 TH/MM3 Eosinophils # (Auto) 0.1 TH/MM3 Basophils # (Auto) 0.0 TH/MM3 CBC Comment DIFF FINAL Differential Comment Prothrombin Time 10.4 SEC Prothromb Time International 0.9 RATIO Ratio Activated Partial 23.1 SEC 39.4 SEC 74.6 SEC Thromboplast Time Culture Results Microbiology Date/Time Procedure Status Source Growth 01/08/17 00:15 Stool Occult Blood (TANIA) - Final Complete Stool Stool HEMOCCULT NEGATIVE Administered Medications Medications (Trade) Dose Ordered Sig/Demetrius Route PRN Reason Start Time Stop Time Status Last Admin Dose Admin Multivitamins/ Minerals Therapeutic (Theragran M Tab) 1 tab DAILY PO 12/29/16 09:00 01/06/17 09:07 Acetaminophen (Tylenol) 650 mg Q6H PRN PO PAIN 1-10 AND/OR FEVER >101F 12/28/16 19:45 12/29/16 12:32 Famotidine (Pepcid Inj) 20 mg Q12HR IV PUSH 12/28/16 21:00 01/07/17 19:46 Docusate Sodium (Colace) 100 mg BID PO 12/28/16 21:00 01/07/17 19:46 Chlorhexidine Gluconate (Chlorhexidine 2% Cloth) Taper DAILY@04 TOP 12/29/16 04:00 12/25/17 03:59 12/29/16 04:00 Sodium Chloride 2 ml 2 ml BID IV FLUSH 01/06/17 21:00 01/07/17 19:46 Heparin Sodium/ Dextrose (Heparin-D5W Inj) 250 ml @ 0 mls/hr TITRATE IV 01/07/17 18:00 01/07/17 19:48 Objective Remarks GENERAL: Pleasant elderly female, sitting upright in room SKIN: Warm and dry. HEAD: Normocephalic. EYES: No injection or drainage. NECK: Supple, trachea midline. CARDIOVASCULAR: Regular rate and rhythm RESPIRATORY: Breath sounds equal bilaterally. No accessory muscle use. GASTROINTESTINAL: Abdomen soft, non-tender, nondistended. EXTREMITIES: No cyanosis NEUROLOGICAL: No obvious focal deficit. Awake, alert, and oriented x3. Assessment/Plan Problem List: (1) Pulmonary embolism Status: Acute Plan: 01/08 surgery today for atrial mass. ? myxoma D/W pt and daughter Resume eliquis after surgery when surgeon clears it. 01/07: hold Eliquis for procedure today. Sternotomy tomorrow 01/05: THADDEUS today showed mass in R atrium. CT consulted. Tolerating Eliquis well. 01/02: continue Eliquis. THADDEUS tomorrow 12/31/16: Transition from heparin to Eliquis tonight. Pt should take 10mg po BID for 7 days followed by 5mg po BID. Discussed with Dr Alvarado. 12/30/16: Continue heparin gt. Monitor for bleeding. Await hypercoagulable workup. (2) Cardiac mass Status: Acute Plan: --right atrial mass -- plan for sternotomy with mass excision on 01/08 per CTS. Assessment 61 y/o female admitted for syncope, SOB and chest pain found to have a PE. Problem Qualifiers (1) Pulmonary embolism: Qualified Code: I26.09 - Other acute pulmonary embolism with acute cor pulmonale Russell Rodriguez MD January 08, 2017 07:18
--- NOTE | 2017-01-08 08:03 | ETE ---
Study Study Date:01/05/2017 STUDY CONCLUSIONS SUMMARY - Left ventricle: The cavity size was normal. Wall thickness was normal. Systolic function was normal. The estimated ejection fraction was in the range of 55% to 60%. Wall motion was normal; there were no regional wall motion abnormalities. - Aortic valve: No evidence of vegetation. - Mitral valve: No evidence of vegetation. Mild regurgitation. - Left atrium: No evidence of thrombus in the atrial cavity or appendage. - Right atrium: There was a 16mm (L) x 12mm (W), mobile mass extending from the inferior vena cava into the right atrial cavity; based on its appearance, myxoma cannot be excluded. - Atrial septum: There was no atrial level shunt. 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 - Tricuspid valve: No evidence of vegetation. - Pulmonic valve: No evidence of vegetation. - Pulmonary arteries: PA peak pressure: 34mm Hg (S). If LV function is below 40, please consider prescribing an ACEI or ARB or document rationale for non-use. PROCEDURE DATA Consent: The risks, benefits, and alternatives to the procedure were explained to the patient and informed consent was obtained. Procedure: Initial setup. The patient was brought to the laboratory in the fasting state. Intravenous access was obtained. Surface ECG leads and pulse oximetric signals were monitored. Sedation. Conscious sedation was administered by cardiology staff. Transesophageal echocardiography. Topical anesthesia was obtained using viscous lidocaine. A transesophageal probe was inserted by the attending gas welding equipment mechanic. Image quality was good. Study completion: All IVs inserted during the procedure were removed. The patient tolerated the procedure well. There were no complications. Transesophageal echocardiography. 2D, complete spectral Doppler, and color Doppler. CARDIAC ANATOMY LEFT VENTRICLE: The cavity size was normal. Wall thickness was normal. Systolic function was normal. The estimated ejection fraction was in the range of 55% to 60%. Wall motion was normal; there were no regional wall motion abnormalities. AORTIC VALVE: Structurally normal valve. Trileaflet; normal thickness leaflets. Cusp separation was normal. No evidence of vegetation. Doppler: No significant regurgitation. Aorta: - There was no atheroma. There was no evidence for dissection. Aortic root: The aortic root was not dilated. Ascending aorta: The ascending aorta was normal in size. Aortic arch: The aortic arch was normal in size. Descending aorta: The descending aorta was normal in size. MITRAL VALVE: Structurally normal valve. Leaflet separation was normal. No evidence of vegetation. Doppler: Mild regurgitation. LEFT ATRIUM: The atrium was normal in size. No evidence of thrombus in the atrial cavity or appendage. The appendage was morphologically a left appendage, multilobulated, and of normal size. Emptying velocity was normal. ATRIAL SEPTUM: There was no atrial level shunt. 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 RIGHT VENTRICLE: The cavity size was normal. Wall thickness was normal. Systolic function was normal. PULMONIC VALVE: Structurally normal valve. No evidence of vegetation. TRICUSPID VALVE: Structurally normal valve. Leaflet separation was normal. No evidence of vegetation. Doppler: Trace to mild regurgitation. PULMONARY ARTERY: The main pulmonary artery was normal-sized. RIGHT ATRIUM: The atrium was normal in size. There was a 16mm (L) x 12mm (W), mobile mass extending from the inferior vena cava into the right atrial cavity; based on its appearance, myxoma cannot be excluded. The appendage was morphologically a right appendage. PERICARDIUM: There was no pericardial effusion. DOPPLER MEASUREMENTS ADULT NORMAL Main pulmonary artery Pressure, S *34 mm Hg =30 Tricuspid valve Regurgitant peak velocity 243 cm/s Peak RV-RA gradient, S 24 mm Hg Systemic veins Estimated CVP 10 mm Hg Right ventricle RV pressure, S *34 mm Hg <30 LEGEND: Mean values are shown as u=mean value. Asterisk (*) mcknight values outside specified normal range. Prepared and signed by Surjit Felix [id number]
--- NOTE | 2017-01-08 08:28 | HHI.PR ---
Subjective Remarks no problems overnight. Objective Vitals heart reg lng cta abd s/nt ext no edema Vital Signs Date Time Temp Pulse Resp B/P Pulse Ox O2 Delivery O2 Flow Rate FiO2 01/08/17 06:10 98.3 85 16 116/68 99 01/08/17 06:00 68 01/08/17 05:00 88 01/08/17 04:00 80 01/08/17 03:00 87 01/08/17 02:00 83 01/08/17 01:09 97.9 83 16 88/55 99 01/08/17 01:00 82 01/08/17 00:00 118 01/07/17 23:00 83 01/07/17 22:00 90 01/07/17 21:00 92 01/07/17 20:18 98.1 95 16 122/80 98 01/07/17 20:04 95 Room Air 01/07/17 20:00 91 01/07/17 19:00 141 01/07/17 18:00 89 01/07/17 18:00 98.5 89 18 159/86 100 01/07/17 11:39 100 01/07/17 09:00 76 01/07/17 01/07/17 01/08/17 15:00 23:00 07:00 Intake Total 240 ml 750 ml Output Total 0 ml Balance 240 ml 750 ml Intake Oral 240 ml 600 ml IV Total 150 ml Output Urine Total 0 ml # Voids 0 3 # Bowel Movements 0 1 Result Diagram: 01/07/17 1839 Imaging Last Impressions Abdomen/Pelvis CT 12/31/16 0000 Signed Impressions: Service Date/Time: December 21:59 - CONCLUSION: Liver cyst. Otherwise unremarkable noncontrast CT appearance of the abdomen and pelvis. Santhosh Alejandro MD Chest X-Ray 12/29/16 1118 Signed Impressions: Service Date/Time: Thursday, December 29, 2016 11:31 - CONCLUSION: No acute disease. Left jugular central line with tip in the SVC and no pneumothorax. Delgado Gregory MD Head CT 12/29/16 0859 Signed Impressions: Service Date/Time: Thursday, December 29, 2016 09:38 - CONCLUSION: Mild sphenoid sinus disease. No acute intracranial findings. Saman Combs MD CT Angiography 12/28/16 0936 Signed Impressions: Service Date/Time: Wednesday, December 28, 2016 18:42 - CONCLUSION: Extensive bilateral pulmonary embolism. Santhosh Alejandro MD A/P Problem List: (1) Pulmonary embolism Status: Acute Plan: - CTA (12/28/16) --> extensive b/l PE - initial Echocardiogram showed large RA thrombus. - Pt received tPA & IV Heparin - No arrhythmia noted. - Hypercoag w/u has been initiated and pt will f/u with Dr. Jennifer berrypt. - Pt has been transitioned to PO Eliqis 10mg po BID until 01/07, then decrease to 5mg po BID - Pt is comfortable on RA - CT abd/pelvis (12/31) --> Liver cyst. Otherwise unremarkable noncontrast CT appearance of the abdomen and pelvis. 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 (2) Cardiac mass Status: Acute Plan: see above Problem Qualifiers (1) Pulmonary embolism: Qualified Code: I26.09 - Other acute pulmonary embolism with acute cor pulmonale Forrest Peterson MD January 08, 2017 08:28
[2017-01-08] MEDS: MULTIVITAMINS/MINERALS THERAPEUTIC TAB PO SCH (09:00)
[2017-01-08] MEDS: SODIUM CHLORIDE 0.9% FLUSH 10 ML FLUSH IV FLUSH SCH ×2 (09:00→21:00)
[2017-01-08] MEDS: FAMOTIDINE 20 MG/2 ML VIAL IV PUSH SCH ×2 (09:00→21:14)
[2017-01-08] MEDS: DOCUSATE SODIUM 100 MG CAP PO SCH ×2 (09:00→21:14)
[2017-01-08] MEDS ORDERED: LACTATED RINGER'S 1000 ML INJ 500 ML IV PRN (09:46)
--- NOTE | 2017-01-08 09:59 | PD.OP ---
cc: Ivone Lucio MD; Surjit Felix MD Operative Report Date of Surgery: January 08, 2017 Preoperative Diagnosis: (1) Pulmonary embolism (2) Cardiac mass Postoperative Diagnosis: same Procedure: Median sternotomy for excision of right atrial mass THADDEUS Anesthesia: Dr. Fitzgerald Surgeon: Ivone Lucio Safety Equipment Tester(s): Mian Hatch Operation and Findings: The risks, benefits, complications, treatment options, and expected outcomes were discussed with the patient. The possibilities of reaction to medication, pulmonary aspiration, perforation of viscus, bleeding, recurrent infection, the need for additional procedures, failure to diagnose a condition, and creating a complication requiring transfusion or operation were discussed with the patient. The patient concurred with the proposed plan, giving informed consent. The site of surgery properly noted/marked. The patient was taken to Operating Room, identified as Patricio Be and the procedure verified as median sternotomy for excision of right atrial mass, THADDEUS. A Time Out was held and the above information confirmed. Standard monitoring lines and Day catheter were placed. General anesthesia was induced. The patient was prepped and draped in a sterile fashion. A median sternotomy was performed and electrocautery was used to obtain hemostasis. The pericardium was opened and a pericardial sling was created using interrupted 0 silk sutures. The patient was heparinized for cardiopulmonary bypass. The heart was instrumented for cardiopulmonary bypass in the usual manner with bicaval venous drainage. Both the IVC and SVC were encircled with umbilical tapes to isolate the heart during the procedure. Antegrade blood cardioplegia was employed. The patient was placed on cardiopulmonary bypass. An aortic cross- clamp was applied and the heart was arrested using cold blood cardioplegia. The umbilical tapes were ensnared and the right atrium was opened widely. The mass was observed at the junction of the IVC and right atrium on THADDEUS and a ~1 cm pedunculated mass was observed at exactly this location. The mass was excised en bloc and submitted to Pathology. The remainder of the right atrium appeared to be normal. The atrium was closed using a running 4-0 prolene suture. The patient was weaned from cardiopulmonary bypass. Protamine was given. There was no adverse reaction. Decannulation was carried out without incident. Wound was checked for hemostasis which was obtained using electrocautery. A 36 Faroese mediastinal was placed and secured to the skin with 0 silk suture. The sternum was closed with stainless steel wire. The fascia was closed with 1. PDS. The subcutaneous tissue was closed using a running 2-0 Vicryl suture. The skin was closed with 4-0 Monocryl. Sterile dressings were placed. At the end of the operation, all sponge, instruments, and needle counts were correct. The patient was transferred to the CICU in stable condition. Findings: 1 cm right atrial mass XC: 11 min CPB: 29 min Drains: mediastinal x 1 Specimens: right atrial mass Complications: none Disposition: to CVICU in stable condition Ivone Lucio MD January 08, 2017 09:59
[2017-01-08] MEDS ORDERED: RESP: ALBUTEROL 2.5 MG/IPRATROPIUM 0.5 MG NEB (PRN) NEB (10:00)
[2017-01-08] MEDS ORDERED: CALCIUM CHLORIDE INJ 1 GM in SODIUM CHLORIDE 0.9% INJ 100 ML IV PRN (10:00)
[2017-01-08] MEDS ORDERED: ACETAMINOPHEN 650 MG SUPP RECTAL PRN (10:00)
[2017-01-08] MEDS ORDERED: RESP: RACEPINEPHRINE 2.25% 0.5 ML NEB NEB PRN (10:00)
[2017-01-08] MEDS ORDERED: ACETAMINOPHEN 325 MG TAB PO PRN (10:00)
[2017-01-08] MEDS ORDERED: ONDANSETRON HCL 4 MG/2 ML VIAL IV PUSH PRN (10:00)
[2017-01-08] MEDS ORDERED: DEXTROSE 50% IN WATER 50 ML VIAL(D50) IV PUSH PRN (10:00)
[2017-01-08] MEDS ORDERED: hydrALAZINE HCL 20 MG/ML VIAL IV PRN (10:00)
[2017-01-08] MEDS ORDERED: Post-op Orders (for Pharmacy) MISC OTHER ONE (10:00)
[2017-01-08] MEDS ORDERED: METOPROLOL TARTRATE 5 MG/5 ML VIAL IV PUSH PRN (10:00)
[2017-01-08] MEDS ORDERED: POTASSIUM CHLOR 20 MEQ PREMIX 100 ML IV PRN ×3 (10:00)
[2017-01-08] MEDS ORDERED: CALCIUM CHLORIDE 10% 1 GRAM/10 ML VIAL IV PRN (10:00)
[2017-01-08] MEDS ORDERED: MAGNESIUM SULFATE INJ 2 GM in SODIUM CHLORIDE 0.9% INJ 100 ML IV PRN ×4 (10:00)
[2017-01-08] MEDS ORDERED: POTASSIUM CHLORIDE 20 MEQ CONTROLLED RELEASE TAB PO PRN ×2 (10:00)
[2017-01-08] MEDS ORDERED: CLEVIDIPINE INJ 50 ML IV SCH (10:00)
[2017-01-08] MEDS: RESP: ALBUTEROL 2.5 MG/IPRATROPIUM 0.5 MG NEB (SCH) NEB ×3 (10:00→21:07)
[2017-01-08] MEDS ORDERED: INSULIN REGULAR (IV INFUSION) 100 UNITS in SODIUM CHLORIDE 0.9% INJ 99 ML IV SCH (10:00)
[2017-01-08] MEDS ORDERED: MIDAZOLAM HCL 5 MG/5 ML VIAL ONE (10:48)
[2017-01-08] MEDS ORDERED: SUGAMMADEX SODIUM 200 MG/2 ML VIAL IV PUSH ONE ×2 (10:49)
[2017-01-08] MEDS ORDERED: fentaNYL CITRATE 1000 MCG/20 ML VIAL ONE (10:49)
[2017-01-08] MEDS: ACETAMINOPHEN 1000 MG/100 ML VIAL IV SCH ×3 (11:09→23:00)
--- NOTE | 2017-01-08 11:23 | RADRPT ---
EXAM DATE/TIME: 01/08/2017 10:49 [facility] COMPARISON: CHEST SINGLE AP, December 29, 2016, 11:31. INDICATIONS : Post op open heart. MEDICAL HISTORY : Retroperitoneal gliosarcoma or adrenocortical carcinoma SURGICAL HISTORY : Hysterectomy. ENCOUNTER: Initial ACUITY: 1 day PAIN SCORE: 0/10 LOCATION: Bilateral chest FINDINGS: A single view of the chest demonstrates hypoinflation with some minimal atelectatic changes laterally above the left hemidiaphragm. Lungs are otherwise clear. Accounting for low lung finds some of the h eart size is borderline prominent. Interval placement of median sternotomy wires are indicative of th e reported recent surgical intervention. Left IJ central venous catheter has been removed and replace d with a left subclavian introducer sheath. The catheter cannulated the introducer sheath projects ov er the central portion of the SVC. No pneumothorax. Osseous structures are intact. CONCLUSION: 1. Hypoinflation with minimal atelectatic changes laterally above the left hemidiaphragm. 2. Lungs are otherwise clear with no confluent infiltrate or pneumothorax. Leonardo Nava MD on January 08, 2017 at 11:19 Board Certified Radiologist. This report was verified electronically.
[2017-01-08] MEDS ORDERED: LACTATED RINGER'S 1000 ML INJ 1,000 ML IV ONE (11:50)
[2017-01-08] MEDS ORDERED: VECURONIUM BROMIDE 20 MG VIAL IV ONE (11:50)
[2017-01-08] MEDS ORDERED: PHENYLEPHRINE HCL 10 MG/ML VIAL IV ONE (11:50)
[2017-01-08] MEDS ORDERED: ePHEDrine/NS 25 MG/5 ML SYR IV ONE (11:50)
[2017-01-08] MEDS ORDERED: NITROGLYCERIN 50 MG/DEXTROSE 5% SOLN 250 ML BTL IV ONE (11:50)
[2017-01-08] MEDS ORDERED: NORMOSOL R INJ 2,000 ML IV ONE (11:50)
[2017-01-08] MEDS ORDERED: SODIUM CHLOR 0.9% 250 ML INJ 500 ML IV ONE (11:50)
[2017-01-08] MEDS: AMIODARONE 200 MG TAB PO SCH ×2 (14:22→21:14)
[2017-01-08] MEDS: ceFAZolin 2 GM PREMIX 50 ML IV SCH ×2 (15:51→23:03)
[2017-01-08] MEDS: oxyCODONE/ACETAMINOPHEN 5 MG/325 MG TAB PO PRN ×2 (19:47→23:00)
[2017-01-09] VITALS (17 sets, daily range): BP systolic 101–126; BP diastolic 49–69; PULSE 68–86; RESP 16–20; TEMP 98.2–98.6; O2SAT 94–100
[2017-01-09] MEDS: oxyCODONE/ACETAMINOPHEN 5 MG/325 MG TAB PO PRN ×6 (02:23→23:53)
[2017-01-09] MEDS: RESP: ALBUTEROL 2.5 MG/IPRATROPIUM 0.5 MG NEB (SCH) NEB ×4 (03:53→19:24)
[2017-01-09] MEDS: CHLORHEXIDINE GLUCONATE 2 % 1 PACK (2 CLOTHS) TOP SCH ×2 (04:00→21:58)
[2017-01-09] MEDS: ACETAMINOPHEN 1000 MG/100 ML VIAL IV SCH (04:52)
[2017-01-09] MEDS: AMIODARONE 200 MG TAB PO SCH ×3 (05:27→21:57)
[2017-01-09] MEDS: PANTOPRAZOLE SOD 40 MG DELAYED RELEASE TAB PO SCH (05:27)
[2017-01-09 05:36] LABS: HEMATOCRIT 28.2 % (35.0-46.0); MEAN CELL VOLUME 83.3 FL (80.0-100.0); MEAN CORPUSCULAR HEMOGLOBIN 27.3 PG (27.0-34.0); MEAN CORPUSCULAR HGB CONC 32.7 % (32.0-36.0); PLATELET COUNT 249 TH/MM3 (150-450); RED BLOOD COUNT 3.39 MIL/MM3 (4.00-5.30); RED CELL DISTRIBUTION WIDTH 14.3 % (11.6-17.2); REVIEW FLAG FINAL; WHITE BLOOD COUNT 9.1 TH/MM3 (4.0-11.0)
[2017-01-09 05:42] LABS: BICARBONATE 21.7 MEQ/L (21.0-32.0); MAGNESIUM 2.5 MG/DL (1.5-2.5); POTASSIUM 4.6 MEQ/L (3.5-5.1)
--- NOTE | 2017-01-09 05:58 | RADRPT ---
EXAM DATE/TIME: 01/09/2017 04:28 [facility] COMPARISON: No previous studies available for comparison. INDICATIONS : Shortness of breath, possible pulmonary disease. MEDICAL HISTORY : Adrenocortical carcinoma SURGICAL HISTORY : Hysterectomy. CABG. ENCOUNTER: Subsequent ACUITY: 2 days PAIN SCORE: Non-responsive. LOCATION: Bilateral chest FINDINGS: There is bilateral mostly basilar airspace disease. No significant effusion. No pneumothorax. Heart s ize enlarged. Previous sternotomy. Left central line in superior vena cava. CONCLUSION: 1. Mild basilar airspace disease, slightly increased from January 08. Cardiomegaly. Dimitry Morfin MD on January 09, 2017 at 5:56 Board Certified Radiologist. This report was verified electronically.
[2017-01-09] MEDS: MULTIVITAMINS/MINERALS THERAPEUTIC TAB PO SCH (08:31)
[2017-01-09] MEDS: ASPIRIN 81 MG CHEW TAB PO SCH (08:31)
[2017-01-09] MEDS: DOCUSATE SODIUM 100 MG CAP PO SCH ×2 (08:31→21:57)
[2017-01-09] MEDS: SODIUM CHLORIDE 0.9% FLUSH 10 ML FLUSH IV FLUSH SCH ×2 (08:32→21:57)
[2017-01-09] MEDS: ceFAZolin 2 GM PREMIX 50 ML IV SCH ×3 (08:34→23:54)
[2017-01-09] MEDS: FAMOTIDINE 20 MG/2 ML VIAL IV PUSH SCH ×2 (09:00→21:58)
--- NOTE | 2017-01-09 09:19 | PD.CAR.PN ---
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 PMH: chronic back pain , 01/07 s/p heart cath today , no evidence of coronary disease scheduled for median sternotomy / excision atrial myexoma in am 01/09 Doing well Transfer Telemetry Ambulate Objective: Vital Signs Date Time Temp Pulse Resp B/P Pulse Ox O2 Delivery O2 Flow Rate FiO2 01/09/17 07:52 98.2 84 20 102/58 98 126/64 01/09/17 07:52 98 Nasal Cannula 2.00 01/09/17 03:00 98.6 68 16 125/59 94 01/09/17 03:00 96 Nasal Cannula 2.00 01/09/17 03:00 72 01/08/17 23:00 94 Nasal Cannula 1.00 01/08/17 23:00 58 01/08/17 23:00 98.3 57 12 114/66 96 116/54 01/08/17 21:08 96 Nasal Cannula 2.00 01/08/17 19:00 97.9 67 16 103/64 98 116/76 01/08/17 19:00 98 Nasal Cannula 2.00 01/08/17 19:00 64 01/08/17 15:00 70 01/08/17 15:00 98 Nasal Cannula 2.00 01/08/17 15:00 98.3 70 18 102/59 98 106/54 01/08/17 14:00 96 Nasal Cannula 4.00 01/08/17 11:30 62 01/08/17 11:00 97.9 62 18 92/57 97 109/59 01/08/17 11:00 97 Nasal Cannula 4.00 01/08/17 10:35 97 Nasal Cannula 4.00 01/08/17 10:35 97.9 64 16 100/57 97 113/57 Labs: Laboratory Tests Test 01/09/17 04:30 White Blood Count 9.1 TH/MM3 (4.0-11.0) Red Blood Count 3.39 MIL/MM3 (4.00-5.30) Hemoglobin 9.2 GM/DL (11.6-15.3) Hematocrit 28.2 % (35.0-46.0) Mean Corpuscular Volume 83.3 FL (80.0-100.0) Mean Corpuscular Hemoglobin 27.3 PG (27.0-34.0) Mean Corpuscular Hemoglobin 32.7 % Concent (32.0-36.0) Red Cell Distribution Width 14.3 % (11.6-17.2) Platelet Count 249 TH/MM3 (150-450) Mean Platelet Volume 7.7 FL (7.0-11.0) Sodium Level 139 MEQ/L (136-145) Potassium Level 4.6 MEQ/L (3.5-5.1) Chloride Level 106 MEQ/L (98-107) Carbon Dioxide Level 21.7 MEQ/L (21.0-32.0) Anion Gap 11 MEQ/L (5-15) Blood Urea Nitrogen 14 MG/DL (7-18) Creatinine 0.77 MG/DL (0.50-1.00) Estimat Glomerular Filtration 92 ML/MIN (>89) Rate Random Glucose 121 MG/DL (74-106) Calcium Level 8.4 MG/DL (8.5-10.1) Magnesium Level 2.5 MG/DL (1.5-2.5) Result Diagram: 01/09/1742901/09/17429 (1) Pulmonary embolism Plan: resume eliquis after surgery (2) Cardiac mass Plan: for excision atrial myexoma in am Problem Qualifiers (1) Pulmonary embolism: Qualified Code: I26.09 - Other acute pulmonary embolism with acute cor pulmonale Spencer Garcias MD January 09, 2017 09:19
[2017-01-09] MEDS ORDERED: GLUCAGON 1 MG/ML VIAL OTHER PRN (09:30)
[2017-01-09] MEDS ORDERED: DEXTROSE 50% IN WATER 50 ML VIAL(D50) IV PRN (09:30)
[2017-01-09] MEDS ORDERED: BISACODYL 10 MG SUPP RECTAL PRN (09:30)
[2017-01-09] MEDS ORDERED: SOD PHOSPHATE/SOD BIPHOSPHATE (ADULT) ENEMA 133ML RECTAL PRN (09:30)
[2017-01-09] MEDS: INSULIN ASPART SUPPLEMENTAL SCALE SQ SCH ×4 (10:00→21:58)
--- NOTE | 2017-01-09 16:13 | EKG ---
Date Performed: 01/09/2017 Time Performed: 05:48:08 PTAGE: 61 years EKG: Probable accelerated junctional rhythm Incomplete RBBB Anteroseptal T wave changes are nons pecific Low QRS voltages in precordial leads Compared to previous tracing, the patient now appears to be in a junctional rhythm Abnormal ECG NO PREVIOUS TRACING DOCTOR: Mariela Zamudio Interpretating Date/Time 01/09/2017 16:12:12
[2017-01-09] MEDS: SENNOSIDES 8.6 MG TAB PO SCH (21:57)
[2017-01-10] VITALS (29 sets, daily range): BP systolic 92–123; BP diastolic 50–69; PULSE 72–97; RESP 18–21; TEMP 97.7–98.8; O2SAT 90–96
[2017-01-10] MEDS: INSULIN ASPART SUPPLEMENTAL SCALE SQ SCH ×5 (02:00→21:00)
[2017-01-10] MEDS: AMIODARONE 200 MG TAB PO SCH ×3 (05:35→22:12)
[2017-01-10] MEDS: PANTOPRAZOLE SOD 40 MG DELAYED RELEASE TAB PO SCH (05:35)
[2017-01-10 05:49] LABS: AUTOMATED NEUTROPHIL # 6.9 TH/MM3 (1.8-7.7); BASOPHIL % 0.2 % (0.0-2.0); HEMATOCRIT 28.1 % (35.0-46.0); HEMO FLAGS DIFF FINAL; LYMPH % 17.8 % (9.0-44.0); LYMPHOCYTE # 1.8 TH/MM3 (1.0-4.8); MEAN CELL VOLUME 82.1 FL (80.0-100.0); MEAN CORPUSCULAR HEMOGLOBIN 26.2 PG (27.0-34.0); MEAN CORPUSCULAR HGB CONC 31.9 % (32.0-36.0); MONO % 14.2 % (0.0-8.0); NEUT % 67.8 % (16.0-70.0); PLATELET COUNT 243 TH/MM3 (150-450); RED BLOOD COUNT 3.42 MIL/MM3 (4.00-5.30); RED CELL DISTRIBUTION WIDTH 14.8 % (11.6-17.2); WHITE BLOOD COUNT 10.2 TH/MM3 (4.0-11.0)
[2017-01-10 06:04] LABS: BICARBONATE 26.8 MEQ/L (21.0-32.0); MAGNESIUM 2.4 MG/DL (1.5-2.5); POTASSIUM 4.6 MEQ/L (3.5-5.1)
[2017-01-10] MEDS: RESP: ALBUTEROL 2.5 MG/IPRATROPIUM 0.5 MG NEB (SCH) NEB ×3 (07:32→19:19)
--- NOTE | 2017-01-10 08:57 | PD.CAR.PN ---
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 PMH: chronic back pain , 01/07 s/p heart cath today , no evidence of coronary disease scheduled for median sternotomy / excision atrial myexoma in am 01/09 Doing well Transfer Telemetry 01/10 Doing well D/C CT today Discharge planning Ambulate Objective: Vital Signs Date Time Temp Pulse Resp B/P Pulse Ox O2 Delivery O2 Flow Rate FiO2 01/10/17 06:21 78 01/10/17 05:00 82 01/10/17 04:33 97 01/10/17 03:40 78 01/10/17 03:07 98.4 80 21 123/57 93 01/10/17 03:07 93 Room Air 01/10/17 02:15 80 01/10/17 01:08 79 01/10/17 00:00 81 01/09/17 23:10 98.2 80 20 101/49 99 01/09/17 23:10 99 Room Air 01/09/17 23:09 81 01/09/17 22:00 82 01/09/17 21:00 86 01/09/17 20:00 86 01/09/17 19:50 84 01/09/17 19:50 98.6 86 20 107/65 100 01/09/17 19:50 100 Nasal Cannula 1.00 01/09/17 19:25 95 Nasal Cannula 3.00 01/09/17 18:00 82 01/09/17 17:00 78 01/09/17 16:07 78 01/09/17 15:00 98.2 77 18 110/63 96 01/09/17 15:00 79 01/09/17 15:00 96 Nasal Cannula 2.00 01/09/17 11:08 98.4 85 18 113/69 97 Arterial Line 01/09/17 11:08 98 Nasal Cannula 2.00 01/09/17 11:00 84 01/09/17 09:32 97 Nasal Cannula 2.00 Labs: Laboratory Tests Test 01/10/17 05:00 White Blood Count 10.2 TH/MM3 (4.0-11.0) Red Blood Count 3.42 MIL/MM3 (4.00-5.30) Hemoglobin 8.9 GM/DL (11.6-15.3) Hematocrit 28.1 % (35.0-46.0) Mean Corpuscular Volume 82.1 FL (80.0-100.0) Mean Corpuscular Hemoglobin 26.2 PG (27.0-34.0) Mean Corpuscular Hemoglobin 31.9 % Concent (32.0-36.0) Red Cell Distribution Width 14.8 % (11.6-17.2) Platelet Count 243 TH/MM3 (150-450) Mean Platelet Volume 7.4 FL (7.0-11.0) Neutrophils (%) (Auto) 67.8 % (16.0-70.0) Lymphocytes (%) (Auto) 17.8 % (9.0-44.0) Monocytes (%) (Auto) 14.2 % (0.0-8.0) Eosinophils (%) (Auto) 0.0 % (0.0-4.0) Basophils (%) (Auto) 0.2 % (0.0-2.0) Neutrophils # (Auto) 6.9 TH/MM3 (1.8-7.7) Lymphocytes # (Auto) 1.8 TH/MM3 (1.0-4.8) Monocytes # (Auto) 1.4 TH/MM3 (0-0.9) Eosinophils # (Auto) 0.0 TH/MM3 (0-0.4) Basophils # (Auto) 0.0 TH/MM3 (0-0.2) CBC Comment DIFF FINAL Differential Comment Sodium Level 136 MEQ/L (136-145) Potassium Level 4.6 MEQ/L (3.5-5.1) Chloride Level 103 MEQ/L (98-107) Carbon Dioxide Level 26.8 MEQ/L (21.0-32.0) Anion Gap 6 MEQ/L (5-15) Blood Urea Nitrogen 11 MG/DL (7-18) Creatinine 0.90 MG/DL (0.50-1.00) Estimat Glomerular Filtration 77 ML/MIN (>89) Rate Random Glucose 131 MG/DL (74-106) Calcium Level 8.9 MG/DL (8.5-10.1) Magnesium Level 2.4 MG/DL (1.5-2.5) Result Diagram: 01/10/17 0500 01/10/17 0500 (1) Pulmonary embolism Plan: resume eliquis after surgery (2) Cardiac mass Plan: for excision atrial myexoma in am Problem Qualifiers (1) Pulmonary embolism: Qualified Code: I26.09 - Other acute pulmonary embolism with acute cor pulmonale Spencer Garcias MD January 10, 2017 08:57
[2017-01-10] MEDS: DOCUSATE SODIUM 100 MG CAP PO SCH ×2 (09:01→21:42)
[2017-01-10] MEDS: MULTIVITAMINS/MINERALS THERAPEUTIC TAB PO SCH (09:01)
[2017-01-10] MEDS: MAGNESIUM HYDROXIDE SUSP 30 ML CUP PO SCH (09:01)
[2017-01-10] MEDS: ASPIRIN 81 MG CHEW TAB PO SCH (09:01)
[2017-01-10] MEDS: POLYETHYLENE GLYCOL 17 GM PKG PO SCH (09:01)
[2017-01-10] MEDS: SODIUM CHLORIDE 0.9% FLUSH 10 ML FLUSH IV FLUSH SCH ×2 (09:03→21:42)
[2017-01-10] MEDS: FAMOTIDINE 20 MG/2 ML VIAL IV PUSH SCH ×2 (09:03→21:42)
[2017-01-10] MEDS: oxyCODONE/ACETAMINOPHEN 5 MG/325 MG TAB PO PRN ×2 (09:16→21:42)
[2017-01-10] MEDS: SENNOSIDES 8.6 MG TAB PO SCH (21:42)
[2017-01-11] VITALS (27 sets, daily range): BP systolic 97–148; BP diastolic 57–70; PULSE 66–83; RESP 17–18; TEMP 98.2–98.8; O2SAT 93–97
[2017-01-11] MEDS: CHLORHEXIDINE GLUCONATE 2 % 1 PACK (2 CLOTHS) TOP SCH (00:40)
[2017-01-11] MEDS: AMIODARONE 200 MG TAB PO SCH ×2 (05:37→21:42)
[2017-01-11] MEDS: PANTOPRAZOLE SOD 40 MG DELAYED RELEASE TAB PO SCH (05:37)
[2017-01-11] MEDS: INSULIN ASPART SUPPLEMENTAL SCALE SQ SCH ×4 (05:53→21:00)
[2017-01-11] MEDS: RESP: ALBUTEROL 2.5 MG/IPRATROPIUM 0.5 MG NEB (SCH) NEB (07:15)
[2017-01-11] MEDS: SODIUM CHLORIDE 0.9% FLUSH 10 ML FLUSH IV FLUSH SCH ×2 (07:58→21:41)
[2017-01-11] MEDS: FAMOTIDINE 20 MG/2 ML VIAL IV PUSH SCH (08:01)
[2017-01-11] MEDS: POLYETHYLENE GLYCOL 17 GM PKG PO SCH (08:01)
[2017-01-11] MEDS: DOCUSATE SODIUM 100 MG CAP PO SCH ×2 (08:02→21:00)
[2017-01-11] MEDS: MAGNESIUM HYDROXIDE SUSP 30 ML CUP PO SCH (08:02)
[2017-01-11] MEDS: ASPIRIN 81 MG CHEW TAB PO SCH (08:02)
[2017-01-11] MEDS: MULTIVITAMINS/MINERALS THERAPEUTIC TAB PO SCH (08:02)
[2017-01-11] MEDS: oxyCODONE/ACETAMINOPHEN 5 MG/325 MG TAB PO PRN ×2 (08:10→12:04)
[2017-01-11] MEDS ORDERED: FUROSEMIDE 40 MG/4 ML VIAL IV PUSH ONE (10:45)
[2017-01-11] MEDS ORDERED: BISACODYL 10 MG SUPP RECTAL ONE (10:45)
[2017-01-11] MEDS ORDERED: DOCU1CAP39 PO (12:01)
[2017-01-11] MEDS ORDERED: AMIO200T PO (12:01)
[2017-01-11] MEDS ORDERED: Aspirin Chew PO (12:01)
[2017-01-11] MEDS ORDERED: THERM PO (12:01)
[2017-01-11] MEDS ORDERED: APIX5TAB PO (12:01)
[2017-01-11] MEDS: APIXABAN 5 MG TABLET PO SCH ×2 (12:06→21:43)
[2017-01-11] MEDS ORDERED: FUROSEMIDE 40 MG TAB PO ONE (12:30)
--- NOTE | 2017-01-11 14:25 | HHI.FF ---
Face to Face Verification Diagnosis: (1) Pulmonary embolism (2) Cardiac mass (3) excision right atrial mass (4) Blood loss anemia Home Health Nursing Order: Signs/symptoms of disease process Wound care and dressing changes Nursing assessment with vital signs Instructions: PREVENA Single Use Negative Wound Therapy System Caregiver Instruction Sheet 1. A Prevena dressing system was applied to the chest incision during surgery , to promote wound healing. It works via a suction device (negative pressure wound therapy) to remove low to moderate levels of exudate (drainage) and infectious materials. We recommend that the device stay in place for up to seven days, from day of surgery. 2. Day of Surgery____5/ Day of Removal ____/ 3. The dressing should only be removed by a health respiratory care instructor. Please arrange removal of device to coincide with Home Health visit and or with Nursing staff at Rehab 4. If skin reddening or irritation of skin occurs, or excessive drainage, please notify the Cardiovascular Surgeons office at [phone]. 5. Light showering is permissible; however the pump should be disconnected and placed in safe location, where it will not get wet. The dressing should not be exposed to direct spray or submerged in water. No bath tub / shower only. Ensure the end of the tubing attached to the dressing is facing down so that water does not enter the top of the tube. 6. To remove Prevena dressing: press purple button to turn off device / remove the suction. Then disconnect the tubing from the pump. The fixation strips should be stretched away from the skin and the dressing lifted at one corner and peeled back until it has been fully removed. 7. After removal, it is ok to shower daily using liquid dial soap and clean wash cloth, rinse and pat dry, and leave incision open to air dry. For any concerns regarding Prevena dressing, and or wounds, please contact Silvia Gonzales, patient navigator at [phone] or notify the Cardiovascular Surgeons office at [phone]. Incentive spirometry Q1 hr x 10, while awake, also use acapella device hourly whole awake Sternal Breast Bone Precautions: NO pushing or pulling, ( pt must use sternal pillow to support chest with all activities and with coughing ( takes up to 3 months breast bone to heal ) All females to wear sternal bra , launder as needed Daily incision care: ok to shower daily, no tub bath. Wash all incisions with liquid dial soap, clean wash cloth to each site, rinse and pat dry. Observe for any signs of infection, such as drainage which is dark yellow, aguilera, green or foul smelling. Immediately report to the surgeon any drainage from the chest incision, or legs, and for any abnormal drainage from the chest tube sites. Notify surgeon if any temp >101.5 degrees F. When specialty dressing removed/ or if you do not have one, continue to shower daily as above, then rinse and pat incision dry and paint with betadine daily x 5 days. Allow steri strips to fall off if you have any. Avoid lotions, creams, salves, oils, etc. for the first month Please see attached forms for additional instructions regarding post Open Heart specialty wound vacuum dressings. JOSE or Prevena , Dressing to be removed by Nursing staff on __01/11/[address] Lucio patients , please obtain CBC, BMP, PA & Lat CXR in 2 weeks, results to Dr. Lucio ( prescription will be given) ( ) (Tele: [phone]) , F/U appointment: as per CO instructions: PCP in 2 weeks, CV surgeon 2 weeks, Car Rental Clerk 3-4 weeks For any questions regarding incisions/ dressing / meds / post op care or above Symptoms, Wednesday 8am-5pm Heart & Vascular Surgery Office ( Dr. Garcias & Dr. Lucio), After Hours / Nights (5pm -8am) Weekends and Holidays Please call [facility] ([facility]) Charge Nurse Heart and Vascular Surgery patients *Special attention to sternal dressing Mandatory frequency Assess and evaluation, 4 days in a row The next week 3X week 2 times a week for 4 weeks 1 time a week for 5 weeks Schedule Heart and Vascular patients for full 60 day certification period Initial visit Review Open Heart Surgery Discharge Instructions (Sternal precautions, Activity, Elastic hose, Incision care, Driving, Incentive spirometry, Smoking, [place], Work and other) Need Betadine to paint incision Medication reconciliation Importance of follow up care/ check on appointments Make calendar record temperature daily When to call [facility] at Home nurse, review instructions, phone list Incentive Spirometry, demonstration Visit 1- Begin discharge instruction for patient family and/ or caregiver using teach back method- Signs and symptoms of infection Disease characteristics Medicines and side effects Foods and nutrition/ appetite Infection control/ hand washing/ hygiene Visit 2- Continue teaching Discharge instructions- include additional information on smoking cessation , sternal dressing (sternal vac) Visit 3- Continue teaching- Cough and deep breathing, incision monitoring. Choose my plate Visit 4- Continue teaching- Discuss limitations Discuss how they are feeling Discuss progress toward goals Remaining visits- continue teaching and monitoring For any questions please call : Wednesday 8am-5pm Heart & Vascular Surgery Office ( Dr. Garcias & Dr. Lucio), After Hours / Nights (5pm -8am) Weekends and Holidays Please call [facility] ([facility]) Charge Nurse I have seen patient Patricio Be on 01/11/17. My clinical findings support the need for the requested home health care services because: Deconditioned w/ increased weakness I certify that my clinical findings support that this patient is homebound because: Post-op weakness Marychuy Campbell January 11, 2017 14:25
--- NOTE | 2017-01-11 14:31 | PD.CAR.PN ---
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 weaned off 02 pain controlled additional GI meds given/ re-eval for Home with home health Objective: Vital Signs Date Time Temp Pulse Resp B/P Pulse Ox O2 Delivery O2 Flow Rate FiO2 01/11/17 14:03 75 01/11/17 13:25 17 01/11/17 13:00 74 01/11/17 12:00 78 01/11/17 11:00 96 Room Air 01/11/17 11:00 79 01/11/17 11:00 98.2 77 18 107/59 96 01/11/17 10:00 80 01/11/17 09:00 82 01/11/17 08:00 80 01/11/17 07:56 94 Room Air 01/11/17 07:18 77 01/11/17 07:15 93 21 01/11/17 07:00 98.4 81 17 125/65 94 01/11/17 06:00 76 01/11/17 05:00 77 01/11/17 04:00 74 01/11/17 03:00 71 01/11/17 03:00 98.8 75 18 114/70 96 01/11/17 03:00 Nasal Cannula 01/11/17 02:00 72 01/11/17 01:03 68 01/11/17 00:00 73 01/10/17 23:00 94 Nasal Cannula 2.00 01/10/17 23:00 80 01/10/17 23:00 98.2 78 18 92/50 94 01/10/17 22:00 80 01/10/17 21:00 92 01/10/17 20:24 93 Room Air 01/10/17 20:24 98.8 79 18 119/69 94 01/10/17 20:00 76 01/10/17 19:19 93 21 01/10/17 19:00 80 01/10/17 17:00 76 01/10/17 16:44 95 21 01/10/17 15:43 75 01/10/17 15:26 98.2 77 18 117/68 96 Result Diagram: 01/10/17 0500 01/10/17 0500 Telemetry: NSR (1) Pulmonary embolism Plan: resume eliquis after surgery (2) Cardiac mass Plan: s/p excision atrial myexoma pulm toileting nebs ezpap OOB ambulate eval for discharge in am (3) Blood loss anemia Plan: HGB stable 8.9 Problem Qualifiers (1) Pulmonary embolism: Qualified Code: I26.09 - Other acute pulmonary embolism with acute cor pulmonale Marychuy Campbell January 11, 2017 14:31
--- NOTE | 2017-01-11 14:44 | PD.ONC.PN ---
Subjective Subjective Remarks Afebrile overnight. Pt resting in chair at bedside in no distress. She tells me she is going home tomorrow. Pain is improved. No SOB. She is concerned about the cost of the Eliquis. Objective Data Date Time Temp Pulse Resp B/P Pulse Ox O2 Delivery O2 Flow Rate FiO2 01/11/17 14:03 75 01/11/17 13:25 17 01/11/17 13:00 74 01/11/17 12:00 78 01/11/17 11:00 96 Room Air 01/11/17 11:00 79 01/11/17 11:00 98.2 77 18 107/59 96 01/11/17 10:00 80 01/11/17 09:00 82 01/11/17 08:00 80 01/11/17 07:56 94 Room Air 01/11/17 07:18 77 01/11/17 07:15 93 21 01/11/17 07:00 98.4 81 17 125/65 94 01/11/17 06:00 76 01/11/17 05:00 77 01/11/17 04:00 74 01/11/17 03:00 71 01/11/17 03:00 98.8 75 18 114/70 96 01/11/17 03:00 Nasal Cannula 01/11/17 02:00 72 01/11/17 01:03 68 01/11/17 00:00 73 01/10/17 23:00 94 Nasal Cannula 2.00 01/10/17 23:00 80 01/10/17 23:00 98.2 78 18 92/50 94 01/10/17 22:00 80 01/10/17 21:00 92 01/10/17 20:24 93 Room Air 01/10/17 20:24 98.8 79 18 119/69 94 01/10/17 20:00 76 01/10/17 19:19 93 21 01/10/17 19:00 80 01/10/17 17:00 76 01/10/17 16:44 95 21 01/10/17 15:43 75 01/10/17 15:26 98.2 77 18 117/68 96 01/11/17 01/11/17 01/11/17 07:00 15:00 23:00 Intake Total 240 ml Output Total 250 ml Balance -10 ml Result Diagram: 01/10/17 0500 01/10/17 0500 Administered Medications Medications (Trade) Dose Ordered Sig/Demetrius Route PRN Reason Start Time Stop Time Status Last Admin Dose Admin Multivitamins/ Minerals Therapeutic (Theragran M Tab) 1 tab DAILY PO 12/29/16 09:00 01/11/17 08:02 Sodium Chloride (NS Flush) 2 ml BID IV FLUSH 01/06/17 21:00 01/11/17 07:58 Aspirin (Aspirin Chew) 81 mg DAILY PO 01/09/17 09:00 01/11/17 08:02 Pantoprazole Sodium (Protonix) 40 mg DAILY@06 PO 01/09/17 06:00 01/11/17 05:37 Oxycodone/ Acetaminophen (Percocet 5-325 Mg) 1 tab Q3H PRN PO PAIN SCALE 1 TO 5 01/08/17 10:00 01/11/17 12:04 Docusate Sodium (Colace) 100 mg BID PO 01/09/17 21:00 01/11/17 08:02 Magnesium Hydroxide ([facility]) 30 ml DAILY PO 01/10/17 09:00 01/11/17 08:02 Polyethylene Glycol (Miralax) 17 gm DAILY PO 01/10/17 09:00 01/11/17 08:01 Sennosides (Senokot) 8.6 mg HS PO 01/09/17 21:00 01/10/17 21:42 Insulin Aspart (NovoLOG SUPPLEMENTAL SCALE) 1 ACHS SQ 01/10/17 16:00 01/11/17 11:00 Apixaban (Eliquis) 5 mg BID PO 01/11/17 12:00 01/11/17 12:06 Objective Remarks GENERAL: Pleasant older female, sitting up in chair at bedside in no distress. SKIN: Warm and dry. Midline sternotomy. HEAD: Normocephalic. EYES: No injection or drainage. NECK: Supple, trachea midline. CARDIOVASCULAR: Regular rate and rhythm. Sternotomy incision with dressing covering. No oozing. RESPIRATORY: Breath sounds equal bilaterally. No accessory muscle use. GASTROINTESTINAL: Abdomen soft, non-tender, nondistended. EXTREMITIES: No cyanosis. No edema. NEUROLOGICAL: No obvious focal deficit. Awake, alert, and oriented x3. Assessment/Plan Problem List: (1) Pulmonary embolism Status: Acute Plan: 01/11: Eliquis resumed. Pathology pending for R atrial mass. Pt given discount card for Eliquis. Anticipate discharge tomorrow per RN. 01/08 surgery today for atrial mass. ? myxoma D/W pt and daughter Resume eliquis after surgery when surgeon clears it. 01/07: hold Eliquis for procedure today. Sternotomy tomorrow 01/05: THADDEUS today showed mass in R atrium. CT consulted. Tolerating Eliquis well. 01/02: continue Eliquis. THADDEUS tomorrow 12/31/16: Transition from heparin to Eliquis tonight. Pt should take 10mg po BID for 7 days followed by 5mg po BID. Discussed with Dr Alvarado. 12/30/16: Continue heparin gt. Monitor for bleeding. Await hypercoagulable workup. (2) Cardiac mass Status: Acute Plan: --right atrial mass -- plan for sternotomy with mass excision on 01/08 per CTS. Assessment 61 y/o female admitted for syncope, SOB and chest pain found to have a PE. Attending Statement DEnies any new c/o Eliquis resumed Home tomorrow. The exam, history, and the medical decision-making described in the above note were completed with the assistance of the mid-level provider. I reviewed and agree with the findings presented. I attest that I had a [id number] encounter with the patient on the same day, and personally performed and documented my assessment and findings in the medical record. Problem Qualifiers (1) Pulmonary embolism: Qualified Code: I26.09 - Other acute pulmonary embolism with acute cor pulmonale Celestina Mckeon January 11, 2017 14:44 Russell Rodriguez MD January 11, 2017 17:13
[2017-01-11] MEDS: SENNOSIDES 8.6 MG TAB PO SCH (21:00)
[2017-01-12] VITALS (18 sets, daily range): BP systolic 92–127; BP diastolic 53–66; PULSE 62–80; RESP 16–18; TEMP 98.1–98.8; O2SAT 89–99
[2017-01-12] MEDS: INSULIN ASPART SUPPLEMENTAL SCALE SQ SCH ×3 (06:36→16:00)
[2017-01-12] MEDS: PANTOPRAZOLE SOD 40 MG DELAYED RELEASE TAB PO SCH (06:36)
[2017-01-12] MEDS: SODIUM CHLORIDE 0.9% FLUSH 10 ML FLUSH IV FLUSH SCH (08:56)
[2017-01-12] MEDS: ASPIRIN 81 MG CHEW TAB PO SCH (08:57)
[2017-01-12] MEDS: AMIODARONE 200 MG TAB PO SCH (08:57)
[2017-01-12] MEDS: oxyCODONE/ACETAMINOPHEN 5 MG/325 MG TAB PO PRN (08:57)
[2017-01-12] MEDS: DOCUSATE SODIUM 100 MG CAP PO SCH (08:57)
[2017-01-12] MEDS: APIXABAN 5 MG TABLET PO SCH (08:57)
[2017-01-12] MEDS: MULTIVITAMINS/MINERALS THERAPEUTIC TAB PO SCH (08:57)
[2017-01-12] MEDS: MAGNESIUM HYDROXIDE SUSP 30 ML CUP PO SCH (08:58)
[2017-01-12] MEDS: POLYETHYLENE GLYCOL 17 GM PKG PO SCH (08:58)
[2017-01-12] MEDS ORDERED: WALKER WHEELS/F1 MIS (10:06)
--- NOTE | 2017-01-12 10:33 | RSPPFT ---
DATE OF PROCEDURE: 01/06/17 COMMENTS: Spirometry demonstrates an FEV1 of 1.8 at 71% of predicted, FVC of 2.3 at 72%, FEF 25-75 is 61%. The peak flow is 80% of predicted. Flow volume loops are unavailable. IMPRESSION: 1. Mild obstructive airways disease..
--- NOTE | 2017-01-12 11:13 | HHI.DS ---
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 PMH: chronic back pain , 01/07 s/p heart cath today , no evidence of coronary disease scheduled for median sternotomy / excision atrial myexoma in am CBC/BMP: 01/10/17 0500 01/10/17 0500 Significant Findings Laboratory Tests Test 01/10/17 05:00 Red Blood Count 3.42 MIL/MM3 (4.00-5.30) Hemoglobin 8.9 GM/DL (11.6-15.3) Hematocrit 28.1 % (35.0-46.0) Mean Corpuscular Hemoglobin 26.2 PG (27.0-34.0) Mean Corpuscular Hemoglobin 31.9 % Concent (32.0-36.0) Monocytes (%) (Auto) 14.2 % (0.0-8.0) Monocytes # (Auto) 1.4 TH/MM3 (0-0.9) Estimat Glomerular Filtration 77 ML/MIN (>89) Rate Random Glucose 131 MG/DL (74-106) Imaging Last Impressions Chest X-Ray 01/09/17 0500 Signed Impressions: Service Date/Time: Monday, January 09, 2017 04:28 - CONCLUSION: 1. Mild basilar airspace disease, slightly increased from January 08. Cardiomegaly. Dimitry Morfin MD Lower Extremity Ultrasound 01/06/17 0000 Signed Impressions: Service Date/Time: Friday, January 06, 2017 19:23 - CONCLUSION: 1. Thrombus on the left from the distal femoral vein into the calf. Nic Faustin MD Carotid Artery Ultrasound 01/06/17 0000 Signed Impressions: Service Date/Time: Friday, January 06, 2017 18:58 - CONCLUSION: 1. Elevated velocities on the left as above. CT angiography of the cervicobrachial arch and carotid arteries is recommended for further evaluation if clinically indicated. Nic Faustin MD Abdomen/Pelvis CT 12/31/16 0000 Signed Impressions: Service Date/Time: December 21:59 - CONCLUSION: Liver cyst. Otherwise unremarkable noncontrast CT appearance of the abdomen and pelvis. Santhosh Alejandro MD Head CT 12/29/16 0855 Signed Impressions: Service Date/Time: Thursday, December 29, 2016 09:38 - CONCLUSION: Mild sphenoid sinus disease. No acute intracranial findings. Saman Combs MD CT Angiography 12/28/16 1655 Signed Impressions: Service Date/Time: Wednesday, December 28, 2016 18:42 - CONCLUSION: Extensive bilateral pulmonary embolism. Santhosh Alejandro MD PE at Discharge GENERAL: SKIN: Warm and dry. prevena dressing to chest HEAD: Normocephalic. EYES: No scleral icterus. No injection or drainage. NECK: Supple, trachea midline. No JVD or lymphadenopathy. CARDIOVASCULAR: Regular rate and rhythm without murmurs, gallops, or rubs. mild lower ext edema RESPIRATORY: Breath sounds equal bilaterally. No accessory muscle use. GASTROINTESTINAL: Abdomen soft, non-tender, nondistended. MUSCULOSKELETAL: No cyanosis, or edema. BACK: Nontender without obvious deformity. No CVA tenderness. Hospital Course 01/07 s/p heart cath today , no evidence of coronary disease scheduled for median sternotomy / excision atrial myexoma in am 01/09 Doing well Transfer Telemetry 01/10 Doing well D/C CT today Discharge planning Ambulate 01/11. weaned off 02 pain controlled additional GI meds given/ re-eval for Home with home health 01/12 doing well, path report non organizing blood coagulum, benign cells , myxoma not identified for discharge home today with [facility] back on eliis Pt Condition on Discharge: Good Discharge Disposition: Rehab Inpatient Discharge Instructions DIET: Follow Instructions for: Heart Healthy Diet Activities you can perform: Full Weight Bearing, Shower Only-No Bath Activities to avoid: Strenuous Activity, Driving Additional Activity Instructio: no lifting > 8 lbs or gallon of milk Follow up Referrals: Cardiology with Surjit Felix MD Oncology - 2 Weeks PCP Follow-up Surgical with Ivone Lucio MD New Medications: Walker with Front Wheels (Walker with Front Wheels) 1 Mis Mis 1 EA .ROUTE DIRECTED #1 Ref 0 EA Amiodarone (Amiodarone) 200 Mg Tab 200 MG PO Q12HR heart rhythm #28 Ref 0 TAB Apixaban (Eliquis) 5 Mg Tab 5 MG PO BID Blood Clot Prevention #60 Ref 2 TAB Docusate Sodium (Dok) 100 Mg Cap 100 MG PO BID Constipation #60 Ref 0 CAP Multiple Vitamins W/ Minerals (Thera M Plus) 1 Tab 1 TAB PO DAILY multi vitamin #30 Ref 1 TAB ([Aspirin Chew]) 81 MG CHEW 81 MG PO DAILY #100 Ref 1 TAB.CHEW Discontinued Medications: Multiple Vitamins W/ Minerals (Multivitamin Adults) 1 Tab 1 TAB PO DAILY Nutritional Supplement Ref 0 TAB Marychuy Campbell January 12, 2017 10:57
--- NOTE | 2017-01-12 13:04 | PD.ONC.PN ---
Subjective Subjective Remarks Afebrile overnight. Patient without complaint. Denies pain. No obvious bleeding. Objective Data Date Time Temp Pulse Resp B/P Pulse Ox O2 Delivery O2 Flow Rate FiO2 01/12/17 12:00 67 01/12/17 11:00 96 Room Air 01/12/17 11:00 67 01/12/17 11:00 98.3 70 17 92/53 96 01/12/17 10:00 68 01/12/17 09:00 68 01/12/17 08:00 99 Room Air 01/12/17 08:00 66 01/12/17 07:00 98.3 70 18 101/58 99 01/12/17 07:00 74 01/12/17 06:00 62 01/12/17 05:00 64 01/12/17 04:00 66 01/12/17 04:00 98 Nasal Cannula 2.00 01/12/17 04:00 98.4 67 16 122/66 98 01/12/17 03:00 62 01/12/17 02:00 66 01/12/17 01:00 68 01/12/17 00:00 80 01/12/17 00:00 89 Room Air 01/12/17 00:00 98.8 80 16 108/66 89 01/11/17 23:00 75 01/11/17 22:00 76 01/11/17 21:00 74 01/11/17 20:00 98.4 83 18 148/64 97 01/11/17 20:00 97 Room Air 01/11/17 20:00 70 01/11/17 19:00 72 01/11/17 18:04 68 01/11/17 17:00 73 01/11/17 16:00 66 01/11/17 15:12 98.2 77 17 97/57 95 01/11/17 15:00 Room Air 01/11/17 15:00 73 01/11/17 14:03 75 01/11/17 13:25 17 01/12/17 01/12/17 01/12/17 06:59 14:59 22:59 Intake Total 240 ml Output Total 500 ml Balance -260 ml Result Diagram: 01/10/17 0500 01/10/17 0500 Administered Medications Medications (Trade) Dose Ordered Sig/Demetrius Route PRN Reason Start Time Stop Time Status Last Admin Dose Admin Multivitamins/ Minerals Therapeutic (Theragran M Tab) 1 tab DAILY PO 12/29/16 09:00 01/12/17 08:57 Sodium Chloride (NS Flush) 2 ml BID IV FLUSH 01/06/17 21:00 01/12/17 08:56 Aspirin (Aspirin Chew) 81 mg DAILY PO 01/09/17 09:00 01/12/17 08:57 Pantoprazole Sodium (Protonix) 40 mg DAILY@06 PO 01/09/17 06:00 01/12/17 06:36 Oxycodone/ Acetaminophen (Percocet 5-325 Mg) 1 tab Q3H PRN PO PAIN SCALE 1 TO 5 01/08/17 10:00 01/12/17 08:57 Docusate Sodium (Colace) 100 mg BID PO 01/09/17 21:00 01/11/17 08:02 Magnesium Hydroxide (Milk Of Ildefonso Olivera) 30 ml DAILY PO 01/10/17 09:00 01/11/17 08:02 Polyethylene Glycol (Miralax) 17 gm DAILY PO 01/10/17 09:00 01/11/17 08:01 Sennosides (Senokot) 8.6 mg HS PO 01/09/17 21:00 01/10/17 21:42 Insulin Aspart (NovoLOG SUPPLEMENTAL SCALE) 1 ACHS SQ 01/10/17 16:00 01/11/17 16:00 Amiodarone HCl (Cordarone) 200 mg Q12HR PO 01/11/17 21:00 01/12/17 08:57 Apixaban (Eliquis) 5 mg BID PO 01/11/17 12:00 01/12/17 08:57 Objective Remarks GENERAL: Pleasant female, sitting up in chair at bedside in no distress. SKIN: Warm and dry. Midline sternotomy. +dressing in place. HEAD: Normocephalic. EYES: No injection or drainage. NECK: Supple, trachea midline. CARDIOVASCULAR: Regular rate and rhythm. RESPIRATORY: Breath sounds equal bilaterally. No accessory muscle use. GASTROINTESTINAL: Abdomen soft, non-tender, nondistended. EXTREMITIES: No cyanosis. No edema. NEUROLOGICAL: awake and alert, normal speech. moving all extremities. Assessment/Plan Problem List: (1) Pulmonary embolism Status: Acute Plan: 01/12: continue Eliquis. once discharged follow up in clinic. 01/11: Eliquis resumed. Pathology pending for R atrial mass. Pt given discount card for Eliquis. Anticipate discharge tomorrow per RN. 01/08 surgery today for atrial mass. ? myxoma D/W pt and daughter Resume eliquis after surgery when surgeon clears it. 01/07: hold Eliquis for procedure today. Sternotomy tomorrow 01/05: THADDEUS today showed mass in R atrium. CT consulted. Tolerating Eliquis well. 01/02: continue Eliquis. THADDEUS tomorrow 12/31/16: Transition from heparin to Eliquis tonight. Pt should take 10mg po BID for 7 days followed by 5mg po BID. Discussed with Dr Alvarado. 12/30/16: Continue heparin gt. Monitor for bleeding. Await hypercoagulable workup. 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 --s/p sternotomy with mass excision on 01/08 per CTS. Assessment 61 y/o female admitted for syncope, SOB and chest pain found to have a PE. Attending Statement no c/o Right atrial mass path = no myxoma, but c/w blood clot. continue eliquis. Ok to d/c FU as outpt. Problem Qualifiers (1) Pulmonary embolism: Qualified Code: I26.09 - Other acute pulmonary embolism with acute cor pulmonale Zahra Lyman January 12, 2017 13:03 Russell Rodriguez MD January 12, 2017 23:37
== END 2017-01-12 17:38 | disposition home health service (06) | DRG 981 ==
LOC: NEPC 16:49 → NEDA 19:38 → N03B 12-29 00:36 → N04A 12-31 20:05 → HCIS 01-07 15:11 → HCIN 01-07 18:15 → HCIS 01-08 08:20 → HCVR 01-08 10:40 → HCIN 01-09 14:24
PROVIDERS: ADMIT Internal Medicine Critical Care Medicine; ATTEND Thoracic Surgery (Cardiothoracic Vascular Surgery)
PROC: 02HV33Z Insertion of Infusion Device into Superior Vena Cava, Percutaneous Approach (ICD-10-PCS; 2016-12-29)
PROC: 3E03317 Introduction of Other Thrombolytic into Peripheral Vein, Percutaneous Approach (ICD-10-PCS; 2016-12-29)
PROC: 4A023N7 Measurement of Cardiac Sampling and Pressure, Left Heart, Percutaneous Approach (ICD-10-PCS; 2017-01-07)
PROC: B2111ZZ Fluoroscopy of Multiple Coronary Arteries using Low Osmolar Contrast (ICD-10-PCS; 2017-01-07)
PROC: 02B Heart and Great Vessels, Excision (ICD-10-PCS; principal; 2017-01-08 07:05)
DX: I26.09 Other pulmonary embolism with acute cor pulmonale (principal); J96.91 Respiratory failure, unspecified with hypoxia; I51.3 Intracardiac thrombosis, not elsewhere classified; R74.8 Abnormal levels of other serum enzymes
CPT/HCPCS: 36430; 36556; 36600; 70450; 71010; 71275; 74176; 76937; 80048; 80053; 81001; 82272; 82435; 82550; 82552; 82565; 82805; 82947; 82948; 83036; 83735; 83880; 84100; 84132; 84295; 84484; 84520; 85014; 85025; 85027; 85300; 85303; 85306; 85598; 85610; 85613; 85730; 86850; 86900; 86901; 86920; 86922; 87040; 87641; 88305; 93005; 93306; 93308; 93312; 93318; 93320; 93325; 93454; 93880; 93970; 93998; 94010; 94150; 94640; 94664; 94667; 94668; 96360; 99292; C1769; C1893; C9399; J0131; J0690; J1644; J1815; J1940; J2150; J2250; J2370; J2720; J2930; J2997; J3010; J3370; J3475; J3480; J7030; J7050; J7120; P9016; P9047; Q9963; Q9967